=== PATIENT | male | born 1975 | race Caucasian/White ===

== ENCOUNTER 2019-05-25 01:08 | Inpatient (IN) | payer BC ==
[2019-05-25] MEDS ORDERED: niCARdipine 25 MG in Sodium Chloride 0.9% 250 ML 240 ML IVPB SCH (02:15)
[2019-05-25] MEDS ORDERED: Aspirin Chewable 81 MG TAB ONE (02:46)
[2019-05-25] MEDS ORDERED: niCARdipine 25 MG in Sodium Chloride 0.9% 250 ML 250 ML IVPB SCH (06:09)
[2019-05-25] MEDS ORDERED: Dextrose 5% in Water 1,000 ML IV PRN (06:09)
[2019-05-25] MEDS ORDERED: Insulin Regular 300 UNITS/3 ML VIAL SC PRN (06:09)
[2019-05-25] MEDS ORDERED: Dextrose 50% Abboject 50 ML SYRINGE SLOW IVP PRN (06:09)
[2019-05-25] MEDS ORDERED: Acetaminophen 325 MG TAB PO PRN (06:09)
[2019-05-25 06:57] LABS: Troponin I 0.047 ng/mL (< 0.028)
[2019-05-25] MEDS: Ondansetron PF 4 MG/2 ML Vial IVP PRN ×2 (07:46→15:04)
--- NOTE | 2019-05-25 08:01 | HP ---
PRIMARY CARE PHYSICIAN: Dr. Hood. CHIEF COMPLAINT: Headache and neck pain. HISTORY OF PRESENT ILLNESS: Mr. Gates is a very pleasant 44-year-old gentleman, who has a history of hypertension and diabetes. He also has a history of morbid obesity. He has had hypertension for about 4 years that he can remember, and to his knowledge, it was fairly well controlled up until about 6 months ago. He says he had a doctor's visit in [place] and this was about 3 months ago and he was told that his blood pressure was extremely high of about 200 systolic. He also says that when he saw his primary care physician about 6 months ago, it was also elevated, but he does not remember the exact number. He says he has been compliant on his medications. He has not used any cold or decongestants [id number] and says that he has been compliant with a low-sodium diet. But this morning, he started having headache and neck pain as well as saying that it seems like there was like some lines or a blurred vision on the his left eye. For this reason, he came to the ER for evaluation. In the ER, he was found to have a blood pressure over 200 systolic at an outside emergency room and then was transferred to our facility for further evaluation. Currently, the patient is in the ICU on a Cardene drip and is beginning to feel a little bit better, but does note some difficulty in his vision. REVIEW OF SYSTEMS: All systems were reviewed and are negative except for that mentioned in the history of present illness. PAST MEDICAL HISTORY: Significant for hypertension, diabetes mellitus, and obesity. PAST SURGICAL HISTORY: He has had back surgery before. ALLERGIES: TO MORPHINE, WHICH CAUSES HIM TO ITCH. SOCIAL HISTORY: He is a former smoker. He quit several years ago. He used to smoke a pack a day for 20 years. He also is a former drinker. He used to drink alcohol but no longer. Denies any drug use. FAMILY HISTORY: Significant for diabetes mellitus in his father. CURRENT MEDICATIONS: Include 1. Clonidine 0.2 mg twice daily. 2. Aspirin 81 mg daily. 3. Lovastatin 4 mg daily. 4. Metformin 1000 mg twice daily. 5. Lantus insulin 45 units daily. 6. NovoLog 10 units t.i.d. 7. Jardiance 10 mg daily. 8. 9 mg daily. 9. Gabapentin 600 mg t.i.d. 10. Furosemide 40 mg daily. 11. Amlodipine 2.5 mg daily. PHYSICAL EXAMINATION: GENERAL: He is alert and oriented. He appears to be in no acute distress. VITAL SIGNS: Blood pressure is 196/107, heart rate 101, respiratory rate of 16, temperature, he is afebrile. HEENT: Pupils are equal, round, and reactive to light. Extraocular muscles are intact. Sclerae anicteric. Throat, no erythema, no exudates. NECK: No adenopathy, no bruits. LUNGS: Clear to auscultation. There is no wheezing, no rales, no rhonchi. CARDIOVASCULAR: He has a normal S1, S2. There is no S3 or S4. No murmurs, clicks, or rubs. ABDOMEN: Obese, it is soft, nontender, and nondistended. Positive for bowel sounds. No rebound. No guarding. No organomegaly. EXTREMITIES: There is no clubbing or cyanosis. No edema. No calf tenderness. No joint effusions. He has palpable dorsalis pedis pulses bilaterally. NEUROLOGIC: Grossly nonfocal. LABORATORY DATA: CT scan of the brain is negative for any acute intracranial abnormalities. CBC, white blood cell count is 9.2, hemoglobin 17.3, hematocrit is 55.9, and platelet count is 330. Sodium 141, potassium 3.9, chloride is 104, CO2 is 25, BUN of 28, creatinine 1.97, glucose is 112. EKG, is sinus rhythm. He has a rate of 93 and evidence of an incomplete right bundle-branch block. This is by my reading. Chest x-ray also by my reading shows no infiltrate or effusion. ASSESSMENT: 1. This is a pleasant 44-year-old gentleman, who presents to the emergency room with headache and visual changes with an elevated blood pressure. He is being admitted to the ICU for hypertensive emergency. We will continue the Cardene drip. We will increase the dose of his amlodipine as well as consider starting labetalol as it does not appear that he is currently on a beta-bruce and with this degree of elevation in his blood pressure, I suspect he will need a more powerful subtype of the beta-bruce. We will also get a renal ultrasound with resistance pattern to see if he is at risk for renal artery stenosis and we will also be checking an echocardiogram as well. 2. Diabetes mellitus. The patient says that this is generally well controlled. We will go ahead and restart his usual medications as well as a sliding scale insulin. 3. The patient will be placed on DVT and GI prophylaxis. A Critical Care consult will also be obtained. Job ID: [id number]
[2019-05-25] MEDS: cloNIDine 0.2 MG TAB PO SCH ×2 (08:05→20:17)
[2019-05-25] MEDS: niCARdipine 50 MG in Sodium Chloride 0.9% 250 ML 250 ML IVPB SCH ×4 (08:29→16:32)
--- NOTE | 2019-05-25 08:54 | CON ---
DATE OF CONSULTATION: 05/25/2019 REASON FOR CONSULTATION: Hypertensive emergency. HISTORY OF PRESENT ILLNESS: The patient is a 44-year-old male who came to the [facility] last night with chest pain, nausea, and visual changes. He was noted to have a blood pressure of 230/120. He was started on esmolol and nitroglycerin drip. Here he has been converted over to nicardipine. He continues to suffer from headache and nausea. His blood pressure is currently 176/103. PAST MEDICAL HISTORY: 1. Hypertension. 2. Diabetes mellitus type 2, insulin requiring. 3. Hyperlipidemia. 4. Tardive dyskinesia. 5. Peripheral neuropathy from diabetes mellitus. PAST SURGICAL HISTORY: 1. L2-L3 surgery. 2. Head surgery in the past. PSYCHIATRIC HISTORY: Unremarkable. SOCIAL HISTORY: Quit smoking several years ago. Does not consume alcohol. Does not use illicit drugs. He is a former delivery truck driver. He is . MEDICATIONS: Prior to admission 1. Gabapentin 600 mg three times daily. 2. Metformin 1000 mg three times daily. 3. Jardiance 10 mg daily. 4. Amlodipine 2.5 mg daily. 5. Austedo 6 mg once weekly. 6. Clonidine 0.2 mg twice daily. 7. Lasix 40 mg daily. 8. Lovastatin 40 mg daily. 9. Aspirin 81 mg daily. REVIEW OF SYSTEMS: Remarkable for what is noted above. ALLERGIES: MORPHINE. PHYSICAL EXAMINATION: VITAL SIGNS: Temperature 98.3, pulse 115, blood pressure 193/100, O2 saturation 94%, currently on nicardipine 50 mg/hour. HEENT: He is class IV Mallampati airway. NECK: No adenopathy, JVD or bruits. LUNGS: Clear to auscultation. CARDIAC: S1, S2 regular without audible murmur. ABDOMEN: Soft, obese, nontender, nondistended. EXTREMITIES: No clubbing, cyanosis, or edema. DIAGNOSTIC IMAGING: Brain CT demonstrates no acute findings. Chest x-ray, normal heart size, normal lung andrade somewhat under penetrated film. LABORATORY DATA: Sodium 141, potassium 3.9, chloride 104, CO2 of 25, BUN 28, creatinine 1.9, glucose 112. Troponin 0.047. BNP 54.7, albumin 3.3. White blood cell count 9.2, hematocrit 55.9, hemoglobin 17.3, and platelet count 330. ASSESSMENT: 1. Hypertensive emergency. 2. Diabetes mellitus type 2, insulin requiring. 3. Chest pain with mildly elevated troponin. 4. Polycythemia of unknown etiology. 5. Possible obstructive sleep apnea. RECOMMENDATION: 1. Agree with nicardipine drip. 2. May need Hematology consultation for further workup of polycythemia. 3. Needs an outpatient sleep study. Sleep apnea is associated with uncontrolled hypertension. Job ID: [id number]
[2019-05-25] MEDS ORDERED: Promethazine HCl 25 MG/ML VIAL IM PRN (09:15)
--- NOTE | 2019-05-25 09:32 | CT ---
PRELIMINARY REPORT/[facility]/EMERGENCY AFTER HOURS PROCEDURE: PROCEDURE INFORMATION: Exam: CT Head Without Contrast Exam date and time: 05/25/2019 2:07 AM Age: 44 years old Clinical history: Visual disturbance; Patient HX: M44 w/ HX dm presents to the ED for evaluation of H TN, chest pain and vision changes. PT describes vision change as "black lines TECHNIQUE: Imaging protocol: Computed tomography of the head without contrast. COMPARISON: No relevant prior studies available. FINDINGS: Brain: No evidence of acute intracranial hemorrhage, extraxial fluid or midline shift. No evidence of acute large vessel infarction. Small lacunar infarcts right frontal, right temporal areas in subcort ical white matter. Small chronic infarct right cerebellum. Ventricles: Normal. No ventriculomegaly. Bones/joints: Small defect left frontal bone. Sinuses: Visualized sinuses are unremarkable. No fluid levels. Mastoid air cells: Visualized mastoid air cells are well aerated. Soft tissues: Mild right posterior scalp swelling/hematoma. IMPRESSION: 1. No evidence of acute intracranial hemorrhage, extraxial fluid or midline shift. 2. No evidence of acute large vessel infarction. 3. Mild right posterior scalp swelling/hematoma. Thank you for allowing us to participate in the care of your patient. Dictated and Authenticated by: Valentine Carlos MD 05/25/2019 2:16 AM Central Time ([place] & [place]) FINAL REPORT EMERGENCY AFTER HOURS CT BRAIN: DATE: 05/25/19 TIME: 0208 hours COMPARISON: 04/30/18. FINDINGS/IMPRESSION: Stable area of low attenuation change in the right cerebellar hemisphere region. Postop changes of th e left frontal region. Evidence for prior orbital floor fractures. No acute process. Report in agreement with preliminary report given on-call by [email or web address]. POS: [facility]
[2019-05-25] MEDS: Labetalol 100 MG TAB PO SCH ×2 (09:53→20:18)
--- NOTE | 2019-05-25 09:53 | PDOC.HOSPP ---
- Subjective Encounter Date: 05/25/19 Subjective: resting well with c/o nausea and vomiting - Objective Vital Signs & Weight: Vital Signs (12 hours) Temp Pulse Resp BP Pulse Ox 05/25/19 08:00 98.0 F 05/25/19 04:00 98.3 F 98 05/25/19 01:48 98.3 F 88 18 229/135 H 98 Weight Weight 400 lb 2.224 oz Most Recent Monitor Data Heart Rate from ECG 116 NIBP 161/87 NIBP BP-Mean 111 Respiration from ECG 13 SpO2 91 I&O: 05/24/19 05/25/19 05/26/19 06:59 06:59 06:59 Intake Total 100 250 Output Total 500 Balance -400 250 Hospitalist ROS - Review of Systems Other: headache - Medication Medications: Active Medications Generic Name Dose Route Start Last Admin Trade Name Freq PRN Reason Stop Dose Admin Clonidine 0.2 mg 05/25/19 09:00 05/25/19 08:05 Catapres PO 0.2 mg BID TYRONE Administration Nicardipine HCl 50 mg/ Sodium 270 mls @ 0 mls/hr 05/25/19 08:00 05/25/19 08: 29 Chloride IVPB 270 mls INF TYRONE Administration Protocol Titrate Ondansetron HCl 4 mg 05/25/19 07:32 05/25/19 07:46 Zofran IVP 4 mg Q8H PRN Administration Nausea/Vomiting Promethazine HCl 12.5 mg 05/25/19 09:15 05/25/19 09:32 Phenergan IM 12.5 mg Q4H PRN Administration Nausea/Vomiting - Exam Eye: PERRL, anicteric sclera ENT: normocephalic atraumatic, no oropharyngeal lesions, moist mucosa Neck: supple, symmetric, no JVD, no thyromegaly, no lymphadenopathy, no carotid bruit Heart: RRR, no murmur, no gallops, no rubs, normal peripheral pulses Respiratory: CTAB, no wheezes, no rales, no ronchi, normal chest expansion, no tachypnea, normal percussion Gastrointestinal: soft, non-tender, non-distended, normal bowel sounds, no palpable masses, no hepatomegaly, no splenomegaly, no bruit Hosp A/P (1) Hypertensive emergency Code(s): I16.1 - HYPERTENSIVE EMERGENCY Status: Acute Plan: RIGHT NOW ON CLONIDINE,NORVASC AND LABETALOL. (2) Morbid obesity with BMI of 45.0-49.9, adult Code(s): E66.01 - MORBID (SEVERE) OBESITY DUE TO EXCESS CALORIES; Z68.42 - BODY MASS INDEX (BMI) 45.0-49.9, ADULT Status: Acute - Plan old records reviewed/req 1.BP control and taper cardine drip.
[2019-05-25] MEDS: Amlodipine 5 MG TAB PO SCH (09:54)
[2019-05-25] MEDS: Heparin 5,000 UNITS/ML VIAL SC SCH ×3 (09:55→20:18)
--- NOTE | 2019-05-25 09:55 | ULT ---
US Renal Bilateral STANDARD HISTORY: Hypertensive crisis COMPARISON: None. FINDINGS: The exam is technically difficult due to body habitus. Real-time imaging of the right and l eft kidneys were performed. The right kidney measures 13.9 cm, the left kidney 13.6 cm in size. There are no signs of cyst, mass or obstruction. Doppler evaluation with spectral analysis: The right renal artery velocity measurements are 151 cm/s. The left are 81 cm/s. Aortic velocities are 128 cm/s. The renal artery to aortic ratios are within normal limits. The resistive index on the right is 0.82 and on the left 0.74. Bladder region appears unremarkable. IMPRESSION: Mildly elevated right renal artery velocity measurements and a mildly elevated resistive index on the right. If clinically indicated CT angiography would be suggested for further assessment for renal artery stenosis.
[2019-05-25] MEDS: Insulin Regular 300 UNITS/3 ML VIAL SC PRN ×2 (11:29→17:01)
[2019-05-25] MEDS: traMADol HCl 50 MG TAB PO PRN (16:18)
[2019-05-26] MEDS: niCARdipine 50 MG in Sodium Chloride 0.9% 250 ML 250 ML IVPB SCH (01:32)
[2019-05-26 04:05] LABS: Anion Gap 12 mmol/L (10-20); BUN (Urea Nitrogen) 31 mg/dL (8.9-20.6); Calc. Creatinine Clearance 102 mL/min (70-130); Calcium 8.1 mg/dL (7.8-10.44); Carbon Dioxide 24 mmol/L (22-29); Chloride 105 mmol/L (98-107); Estimated GFR-MDRD 30; Glucose 182 mg/dL (70-105); Potassium 4.9 mmol/L (3.5-5.1); Sodium 136 mmol/L (136-145)
[2019-05-26 04:47] LABS: #Basophils 0.1 thou/uL (0.0-0.2); #Eosinphils 0.1 thou/uL (0.0-0.7); #Lymphocytes 2.1 thou/uL (1.20-3.40); #Monocytes 0.8 thou/uL (0.11-0.59); #Neutrophils 6.5 thou/uL (1.40-6.50); %Basophils 0.7 % (0.0-1.0); %Eosinophils 1.4 % (0.0-10.0); %Lymphocytes 21.6 % (21.0-51.0); %Monocytes 8.8 % (0.0-10.0); %Neutrophils 67.6 % (42.0-75.0); Hemoglobin 15.2 g/dL (14.0-18.0); Mean Corpuscular HGB CONC 33.5 g/dL (32.0-36.0); Mean Corpuscular Hemoglobin 28.8 pg (27.0-31.0); Mean Platelet Volume 7.2 fL (7.4-10.4); Platelet Count 254 thou/uL (130-400); RBC Distribution Width 12.5 % (11.5-14.5); Red Blood Cell (RBC) Count 5.28 mill/uL (4.70-6.10); White Blood Cell (WBC) Count 9.6 thou/uL (4.8-10.8)
[2019-05-26 06:13] VITALS: BMI 52.0
[2019-05-26] MEDS: Insulin Regular 300 UNITS/3 ML VIAL SC PRN ×3 (06:25→16:09)
[2019-05-26] MEDS ORDERED: Furosemide 40 MG TAB PO SCH (07:30)
--- NOTE | 2019-05-26 08:44 | PRG ---
DATE OF SERVICE: 05/26/2019 SUBJECTIVE: He remains in the CCU on a Cardene drip. The rate has been weaned to 3 mg/hour. He no longer has headache or chest pain. OBJECTIVE: VITAL SIGNS: Temperature 98.2, pulse 87, blood pressure 164/80, and O2 saturation 94%. HEENT: Unremarkable. NECK: No adenopathy, JVD, or bruits. LUNGS: Clear. CARDIAC: S1 and S2, regular. ABDOMEN: Soft. EXTREMITIES: Trace leg edema. LABORATORY DATA: White blood cell count 9.6, hematocrit 45.4, and platelet count 254. Sodium 136, potassium 4.9, chloride 105, CO2 of 24, BUN 31, creatinine 2.4, and glucose 182. ASSESSMENT: 1. Acute renal insufficiency, probably related to hypertensive nephrosclerosis. 2. Hypertensive emergency. 3. Obesity. 4. Likely underlying obstructive sleep apnea. PLAN: 1. Wean off nicardipine drip. 2. I started to add his Lasix back, but given his increase in creatinine, I think we should go ahead and hold that for another day or two. 3. He needs a sleep study as an outpatient. Job ID: [id number]
[2019-05-26] MEDS: Labetalol 100 MG TAB PO SCH ×2 (08:45→20:45)
[2019-05-26] MEDS: cloNIDine 0.2 MG TAB PO SCH ×2 (08:46→20:44)
[2019-05-26] MEDS: Heparin 5,000 UNITS/ML VIAL SC SCH ×3 (08:46→20:44)
[2019-05-26] MEDS: Amlodipine 5 MG TAB PO SCH (08:46)
--- NOTE | 2019-05-26 09:54 | PDOC.HOSPP ---
- Subjective Encounter Date: 05/26/19 Subjective: headache resolved - Objective Vital Signs & Weight: Vital Signs (12 hours) Temp 05/26/19 08:00 98.5 F 05/26/19 04:00 98.2 F 05/26/19 00:00 98.7 F Weight Weight 405 lb 10.409 oz Most Recent Monitor Data Heart Rate from ECG 93 NIBP 181/91 NIBP BP-Mean 121 Respiration from ECG 17 SpO2 96 I&O: 05/25/19 05/26/19 05/27/19 06:59 06:59 06:59 Intake Total 100 1179 250 Output Total 500 9345 525 Balance -400 -896 -275 Result Diagrams: 05/26/19 04:35 05/26/19 03:31 Additional Labs: Accuchecks 05/26/19 05/25/19 05/25/19 06:24 20:06 16:30 POC Glucose 171 H 194 H 171 H 05/25/19 11:26 POC Glucose 184 H Hospitalist ROS - Review of Systems Constitutional: reports: weakness - Medication Medications: Active Medications Generic Name Dose Route Start Last Admin Trade Name Freq PRN Reason Stop Dose Admin Amlodipine Besylate 5 mg 05/25/19 09:00 05/26/19 08:46 Norvasc PO 5 mg DAILY TYRONE Administration Clonidine 0.2 mg 05/25/19 09:00 05/26/19 08:46 Catapres PO 0.2 mg BID TYRONE Administration Heparin Sodium (Porcine) 5,000 units 05/25/19 09:00 05/26/19 08:46 Heparin SC 5,000 units TID TYRONE Administration Nicardipine HCl 50 mg/ Sodium 270 mls @ 0 mls/hr 05/25/19 08:00 05/26/19 01: 32 Chloride IVPB 270 mls INF TYRONE Administration Protocol Titrate Insulin Human Regular 0 units 05/25/19 06:09 05/26/19 06:25 Humulin R SC 2 unit .MODERATE SLIDING SC PRN Administration Moderate Correctional Scale Labetalol HCl 100 mg 05/25/19 09:00 05/26/19 08:45 Normodyne PO 100 mg BID TYRONE Administration Ondansetron HCl 4 mg 05/25/19 07:32 05/25/19 15:04 Zofran IVP 4 mg Q8H PRN Administration Nausea/Vomiting Promethazine HCl 12.5 mg 05/25/19 09:15 05/25/19 09:32 Phenergan IM 12.5 mg Q4H PRN Administration Nausea/Vomiting Tramadol HCl 50 mg 05/25/19 07:33 05/25/19 16:18 Ultram PO 50 mg Q6H PRN Administration Moderate Pain (4-6) - Exam Eye: PERRL, anicteric sclera ENT: normocephalic atraumatic, no oropharyngeal lesions, moist mucosa Neck: supple, symmetric, no JVD, no thyromegaly, no lymphadenopathy, no carotid bruit Heart: RRR, no murmur, no gallops, no rubs, normal peripheral pulses Respiratory: CTAB, no wheezes, no rales, no ronchi, normal chest expansion, no tachypnea, normal percussion Gastrointestinal: soft, non-tender, non-distended, normal bowel sounds, no palpable masses, no hepatomegaly, no splenomegaly, no bruit Extremities: no cyanosis, no clubbing, no edema Skin: normal turgor, no lesions, no rashes Neurological: cranial nerve grossly intact, normal sensation to touch, no weakness, no focal deficits, no new deficit Musculoskeletal: normal tone, normal strength, no muscle wasting Psychiatric: normal affect, normal behavior, A&O x 3 Hosp A/P (1) Hypertensive emergency Code(s): I16.1 - HYPERTENSIVE EMERGENCY Status: Acute Plan: resolving and will taper cardine drip. (2) Morbid obesity with BMI of 45.0-49.9, adult Code(s): E66.01 - MORBID (SEVERE) OBESITY DUE TO EXCESS CALORIES; Z68.42 - BODY MASS INDEX (BMI) 45.0-49.9, ADULT Status: Acute - Plan old records reviewed/req 1.BP control and taper cardine drip. 2.Will contoinue overlapped anti-hypertensives.
[2019-05-26] MEDS: traMADol HCl 50 MG TAB PO PRN (10:24)
[2019-05-26] MEDS: AUSTEDO 6 MG PO SCH ×2 (11:38→20:48)
[2019-05-26] MEDS ORDERED: niCARdipine 50 MG in Sodium Chloride 0.9% 250 ML 230 ML IVPB SCH (13:30)
[2019-05-27 04:58] LABS: #Eosinphils 0.2 thou/uL (0.0-0.7); #Lymphocytes 1.8 thou/uL (1.20-3.40); #Monocytes 0.7 thou/uL (0.11-0.59); #Neutrophils 5.4 thou/uL (1.40-6.50); %Basophils 0.6 % (0.0-1.0); %Eosinophils 2.4 % (0.0-10.0); %Monocytes 8.7 % (0.0-10.0); %Neutrophils 66.3 % (42.0-75.0); Mean Corpuscular Hemoglobin 28.5 pg (27.0-31.0); Mean Corpuscular Volume 86.5 fL (78.0-98.0); Mean Platelet Volume 7.5 fL (7.4-10.4); Platelet Count 262 thou/uL (130-400); RBC Distribution Width 12.7 % (11.5-14.5); Red Blood Cell (RBC) Count 5.26 mill/uL (4.70-6.10); White Blood Cell (WBC) Count 8.1 thou/uL (4.8-10.8)
[2019-05-27 05:19] LABS: ALT (SGPT) Less than 7 U/L (8-55); AST (SGOT) 10 U/L (5-34); Albumin 2.8 g/dL (3.5-5.0); Alkaline Phosphatase 62 U/L (40-110); Anion Gap 11 mmol/L (10-20); BUN (Urea Nitrogen) 27 mg/dL (8.9-20.6); Bilirubin, Total 0.4 mg/dL (0.2-1.2); Calc. Creatinine Clearance 121 mL/min (70-130); Calcium 8.6 mg/dL (7.8-10.44); Carbon Dioxide 27 mmol/L (22-29); Chloride 106 mmol/L (98-107); Estimated GFR-MDRD 36; Globulin 2.7 g/dL (2.4-3.5); Glucose 156 mg/dL (70-105); Potassium 3.7 mmol/L (3.5-5.1); Protein, Total 5.5 g/dL (6.0-8.3); Sodium 140 mmol/L (136-145)
[2019-05-27] MEDS: Amlodipine 5 MG TAB PO SCH (07:52)
[2019-05-27] MEDS: cloNIDine 0.2 MG TAB PO SCH (07:52)
[2019-05-27] MEDS: Labetalol 100 MG TAB PO SCH (07:52)
[2019-05-27 08:48] LABS: Hemoglobin A1c 6.8 % (4.0-6.0)
[2019-05-27] MEDS ORDERED: NIFEdipine XL 60 MG TAB PO SCH (09:00)
[2019-05-27] MEDS: Heparin 5,000 UNITS/ML VIAL SC SCH ×3 (09:56→20:47)
[2019-05-27] MEDS: AUSTEDO 6 MG PO SCH ×2 (09:58→20:47)
--- NOTE | 2019-05-27 10:52 | PDOC.HOSPP ---
- Subjective Encounter Date: 05/27/19 Encounter Time: 10:35 Subjective: Patient denies CP, SOB, N/V/D/C. Denies any lightheadedness, fever or chills. States that he was informed he has some kidney damage. Not aware of a diagnosis of CKD and does not follow up with nephrology regularly. Lives at home with and children. Doesn't use a cane or walker. - Objective Vital Signs & Weight: Vital Signs (12 hours) Temp Pulse Resp BP BP BP Pulse Ox 05/27/19 09:55 87 188/96 H 05/27/19 07:52 87 188/96 H 05/27/19 07:31 98.5 F 87 18 188/96 H 96 05/27/19 03:57 98.1 F 80 16 176/85 H 93 L 05/26/19 23:45 79 169/80 H Weight Weight 398 lb 8 oz Most Recent Monitor Data Heart Rate from ECG 92 NIBP 196/100 NIBP BP-Mean 132 Respiration from ECG 16 SpO2 97 I&O: 05/26/19 05/27/19 05/28/19 06:59 06:59 06:59 Intake Total 1179 2380 Output Total 2070 4200 Balance -896 -0790 Result Diagrams: 05/27/19 04:03 05/27/19 04:03 Additional Labs: Accuchecks 05/27/19 05/26/19 05/26/19 05:10 22:51 20:59 POC Glucose 133 H 173 H 193 H 05/26/19 05/26/19 16:12 11:36 POC Glucose 189 H 231 H Hospitalist ROS - Medication Medications: Active Medications Generic Name Dose Route Start Last Admin Trade Name Freq PRN Reason Stop Dose Admin Heparin Sodium (Porcine) 5,000 units 05/25/19 09:00 05/27/19 09:56 Heparin SC 5,000 units TID TYRONE Administration Insulin Human Regular 0 units 05/25/19 06:09 05/26/19 16:09 Humulin R SC 2 unit .MODERATE SLIDING SC PRN Administration Moderate Correctional Scale Labetalol HCl 100 mg 05/25/19 09:00 05/27/19 07:52 Normodyne PO 100 mg BID TYRONE Administration Nifedipine 60 mg 05/27/19 09:00 05/27/19 09:55 Procardia Xl PO 60 mg DAILY TYRONE Administration Ondansetron HCl 4 mg 05/25/19 07:32 05/25/19 15:04 Zofran IVP 4 mg Q8H PRN Administration Nausea/Vomiting Austedo 6 Mg 2 each 05/26/19 09:00 05/27/19 09:58 PO 05/30/19 21:00 2 each BID TYRONE Administration Promethazine HCl 12.5 mg 05/25/19 09:15 05/25/19 09:32 Phenergan IM 12.5 mg Q4H PRN Administration Nausea/Vomiting - Exam General Appearance: NAD, awake alert Eye: PERRL, anicteric sclera Heart: RRR, no murmur, no gallops, no rubs Respiratory: CTAB, no wheezes, normal chest expansion Gastrointestinal: soft, non-tender, normal bowel sounds Gastrointestinal - other findings: obese Hosp A/P (1) HTN (hypertension) Code(s): I10 - ESSENTIAL (PRIMARY) HYPERTENSION Status: Chronic Qualifiers: Hypertension type: essential hypertension Qualified Code(s): I10 - Essential (primary) hypertension Plan: Had HTN urgency at presentation Now off cardene drip Was on amlodipine this AM Given his CKD-3, will switch to Nifedipine XR 60 mg PO daily Monitor BP and adjust meds DC clonidine due to risk of rebound HTN (2) CKD (chronic kidney disease), stage III Code(s): N18.3 - CHRONIC KIDNEY DISEASE, STAGE 3 (MODERATE) Status: Chronic Plan: New diagnosis Not under the care of renal now Will consult nephrology US kidneys with no obstruction Check phos, PTH and Vit. D levels Needs outpatient follow up with nephrology after DC Likely due to combination of diabetic and hypertensive nephropathy Avoid nephrotoxic meds and hypotension (3) DM type 2 (diabetes mellitus, type 2) Status: Chronic Qualifiers: Diabetes mellitus chcf insulin use: with salvage determiner use Diabetes mellitus complication status: with kidney complications Diabetes mellitus complication detail: with chronic kidney disease Chronic kidney disease stage : stage 3 (moderate) Qualified Code(s): E11.22 - Type 2 diabetes mellitus with diabetic chronic kidney disease; N18.3 - Chronic kidney disease, stage 3 ( moderate); Z79.4 - exterminator termite (current) use of insulin Plan: HA1C of 6.8 Diabetic diet, basal insulin and SSI Monitor sugars and adjust regimen accordingly DC metformin given CKD - 3/4 (4) Morbid obesity with BMI of 50.0-59.9, adult Code(s): E66.01 - MORBID (SEVERE) OBESITY DUE TO EXCESS CALORIES; Z68.43 - BODY MASS INDEX (BMI) 50.0-59.9, ADULT Status: Chronic
--- NOTE | 2019-05-27 11:59 | CON ---
DATE OF CONSULTATION: REASON FOR CONSULTATION: Elevated creatinine. HISTORY OF PRESENT ILLNESS: A very pleasant 44-year-old gentleman, presented to the hospital for headache and neck pain, for uncontrolled blood pressure, the patient was started on Cardene drip. His creatinine was 2.5, which improved to 2. The patient has had diabetes mellitus and has had a workup for renal artery stenosis. PAST MEDICAL HISTORY: Significant for hypertension, diabetes mellitus, obesity, chronic kidney disease, and neck surgery. ALLERGIES: REVIEWED. HOME MEDICATIONS: List reviewed. HOSPITAL MEDICATIONS: List reviewed. REVIEW OF SYSTEMS: A 15-point review of system was performed, negative except for positives noted above. GENERAL: HEAD: NECK: No swelling or lumps. NOSE: No epistaxis or discharge. EYES: No diplopia or pain. RESPIRATORY: CARDIOVASCULAR: GASTROINTESTINAL: /PREPARER MAKING DEPARTMENT: MUSCULOSKELETAL: No joint pain. NEUROPSYCHIATRIC SYSTEMS: No suicidal ideation. No ideation. SKIN: Denies any rash or ulcer. CONSTITUTIONAL: No fever or chills. PHYSICAL EXAMINATION: GENERAL: The patient is awake and alert. VITAL SIGNS: Afebrile, pulse 75, breathing 16, blood pressure was . GENERAL APPEARANCE AND MENTAL STATUS: Fair. HEAD/NECK: Normocephalic. Atraumatic. EYES: EOMI. No deformity. EARS: Clear. No ulcers. NOSE: Intact. No lesions. MOUTH: Clear. No discharge. THROAT: Clear. No exudate. LUNGS: Clear. No crackles. CARDIAC: S1, S2. No rub. ABDOMEN: Benign. Bowel sounds positive. GENITALIA/RECTUM: Muñoz absent. BACK/EXTREMITIES: Edema 0+. NEUROLOGICAL: Alert and motor intact. SKIN: LYMPHATICS: LABORATORY DATA: Reviewed. ASSESSMENT AND PLAN: 1. Acute kidney injury with chronic kidney disease, most likely due to chronic diabetic and hypertensive disease. We would recommend increasing the labetalol to 200 b.i.d. and increasing the nifedipine to 90 mg daily. 2. Medication based on GFR appropriate. 3. Anemia, stable . We will consider ADITYA once creatinine stabilizes. Job ID: [id number]
[2019-05-27] MEDS: Insulin Regular 300 UNITS/3 ML VIAL SC PRN ×2 (12:14→18:35)
[2019-05-27 12:19] LABS: Amphetamine Not Detected (NotDetected); Barbiturates Screen Not Detected (NotDetected); Benzodiazepine Screen Not Detected (NotDetected); Cocaine Metabolite Screen Not Detected (NotDetected); Medtox Control Line Valid? VALID (VALID); Medtox Reader # READER 4; Methadone Not Detected (NotDetected); Methamphetamine Not Detected (NotDetected); Opiate Screen Not Detected (NotDetected); Oxycodone Screen Not Detected (NotDetected); Phencyclidine (PCP) Not Detected (NotDetected); THC/Cannabinoid Screen Not Detected (NotDetected); Tricyclic Screen Not Detected (NotDetected)
[2019-05-27 12:51] LABS: Phosphorus 3.1 mg/dL (2.3-4.7)
[2019-05-27] MEDS ORDERED: Labetalol 100 MG TAB PO SCH ×2 (16:30→21:00)
[2019-05-27] MEDS ORDERED: cloNIDine 0.1 MG TAB PO PRN (20:16)
[2019-05-27] MEDS ORDERED: hydrALAZINE 20 MG/ML VIAL SLOW IVP PRN (20:18)
[2019-05-27] MEDS ORDERED: Insulin Glargine 25 UNITS in Pre-Filled Syringe 1 EACH SC SCH (21:00)
[2019-05-28] MEDS ORDERED: Gabapentin 300 MG CAP PO SCH ×2 (00:15→09:00)
[2019-05-28 05:08] LABS: #Basophils 0.1 thou/uL (0.0-0.2); #Eosinphils 0.2 thou/uL (0.0-0.7); #Lymphocytes 1.7 thou/uL (1.20-3.40); #Monocytes 0.8 thou/uL (0.11-0.59); #Neutrophils 6.1 thou/uL (1.40-6.50); %Basophils 0.6 % (0.0-1.0); %Eosinophils 1.9 % (0.0-10.0); %Lymphocytes 19.3 % (21.0-51.0); %Monocytes 8.7 % (0.0-10.0); %Neutrophils 69.4 % (42.0-75.0); Hemoglobin 15.8 g/dL (14.0-18.0); Mean Corpuscular HGB CONC 32.9 g/dL (32.0-36.0); Mean Corpuscular Hemoglobin 28.3 pg (27.0-31.0); Mean Corpuscular Volume 85.9 fL (78.0-98.0); Mean Platelet Volume 7.5 fL (7.4-10.4); Platelet Count 270 thou/uL (130-400); RBC Distribution Width 12.7 % (11.5-14.5); Red Blood Cell (RBC) Count 5.58 mill/uL (4.70-6.10); White Blood Cell (WBC) Count 8.8 thou/uL (4.8-10.8)
[2019-05-28 05:23] LABS: Anion Gap 10 mmol/L (10-20); BUN (Urea Nitrogen) 24 mg/dL (8.9-20.6); Calc. Creatinine Clearance 129 mL/min (70-130); Calcium 8.9 mg/dL (7.8-10.44); Carbon Dioxide 26 mmol/L (22-29); Chloride 106 mmol/L (98-107); Estimated GFR-MDRD 39; Glucose 196 mg/dL (70-105); Potassium 3.8 mmol/L (3.5-5.1); Sodium 138 mmol/L (136-145)
[2019-05-28] MEDS: Heparin 5,000 UNITS/ML VIAL SC SCH (08:06)
[2019-05-28] MEDS: AUSTEDO 6 MG PO SCH (08:06)
[2019-05-28] MEDS ORDERED: Labetalol 100 MG TAB PO SCH (09:00)
[2019-05-28] MEDS ORDERED: Ergocalciferol 1.25 MG(50,000 UNITS) CAP PO SCH (09:00)
[2019-05-28] MEDS ORDERED: NIFEdipine XL 60 MG TAB PO SCH (09:00)
[2019-05-28] MEDS: Insulin Regular 300 UNITS/3 ML VIAL SC PRN (11:47)
[2019-05-28 12:09] VITALS: TEMP 98.4
--- NOTE | 2019-05-28 12:09 | PRG ---
DATE OF SERVICE: 05/28/2019 SUBJECTIVE: A 44-year-old gentleman being seen for acute kidney injury. The patient denied any nausea, vomiting, or chest pain. OBJECTIVE: See above. The patient is awake and alert. GENERAL APPEARANCE AND MENTAL STATUS: Fair. VITAL SIGNS: Afebrile, pulse 75, breathing 16, and blood pressure 150/82. HEAD/NECK: Normocephalic. Atraumatic. EYES: EOMI. No deformity. EARS: Clear. No ulcers. NOSE: Intact. No lesions. MOUTH: Clear. No discharge. THROAT: Clear. No exudate. LUNGS: Clear. No crackles. CARDIAC: S1, S2. No rub. ABDOMEN: Benign. Bowel sounds positive. GENITALIA/RECTUM: Muñoz absent. BACK/EXTREMITIES: Edema 0+. NEUROLOGICAL: Alert and motor intact. SKIN: LYMPHATICS: LABORATORY DATA: Labs show creatinine 1.8. ASSESSMENT AND PLAN: 1. Acute kidney injury with chronic kidney disease, stage 3, improved. 2. Acute tubular necrosis, improved. 3. Hypertension, stable. 4. Anemia, stable. The patient will follow up as outpatient in the clinic. 5. Low vitamin D level. Recommend 50,000 units of vitamin D every week for 4 weeks. Job ID: [id number]
[2019-05-28 12:10] VITALS: BP 158/68
--- NOTE | 2019-05-28 15:09 | DIS ---
DATE OF ADMISSION: 05/25/2019 DATE OF DISCHARGE: 05/28/2019 PRIMARY CARE PHYSICIAN: See Barrera MD ADMISSION DIAGNOSES: 1. Hypertensive urgency. 2. Acute kidney injury on chronic kidney disease. 3. Diabetes mellitus, type 2. DISCHARGE DIAGNOSES: 1. Essential hypertension with hypertensive urgency on presentation. 2. Diabetes mellitus type 2 with diabetic nephropathy and chronic kidney disease, stage 3. 3. Acute kidney injury on chronic kidney disease, stage 3. 4. Morbid obesity. PROCEDURES AND IMAGING DURING HOSPITAL STAY: The patient had an echocardiogram which reveals a preserved ejection fraction of 55% to 60%. No evidence of mitral regurgitation or mitral valve stenosis. The patient underwent a renal ultrasound which revealed mildly elevated renal artery velocity measurements and mildly elevated resistive index on the right. The patient underwent a CT scan of the brain/head on the day of presentation, which did not reveal any acute intracranial hemorrhage or large vessel infarction. HOSPITAL COURSE: The patient is a 44-year-old male with past medical history of diabetes mellitus and essential hypertension, who presented to the emergency department due to headache. The patient was found to have elevated blood pressures with the systolic blood pressure in the 200s. The patient was admitted with diagnosis of hypertensive urgency and placed on Cardene drip. He was also started on labetalol as well as amlodipine. The patient was initially felt to have acute kidney injury. However, the patient was subsequently found to have chronic kidney disease, stage 3. Hence, the amlodipine was switched to nifedipine extended release. Nephrology was also consulted. The patient was evaluated by Dr. Moses Grijalva. Ultrasound of the kidneys did not demonstrate any obstructive uropathy. The patient's blood pressure adequately controlled on nifedipine 90 mg p.o. daily and labetalol 200 mg p.o. b.i.d. His metformin has been discontinued due to his chronic kidney disease, stage 3. As the patient's blood pressures adequately controlled and he has been cleared by Nephrology, the patient has been deemed stable to be discharged to home today. On the day of discharge, the patient was sitting on the couch and appears to be in no acute distress. Auscultation of the lungs revealed clear breath sounds bilaterally. DISCHARGE INSTRUCTIONS: Discharge disposition: Home. Discharge medications have been reconciled. New medications include: 1. Nifedipine extended release 90 mg p.o. daily. 2. Labetalol 200 mg p.o. b.i.d. 3. Vitamin D2, 50,000 units p.o. once week. Discharge followup: 1. Primary care physician, Dr. See Barrera in [address] Moses Grijalva in 3 to 4 weeks. Discharge activity: As tolerated. Discharge diet: Diabetic, low-sodium, heart healthy diet. TIME SPENT: Total time taken for discharge - 40 minutes. Job ID: [id number]
[2019-05-31] MEDS ORDERED: AUSTEDO 6 MG PO SCH (09:00)
[2019-05-31] MEDS ORDERED: AUSTEDO 9 MG PO SCH (09:00)
== END 2019-05-28 12:05 | disposition home or self-care (01) | DRG 304 ==
LOC: ERS 01:08 → CCU 02:12 → 2NO 05-26 22:35
PROVIDERS: ADMIT Internal Medicine; ATTEND Internal Medicine
PROC: 3E0234Z Introduction of Serum, Toxoid and Vaccine into Muscle, Percutaneous Approach (ICD-10-PCS; principal; 2019-05-25)
DX: I16.1 Hypertensive emergency (principal); N17.0 Acute kidney failure with tubular necrosis; Z68.43 Body mass index [BMI] 50.0-59.9, adult; Z23 Encounter for immunization; E78.5 Hyperlipidemia, unspecified; E78.00 Pure hypercholesterolemia, unspecified; E66.01 Morbid (severe) obesity due to excess calories; E11.42 Type 2 diabetes mellitus with diabetic polyneuropathy; D75.1 Secondary polycythemia; I12.9 Hypertensive chronic kidney disease with stage 1 through stage 4 chronic kidney disease, or unspecified chronic kidney disease; N18.3 Chronic kidney disease, stage 3 (moderate); E11.22 Type 2 diabetes mellitus with diabetic chronic kidney disease; D63.1 Anemia in chronic kidney disease; E11.21 Type 2 diabetes mellitus with diabetic nephropathy; Z87.820 Personal history of traumatic brain injury; Z87.891 Personal history of nicotine dependence; Z88.5 Allergy status to narcotic agent; Z79.82 Long term (current) use of aspirin; Z79.899 Other long term (current) drug therapy; Z79.4 Long term (current) use of insulin
CPT/HCPCS: 36415; 36416; 70450; 76770; 80048; 80053; 80306; 82306; 83036; 83970; 84100; 84484; 85025; 93306; 93975; J0360; J1644; J1815; J2405; J2550; J7050

== ENCOUNTER 2019-06-05 14:06 | Inpatient (IN) | payer BC ==
--- NOTE | 2019-06-05 15:16 | RAD ---
PORTABLE CHEST: HISTORY: Chest pain. FINDINGS: The lungs appear clear. No infiltrate or vascular congestion. Heart size is upper normal. IMPRESSION: No acute process. POS: [facility]
[2019-06-05 15:26] LABS: #Eosinphils 0.1 thou/uL (0.0-0.7); #Lymphocytes 1.3 thou/uL (1.20-3.40); #Monocytes 0.6 thou/uL (0.11-0.59); #Neutrophils 6.2 thou/uL (1.40-6.50); %Basophils 0.3 % (0.0-1.0); %Eosinophils 1.2 % (0.0-10.0); %Lymphocytes 16.3 % (21.0-51.0); %Neutrophils 75.3 % (42.0-75.0); Hemoglobin 16.7 g/dL (14.0-18.0); Mean Corpuscular HGB CONC 32.6 g/dL (32.0-36.0); Mean Corpuscular Hemoglobin 28.1 pg (27.0-31.0); Mean Corpuscular Volume 86.1 fL (78.0-98.0); Mean Platelet Volume 6.9 fL (7.4-10.4); Platelet Count 308 thou/uL (130-400); RBC Distribution Width 12.5 % (11.5-14.5); Red Blood Cell (RBC) Count 5.95 mill/uL (4.70-6.10); White Blood Cell (WBC) Count 8.2 thou/uL (4.8-10.8)
[2019-06-05 15:45] LABS: ALT (SGPT) 8 U/L (8-55); AST (SGOT) 16 U/L (5-34); Albumin 3.4 g/dL (3.5-5.0); Alkaline Phosphatase 79 U/L (40-110); Anion Gap 13 mmol/L (10-20); BUN (Urea Nitrogen) 23 mg/dL (8.9-20.6); Bilirubin, Total 0.4 mg/dL (0.2-1.2); Calc. Creatinine Clearance 0 mL/min (70-130); Calcium 8.9 mg/dL (7.8-10.44); Carbon Dioxide 26 mmol/L (22-29); Chloride 103 mmol/L (98-107); Estimated GFR-MDRD 32; Globulin 3.3 g/dL (2.4-3.5); Glucose 132 mg/dL (70-105); Lipase 23 U/L (8-78); Potassium 4.5 mmol/L (3.5-5.1); Protein, Total 6.7 g/dL (6.0-8.3); Sodium 137 mmol/L (136-145)
[2019-06-05] MEDS ORDERED: Furosemide 40 MG/4 ML VIAL ONE (16:11)
[2019-06-05] MEDS ORDERED: Ondansetron PF 4 MG/2 ML Vial IVP PRN (16:20)
[2019-06-05] MEDS ORDERED: Ondansetron ODT 4 MG TAB SL PRN (16:20)
[2019-06-05] MEDS ORDERED: Acetaminophen 325 MG TAB PO PRN ×2 (16:20→22:42)
--- NOTE | 2019-06-05 18:08 | CON ---
DATE OF CONSULTATION: REASON FOR CONSULTATION: Edema and acute renal failure. HISTORY OF PRESENT ILLNESS: This is a very pleasant 44-year-old gentleman, who presented to the hospital with worsening edema and rise in creatinine. The patient was in his usual state of health after discharge on May 28 and presented to the hospital with increasing nausea and dyspnea on minimal exertion just up to 20 feet. The patient denies no chest pain, but has orthopnea and PND and has 4+ edema. PAST MEDICAL HISTORY: Hypertension, diabetes, obesity, and neck surgery. ALLERGIES: REVIEWED. HOME MEDICATIONS: List reviewed. REVIEW OF SYSTEMS: A 15-point review of system was performed, negative except for positives noted above. GENERAL: HEAD: NECK: No swelling or lumps. NOSE: No epistaxis or discharge. EYES: No diplopia or pain. RESPIRATORY: CARDIOVASCULAR: GASTROINTESTINAL: /MILIEU COORDINATOR: MUSCULOSKELETAL: No joint pain. NEUROPSYCHIATRIC SYSTEMS: No suicidal ideation. No ideation. SKIN: Denies any rash or ulcer. CONSTITUTIONAL: No fever or chills. SOCIAL: No alcohol or drug use. PHYSICAL EXAMINATION: GENERAL: The patient is awake and alert, in [id number] distress. VITAL SIGNS: Afebrile, pulse 75, breathing 16, and blood pressure was 170/80. GENERAL APPEARANCE AND MENTAL STATUS: Fair. HEAD/NECK: Normocephalic. Atraumatic. EYES: EOMI. No deformity. EARS: Clear. No ulcers. NOSE: Intact. No lesions. MOUTH: Clear. No discharge. THROAT: Clear. No exudate. LUNGS: Clear. No crackles. CARDIAC: S1, S2. No rub. ABDOMEN: Benign. Bowel sounds positive. GENITALIA/RECTUM: Muñoz absent. BACK/EXTREMITIES: Edema 0+. NEUROLOGICAL: Alert and motor intact. SKIN: LYMPHATICS: LABORATORY DATA: Creatinine 2.2. ASSESSMENT AND PLAN: Acute kidney injury with chronic kidney disease, most likely due to cardiorenal syndrome. Continue aggressive diuresis with Lasix 40 mg IV 3 times a day. Anemia, stable. Medication based on GFR appropriate. No indication for dialysis. I would recommend cardiac evaluation for dyspnea to rule out any occult coronary artery disease. Job ID: [id number]
[2019-06-05 18:11] VITALS: BMI 49.2
[2019-06-05] MEDS ORDERED: Dextrose 5% in Water 1,000 ML IV PRN (18:14)
[2019-06-05] MEDS ORDERED: HumaLOG 300 UNITS/3 ML VIAL SC PRN (18:14)
[2019-06-05] MEDS ORDERED: Dextrose 50% Abboject 50 ML SYRINGE SLOW IVP PRN (18:14)
[2019-06-05 18:35] LABS: Troponin I Less than 0.010 ng/mL (< 0.028)
--- NOTE | 2019-06-05 18:52 | ULT ---
Venous duplex sonogram bilateral lower extremity HISTORY: Bilateral leg pain and edema. FINDINGS: Each common femoral vein and greater saphenous junction were evaluated along with each femo ral, deep femoral, popliteal, and posterior tibial vein. There is good color and spectral Doppler flow and compression. IMPRESSION: No sonographic evidence of DVT within either lower extremity.
--- NOTE | 2019-06-05 19:20 | HP ---
TIME OF ASSESSMENT: 1700 CHIEF COMPLAINT: Shortness of breath and chest pain. HISTORY OF PRESENT ILLNESS: Mr. Gates is a 44-year-old gentleman who presents to the emergency department with complaints of persisting chest pain and shortness of breath with any exertion. He describes the chest pain as a sensation of tightness which again occurs any time he tries to walk including short walks to the bathroom. Patient states he is feeling this way prior to his most recent admission and since being discharge, has noted persistent symptoms. He had been admitted on May 25 until May 28 and was treated for hypertensive urgency as well as acute on chronic kidney disease. The patient due to his renal function, he underwent adjustment in his blood pressure medications. The amlodipine was switched to nifedipine extended release and he was seen by Dr. Grijalva who obtained an ultrasound that showed no obstructive uropathy. The patient was discharged after adequate blood pressure control was obtained. He was advised to follow up with his primary care physician and Dr. Grijalva as an outpatient. The patient states that though his symptoms have not worsened since discharge, they have not improved either. He has persisting swelling in the lower extremities, which is unchanged. He denies having any recent fevers, chills, or sweats. Denies any cough or hemoptysis. According to the patient when he is resting, he has absolutely no episodes of shortness of breath or chest pain. It is only with any exertion that the tightness and shortness of breath come on. Of note, during his admission last month, he did undergo an echocardiogram that showed a normal-sized left ventricle with an EF of 55% to 60%. He had no evidence of any valve stenosis or regurgitation. In the emergency department, the patient underwent laboratory studies that showed normal blood count. Sodium was 137, potassium 4.5, BUN 13, creatinine 2.23, GFR 32, glucose 132, and calcium 8.9. LFTs unremarkable troponin I negative. BNP 33. Albumin 3.4. Lipase normal. Imaging data done in the emergency department included a chest x-ray which shows no acute process. According to Dr. Denis, the case was discussed with Dr. Grijalva, who given the lower extremity edema, advised 40 mg of Lasix and to continue with 40 mg twice daily as he was believed to have shortness of breath associated with CHF exacerbation. PAST MEDICAL HISTORY: 1. Morbid obesity. 2. CKD, stage 3. 3. Type 2 diabetes mellitus. 4. Hypertension. 5. Hyperlipidemia. 6. Tardive dyskinesia. PAST SURGICAL HISTORY: 1. L2-L3 surgery. 2. Head surgery, status post head injury. SOCIAL HISTORY: Patient is a former smoker. He quit more than 2 years ago. Denies any alcohol consumption or illicit drug use. ALLERGIES: MORPHINE CAUSES ITCHING. CURRENT MEDICATIONS: 1. Lovastatin. 2. Gabapentin. 3. Amlodipine. 4. Vitamin D2. 5. Labetalol. 6. Nifedipine. 7. Austedo. PHYSICAL EXAMINATION: GENERAL: The patient appears morbidly obese. He is resting on stretcher and is in no acute distress. VITAL SIGNS: Temperature 98.2, pulse 77, respirations 14, blood pressure 166/83, and O2 saturation 98% on room air. HEENT: Normocephalic and atraumatic. Pupils are equal, round, and reactive to light. Sclerae icterus. Oropharynx is clear. NECK: Supple. LUNGS: Clear to auscultation bilaterally without any wheezes, rales, or rhonchi. CARDIAC: Regular rate and rhythm without audible murmurs, rubs, or gallops. CHEST WALL: No chest wall tenderness. ABDOMEN: Morbidly obese. Nondistended. No guarding or rigidity. No renal angle tenderness. EXTREMITIES: Notable for lower extremity swelling, the right appears worse than the left. NEUROLOGIC: Alert and oriented x3. No neuro deficits on exam. Speech is normal. SKIN: Face appears flushed. Otherwise, skin is normal, warm, and dry. INVESTIGATIONS: As mentioned above in HPI. IMPRESSION AND PLAN: Mr. Gates is a 44-year-old gentleman who presents with shortness of breath and chest tightness. Has been referred for management of the followin. Acute coronary syndrome, rule out. Chest x-ray was unremarkable. He has not had an EKG which was unremarkable per Dr. Moore. Initial troponin negative. We will continue to trend troponins. Patient remains pain-free and states he is usually pain-free as well as he is not moving. Given his sedentary nature and lower leg swelling, we will obtain venous Doppler to assess for possibility of deep venous thromboses. If negative, we will discuss further with attending. We will obtain a D-dimer. If positive, will likely undergo V/Q scan since renal function would limit from being able to undergo CT angiogram. Cardiology consult has been placed. 2. Hypertension. Resume home medications once verified. Monitor blood pressure. 3. Lower extremity edema. Continue Lasix as per Dr. Grijalva. 4. Hyperlipidemia. Resume home medications once verified. 5. Diabetes mellitus. Insulins. Monitor blood glucose. Insulin sliding scale ordered. 6. Gastrointestinal prophylaxis with famotidine. 7. Code status. Full. His surrogate decision maker is his , Giovanna Gates. Patient's case was discussed with Dr. Pizano, who agrees with the plan of care as described above. Job ID: [id number]
[2019-06-05] MEDS: Gabapentin 300 MG CAP PO SCH (20:12)
[2019-06-05] MEDS: Simvastatin 5 MG TAB PO SCH (20:13)
[2019-06-05] MEDS: Labetalol 100 MG TAB PO SCH (20:16)
[2019-06-05] MEDS ORDERED: Deutetrabenazine [Austedo] 12 MG PO SCH (21:00)
[2019-06-05] MEDS ORDERED: Gabapentin 100 MG CAP PO SCH (21:00)
[2019-06-05 21:39] LABS: Troponin I 0.025 ng/mL (< 0.028)
[2019-06-05] MEDS ORDERED: hydrALAZINE 20 MG/ML VIAL SLOW IVP PRN (22:40)
[2019-06-05] MEDS ORDERED: Acetaminophen 650 MG Suppository PR PRN (22:42)
[2019-06-05 22:43] LABS: Thyroid Stimulating Hormone 0.9233 uIU/mL (0.35-4.94)
[2019-06-06 05:32] LABS: #Basophils 0.1 thou/uL (0.0-0.2); #Eosinphils 0.2 thou/uL (0.0-0.7); #Lymphocytes 1.9 thou/uL (1.20-3.40); #Monocytes 0.6 thou/uL (0.11-0.59); #Neutrophils 5.1 thou/uL (1.40-6.50); %Basophils 0.8 % (0.0-1.0); %Eosinophils 2.8 % (0.0-10.0); %Lymphocytes 24.1 % (21.0-51.0); %Monocytes 8.1 % (0.0-10.0); %Neutrophils 64.2 % (42.0-75.0); Hemoglobin 16.2 g/dL (14.0-18.0); Mean Corpuscular HGB CONC 32.7 g/dL (32.0-36.0); Mean Corpuscular Hemoglobin 28.1 pg (27.0-31.0); Mean Corpuscular Volume 86.1 fL (78.0-98.0); Platelet Count 287 thou/uL (130-400); RBC Distribution Width 12.6 % (11.5-14.5); Red Blood Cell (RBC) Count 5.77 mill/uL (4.70-6.10)
[2019-06-06 05:47] LABS: Anion Gap 13 mmol/L (10-20); BUN (Urea Nitrogen) 22 mg/dL (8.9-20.6); Calc. Creatinine Clearance 118 mL/min (70-130); Calcium 8.6 mg/dL (7.8-10.44); Carbon Dioxide 25 mmol/L (22-29); Chloride 104 mmol/L (98-107); Estimated GFR-MDRD 37; Glucose 101 mg/dL (70-105); Potassium 3.6 mmol/L (3.5-5.1); Sodium 138 mmol/L (136-145)
[2019-06-06] MEDS ORDERED: Amlodipine 5 MG TAB PO SCH (09:00)
[2019-06-06] MEDS ORDERED: FLU VACC QS2019-20(6MOS UP)/PF 60 MCG/0.5 ML SYRINGE IM ONE (09:00)
[2019-06-06] MEDS: Gabapentin 300 MG CAP PO SCH ×3 (09:06→20:08)
[2019-06-06] MEDS: Aspirin Chewable 81 MG TAB PO SCH (09:06)
[2019-06-06] MEDS: Famotidine/PF 20 mg/2ml Vial SLOW IVP SCH ×2 (09:07→20:08)
[2019-06-06] MEDS: Labetalol 100 MG TAB PO SCH ×2 (09:07→20:09)
[2019-06-06] MEDS: NIFEdipine XL 60 MG TAB PO SCH (09:07)
[2019-06-06] MEDS ORDERED: Furosemide 40 MG/4 ML VIAL SLOW IVP SCH ×2 (12:15→12:45)
--- NOTE | 2019-06-06 12:31 | PDOC.HOSPP ---
- Subjective Encounter Date: 06/06/19 Encounter Time: 10:25 Subjective: no chest pain or sob or palp feels better no prior cardiac stress test per patient - Objective Vital Signs & Weight: Vital Signs (12 hours) Temp Pulse Resp BP BP BP BP 06/06/19 12:05 80 157/77 H 06/06/19 11:27 98.5 F 82 16 189/92 H 06/06/19 09:07 82 170/86 H 06/06/19 09:06 82 170/86 H 06/06/19 07:50 98.2 F 82 22 H 178/101 H 186/98 H 06/06/19 04:45 98.5 F 87 18 148/80 H BP Pulse Ox 06/06/19 12:05 06/06/19 11:27 96 06/06/19 09:07 06/06/19 09:06 06/06/19 07:50 170/86 H 96 06/06/19 04:45 94 L Weight Weight 383 lb 8 oz I&O: 06/05/19 06/06/19 06/07/19 06:59 06:59 06:59 Intake Total 720 Output Total 1750 Balance -1030 Result Diagrams: 06/06/19 04:58 06/06/19 04:58 Additional Labs: Accuchecks 06/06/19 06/05/19 10:44 20:54 POC Glucose 94 120 H Hospitalist ROS - Medication Medications: Active Medications Generic Name Dose Route Start Last Admin Trade Name Freq PRN Reason Stop Dose Admin Amlodipine Besylate 2.5 mg 06/06/19 09:00 06/06/19 09:06 Norvasc PO 2.5 mg DAILY TYRONE Administration Aspirin 81 mg 06/06/19 09:00 06/06/19 09:06 Aspirin Chewable PO 81 mg DAILY TYRONE Administration Famotidine 20 mg 06/06/19 09:00 06/06/19 09:07 Pepcid SLOW IVP 20 mg Q12HR TYRONE Administration Gabapentin 600 mg 06/05/19 21:00 06/06/19 09:06 Neurontin PO 600 mg TID TYRONE Administration Labetalol HCl 150 mg 06/05/19 21:00 06/06/19 09:07 Normodyne PO 150 mg BID TYRONE Administration Nifedipine 120 mg 06/06/19 09:00 06/06/19 09:07 Procardia Xl PO 120 mg DAILY TYRONE Administration Simvastatin 10 mg 06/05/19 21:00 06/05/19 20:13 Zocor PO 10 mg HS TYRONE Administration - Exam General Appearance: NAD, awake alert Eye: PERRL, anicteric sclera ENT: no oropharyngeal lesions, moist mucosa Neck: supple, no JVD Heart: RRR, no murmur Respiratory: no wheezes, no rales Gastrointestinal: soft, non-tender, non-distended, normal bowel sounds Extremities: no cyanosis, no edema Neurological: cranial nerve grossly intact, no focal deficits Psychiatric: normal affect, A&O x 3 Hosp A/P (1) Chest pain Code(s): R07.9 - CHEST PAIN, UNSPECIFIED Status: Acute (2) [place] (acute kidney injury) Code(s): N17.9 - ACUTE KIDNEY FAILURE, UNSPECIFIED Status: Acute (3) Morbid obesity with BMI of 45.0-49.9, adult Code(s): E66.01 - MORBID (SEVERE) OBESITY DUE TO EXCESS CALORIES; Z68.42 - BODY MASS INDEX (BMI) 45.0-49.9, ADULT Status: Chronic (4) CKD (chronic kidney disease), stage III Code(s): N18.3 - CHRONIC KIDNEY DISEASE, STAGE 3 (MODERATE) Status: Chronic (5) DM type 2 (diabetes mellitus, type 2) Status: Chronic Qualifiers: Diabetes mellitus oil heaterman insulin use: with oil heaterman use Diabetes mellitus complication status: with kidney complications Diabetes mellitus complication detail: with chronic kidney disease Chronic kidney disease stage : stage 3 (moderate) Qualified Code(s): E11.22 - Type 2 diabetes mellitus with diabetic chronic kidney disease; N18.3 - Chronic kidney disease, stage 3 ( moderate); Z79.4 - halfway (current) use of insulin (6) HTN (hypertension) Code(s): I10 - ESSENTIAL (PRIMARY) HYPERTENSION Status: Chronic Qualifiers: - Plan stress test if his weight is ok with nuclear stress test table hemostable continue home meds as above got diuresed per nephr adv creatinine is down to 1.9 this am from 2.3
--- NOTE | 2019-06-06 13:20 | PRG ---
DATE OF SERVICE: 06/06/2019 SUBJECTIVE: A 44-year-old gentleman, being seen for acute kidney injury. The patient denied any nausea, vomiting, or chest pain. OBJECTIVE: See above. Awake, alert, in no acute distress. VITAL SIGNS: Afebrile, pulse 80, breathing 16, and blood pressure 157/77. GENERAL APPEARANCE AND MENTAL STATUS: Fair. HEAD/NECK: Normocephalic. Atraumatic. EYES: EOMI. No deformity. EARS: Clear. No ulcers. NOSE: Intact. No lesions. MOUTH: Clear. No discharge. THROAT: Clear. No exudate. LUNGS: Clear. No crackles. CARDIAC: S1, S2. No rub. ABDOMEN: Benign. Bowel sounds positive. GENITALIA/RECTUM: Muñoz absent. BACK/EXTREMITIES: Edema 0+. NEUROLOGICAL: Alert and motor intact. SKIN: LYMPHATICS: LABORATORY DATA: Creatinine 1.9. ASSESSMENT AND PLAN: 1. Acute kidney injury with chronic kidney disease stage 3, improved. 2. Acute tubular necrosis. Improved. 3. Hypertension, stable. 4. Congestive heart failure. Continue Lasix. Cardiology consult noted. Job ID: [id number]
[2019-06-06] MEDS: Simvastatin 5 MG TAB PO SCH (20:09)
--- NOTE | 2019-06-07 02:06 | CON ---
DATE OF CONSULTATION: REASON FOR CONSULTATION: Throat and chest tightness, peripheral edema, uncontrolled hypertension, morbid obesity. HISTORY OF PRESENT ILLNESS: Mr. Gilberto Gates is a very pleasant gentleman. He has developed a very vuseuywhb-mz-pzlhpmi hypertension. He was recently admitted to the hospital and placed on high dose nifedipine which helped control his blood pressure, but his peripheral edema has worsened, however, very concerning to him he has also developed a tightness in his throat and across his chest with low level of activity. FAMILY HISTORY: His father in his 40s, but his father was "a bad diabetic" and had a urinary tract infection with sepsis. He self catheterized himself. The patient is an only child. The patient does not use tobacco. Otherwise, he has been noted to have daytime sleepiness. He wakes up tired. He snores. It sounds like he has sleep apnea. The patient also has intermittent numbness to his legs when he walks, sounds like low back symptoms. MEDICATIONS: At home, the patient was takin. Procardia XL 120 mg a day. 2. Labetalol. 3. Lovastatin. 4. Aspirin. 5. Insulin. REVIEW OF SYSTEMS: CONSTITUTIONAL: No significant weight gain or loss. VISION: No changes. HEARING: No changes. PULMONARY: No cough or wheezing. GASTROINTESTINAL: No nausea, vomiting, diarrhea. SKIN: No rashes. NEUROLOGIC: No unilateral weakness or numbness, but he did have intermittent bilateral numbness with walking. PHYSICAL EXAMINATION: GENERAL: This is a very pleasant gentleman. He is 6 feet 2 inches tall, 383 pounds on the bed scale. He said when they weighed gun downstairs he was 390 pounds. VITAL SIGNS: Blood pressure 174/87, pulse 80 and regular. EYES: Sclerae nonicteric. MOUTH: Mucous membranes moist. NECK: Supple. No lymphadenopathy. HEART: Distant heart sounds. I do not hear murmur, rub, or gallop. ABDOMEN: Morbidly obese. EXTREMITIES: No clubbing or cyanosis. There is moderate edema. I do not feel pedal pulses but could be due to the edema. I do not feel popliteal pulses. I do not feel femoral pulses, but they are probably very deep. Radial pulses are easily palpable. DIAGNOSTIC DATA: Echocardiogram done recently showed normal left ventricular function. EKG; sinus rhythm, no acute changes. ASSESSMENT: 1. Morbid obesity. 2. Severe hypertension. 3. Renal insufficiency. Estimated GFR is 37. 4. Edema, probably multifactorial, probably largely due secondary to nifedipine high doses being needed to control blood pressure. 5. Chest pressure, suspicious for angina. PLAN: 1. The stress test is being done. The second part will be completed tomorrow. 2. Discussed potential bariatric surgery such as gastric sleeve. He indicates he may be interested in that. 3. If the stress test is normal, may need to try to reduce the nifedipine dose and add hydralazine to try to help control the edema. I will be glad to follow with you this pleasant gentleman. Job ID: [id number]
[2019-06-07 05:01] LABS: #Basophils 0.1 thou/uL (0.0-0.2); #Eosinphils 0.2 thou/uL (0.0-0.7); #Lymphocytes 1.7 thou/uL (1.20-3.40); #Monocytes 0.8 thou/uL (0.11-0.59); #Neutrophils 5.8 thou/uL (1.40-6.50); %Basophils 0.6 % (0.0-1.0); %Eosinophils 2.5 % (0.0-10.0); %Lymphocytes 19.6 % (21.0-51.0); %Monocytes 9.7 % (0.0-10.0); %Neutrophils 67.6 % (42.0-75.0); Hemoglobin 16.5 g/dL (14.0-18.0); Mean Corpuscular Hemoglobin 29.7 pg (27.0-31.0); Mean Corpuscular Volume 87.4 fL (78.0-98.0); Mean Platelet Volume 7.2 fL (7.4-10.4); Platelet Count 275 thou/uL (130-400); RBC Distribution Width 12.5 % (11.5-14.5); Red Blood Cell (RBC) Count 5.54 mill/uL (4.70-6.10); White Blood Cell (WBC) Count 8.6 thou/uL (4.8-10.8)
[2019-06-07 05:20] LABS: Anion Gap 13 mmol/L (10-20); BUN (Urea Nitrogen) 22 mg/dL (8.9-20.6); Calc. Creatinine Clearance 106 mL/min (70-130); Calcium 8.7 mg/dL (7.8-10.44); Carbon Dioxide 26 mmol/L (22-29); Chloride 104 mmol/L (98-107); Estimated GFR-MDRD 33; Glucose 185 mg/dL (70-105); Potassium 3.7 mmol/L (3.5-5.1); Sodium 139 mmol/L (136-145)
[2019-06-07] MEDS: Aspirin Chewable 81 MG TAB PO SCH (08:12)
[2019-06-07] MEDS: Famotidine 20 MG TAB PO SCH ×2 (08:12→20:51)
[2019-06-07] MEDS: Gabapentin 300 MG CAP PO SCH ×3 (08:13→20:51)
[2019-06-07] MEDS: NIFEdipine XL 60 MG TAB PO SCH (08:13)
[2019-06-07] MEDS: Labetalol 100 MG TAB PO SCH ×2 (08:13→20:51)
--- NOTE | 2019-06-07 10:55 | NM ---
NM Cardiac Stress W EF WF HISTORY: Chest pain hypertension and diabetes. COMPARISON: None. FINDINGS: Examination is performed using 29.7 mCi of 90 9M technetium sestamibi on the stress and 10 mCi on the resting images. This shows a normal distribution of radiopharmaceutical without signs of ischemia or scar. Wall motion: There is a generalized hypokinesis. Left ventricular ejection fraction: The calculated left ventricular ejection fraction was 44%. IMPRESSION: 1. No evidence of ischemia. 2. Diminished left ventricular ejection fraction 44%, correlate with echocardiogram.
[2019-06-07] MEDS ORDERED: Sodium Chloride 0.9% 500 ML IV SCH (12:45)
[2019-06-07] MEDS ORDERED: Regadenoson 0.4 MG/5 ML SYRINGE ONE (12:50)
--- NOTE | 2019-06-07 12:58 | PRG ---
DATE OF SERVICE: 06/07/2019 SUBJECTIVE: Mr. Gates developed severe pain in the right first metacarpophalangeal joint of his right foot. It is read, extremely tender, looks like gout. No chest pain or pressure. PHYSICAL EXAMINATION: GENERAL: On examination, his blood pressure is 199/92, pulse is 80. LUNGS: Clear. CARDIAC: Normal S1 and normal S2. ABDOMEN: Soft, nontender. EXTREMITIES: No edema. IMAGING STUDIES: Stress test revealed depressed left ventricular function with an ejection fraction of 44%. There is no definite ischemia. ASSESSMENT: 1. Hypertension, it is very difficult to control. 2. Morbid obesity. 3. Throat tightness, possibly related to blood pressure, but also could be ischemic heart disease. 4. Episode of gout. PLAN: 1. Give him a dose of colchicine. 2. I recommend he undergo cardiac catheterization to risk stratify to see whether he has coronary artery disease. If he does not, he would be good candidate in my opinion for gastric sleeve. We will go ahead and give him some fluid as his creatinine actually went up to 2.2 with a diuresis. I certainly want to stabilize his kidney function prior to cardiac catheterization. Job ID: [id number]
[2019-06-07] MEDS ORDERED: Colchicine 0.6 MG TAB PO SCH ×3 (14:00→16:00)
[2019-06-07] MEDS: hydrALAZINE 25 MG TAB PO SCH ×2 (14:03→20:53)
[2019-06-07] MEDS: Sodium Chloride 0.9% 1,000 ML IV SCH (14:36)
--- NOTE | 2019-06-07 14:49 | PRG ---
DATE OF SERVICE: 06/07/2019 SUBJECTIVE: A 44-year-old gentleman, being seen for acute kidney injury. The patient denied nausea or chest pain. OBJECTIVE: See above. Awake, alert, in no acute distress. VITAL SIGNS: Pulse 77, breathing 16, blood pressure 148/86. GENERAL APPEARANCE AND MENTAL STATUS: Fair. HEAD/NECK: Normocephalic. Atraumatic. EYES: EOMI. No deformity. EARS: Clear. No ulcers. NOSE: Intact. No lesions. MOUTH: Clear. No discharge. THROAT: Clear. No exudate. LUNGS: Clear. No crackles. CARDIAC: S1, S2. No rub. ABDOMEN: Benign. Bowel sounds positive. GENITALIA/RECTUM: Muñoz absent. BACK/EXTREMITIES: Edema 0+. NEUROLOGICAL: Alert and motor intact. SKIN: LYMPHATICS: LABORATORY AND DIAGNOSTIC DATA: Labs show creatinine 2.2. ASSESSMENT AND PLAN: 1. Acute kidney injury with chronic kidney disease most likely due to cardiorenal syndrome and progressive diabetes mellitus. 2. Congestive heart failure, use Lasix as needed. 3. Hypertension, stable. 4. Anemia, stable. No indication for dialysis. We will follow renal function closely. Job ID: [id number]
[2019-06-07] MEDS: Simvastatin 5 MG TAB PO SCH (20:51)
[2019-06-08] MEDS: Sodium Chloride 0.9% 1,000 ML IV SCH ×2 (04:14→15:59)
[2019-06-08 05:32] LABS: Anion Gap 12 mmol/L (10-20); BUN (Urea Nitrogen) 24 mg/dL (8.9-20.6); Calc. Creatinine Clearance 103 mL/min (70-130); Calcium 8.4 mg/dL (7.8-10.44); Carbon Dioxide 24 mmol/L (22-29); Chloride 108 mmol/L (98-107); Estimated GFR-MDRD 33; Glucose 178 mg/dL (70-105); Potassium 3.9 mmol/L (3.5-5.1); Sodium 140 mmol/L (136-145)
[2019-06-08] MEDS: Famotidine 20 MG TAB PO SCH ×2 (09:19→20:23)
[2019-06-08] MEDS: NIFEdipine XL 60 MG TAB PO SCH (09:19)
[2019-06-08] MEDS: Gabapentin 300 MG CAP PO SCH ×3 (09:20→20:22)
[2019-06-08] MEDS: hydrALAZINE 25 MG TAB PO SCH ×3 (09:20→20:22)
[2019-06-08] MEDS: Aspirin Chewable 81 MG TAB PO SCH (09:20)
[2019-06-08] MEDS: Labetalol 100 MG TAB PO SCH ×2 (09:20→20:23)
[2019-06-08] MEDS: HumaLOG 300 UNITS/3 ML VIAL SC PRN (11:57)
--- NOTE | 2019-06-08 14:24 | PDOC.HOSPP ---
- Subjective Encounter Date: 06/08/19 Encounter Time: 10:45 Subjective: no chest pain or palp or sob is sitting in chair, at bedside - Objective Vital Signs & Weight: Vital Signs (12 hours) Temp Pulse Pulse Pulse Resp BP BP 06/08/19 11:33 97.5 F L 78 20 06/08/19 10:49 85 181/88 H 06/08/19 09:25 83 95 185/93 H 181/88 H 06/08/19 09:20 84 06/08/19 09:19 84 06/08/19 07:44 97.8 F 84 12 06/08/19 05:53 85 06/08/19 05:51 06/08/19 05:47 98.1 F 85 16 BP BP BP BP Pulse Ox 06/08/19 11:33 146/71 H 95 06/08/19 10:49 06/08/19 09:25 06/08/19 09:20 06/08/19 09:19 06/08/19 07:44 192/86 H 180/74 H 198/88 H 96 06/08/19 05:53 06/08/19 05:51 185/86 H 06/08/19 05:47 184/86 H 92 L Weight Weight 365 lb 3.2 oz I&O: 06/07/19 06/08/19 06/09/19 06:59 06:59 06:59 Intake Total 2400 1612 Output Total 4500 1650 700 Balance -2100 -38 -700 Result Diagrams: 06/07/19 04:32 06/08/19 04:51 Additional Labs: Accuchecks 06/08/19 06/08/19 06/07/19 10:35 05:28 20:56 POC Glucose 181 H 160 H 146 H 06/07/19 17:26 POC Glucose 143 H Hospitalist ROS - Medication Medications: Active Medications Generic Name Dose Route Start Last Admin Trade Name Freq PRN Reason Stop Dose Admin Aspirin 81 mg 06/06/19 09:00 06/08/19 09:20 Aspirin Chewable PO 81 mg DAILY TYRONE Administration Famotidine 20 mg 06/07/19 09:00 06/08/19 09:19 Pepcid PO 20 mg BID TYRONE Administration Gabapentin 600 mg 06/05/19 21:00 06/08/19 09:20 Neurontin PO 600 mg TID TYRONE Administration Hydralazine HCl 10 mg 06/05/19 22:40 06/08/19 05:53 Apresoline SLOW IVP 10 mg Q4H PRN Administration SBP Greater Than 180 Hydralazine HCl 25 mg 06/07/19 15:00 06/08/19 09:20 Apresoline PO 25 mg TID TYRONE Administration Sodium Chloride 1,000 mls @ 75 mls/hr 06/07/19 13:00 06/08/19 04:14 Normal Saline 0.9% IV 1,000 mls .[id number] TYRONE Administration Insulin Human Lispro 0 units 06/05/19 18:14 06/08/19 11:57 Humalog SC 2 unit .MODERATE SLIDING SC PRN Administration Moderate Correctional Scale Labetalol HCl 150 mg 06/05/19 21:00 06/08/19 09:20 Normodyne PO 150 mg BID TYRONE Administration Nifedipine 120 mg 06/06/19 09:00 06/08/19 09:19 Procardia Xl PO 120 mg DAILY TYRONE Administration Simvastatin 10 mg 06/05/19 21:00 06/07/19 20:51 Zocor PO 10 mg HS TYRONE Administration - Exam General Appearance: NAD, awake alert Eye: PERRL, anicteric sclera ENT: no oropharyngeal lesions, moist mucosa Neck: supple, no JVD Heart: RRR, no murmur Respiratory: no wheezes, no rales Gastrointestinal: soft, non-tender, non-distended, normal bowel sounds Extremities: no cyanosis, no edema Neurological: cranial nerve grossly intact, no focal deficits Psychiatric: normal affect, A&O x 3 Hosp A/P (1) Chest pain Code(s): R07.9 - CHEST PAIN, UNSPECIFIED Status: Acute (2) [place] (acute kidney injury) Code(s): N17.9 - ACUTE KIDNEY FAILURE, UNSPECIFIED Status: Resolved (3) Morbid obesity with BMI of 45.0-49.9, adult Code(s): E66.01 - MORBID (SEVERE) OBESITY DUE TO EXCESS CALORIES; Z68.42 - BODY MASS INDEX (BMI) 45.0-49.9, ADULT Status: Chronic (4) CKD (chronic kidney disease), stage III Code(s): N18.3 - CHRONIC KIDNEY DISEASE, STAGE 3 (MODERATE) Status: Chronic (5) DM type 2 (diabetes mellitus, type 2) Status: Chronic Qualifiers: Diabetes mellitus penitentiary insulin use: with penitentiary use Diabetes mellitus complication status: with kidney complications Diabetes mellitus complication detail: with chronic kidney disease Chronic kidney disease stage : stage 3 (moderate) Qualified Code(s): E11.22 - Type 2 diabetes mellitus with diabetic chronic kidney disease; N18.3 - Chronic kidney disease, stage 3 ( moderate); Z79.4 - pulp grinder (current) use of insulin (6) HTN (hypertension) Code(s): I10 - ESSENTIAL (PRIMARY) HYPERTENSION Status: Chronic Qualifiers: - Plan stress test is -ve for ischemia but showed low ef of 44% echo showed normal ef for cath in am, d/w . continue iv hydration hemostable continue home meds as above creatinine 2.1 to ambulate in hallway as tolerated
--- NOTE | 2019-06-08 16:10 | PRG ---
DATE OF SERVICE: SUBJECTIVE: Patient was seen and examined at bedside and overnight events noted. Patient denies any shortness of breath or chest pain or palpitation. No history of nausea or vomiting or diarrhea or fever or chills or cramps. OBJECTIVE: GENERAL: This is an obese male, in no apparent distress. VITAL SIGNS: Temperature 99. Heart rate 83. Respiratory rate 20. Blood pressure 144/88. HEENT: Atraumatic, normocephalic. Oral mucosa is moist NECK: Supple. CARDIOVASCULAR: S1, S2 heard. Rate and rhythm regular. RESPIRATORY: Clear to auscultation. GASTROINTESTINAL: Abdomen is soft. MUSCULOSKELETAL: No tenderness. No edema. DERMATOLOGIC: No skin rash. NEUROLOGIC: Alert and awake and oriented X3. No focal neurologic deficits. Moving all the extremities. PSYCHIATRIC: Mood and affect normal. LABORATORY DATA: Potassium is 3.9, BUN is 24, and creatinine is 2.1. ASSESSMENT AND PLAN: 1. Acute kidney injury on chronic kidney, stage 3, stable. 2. Obesity. 3. Cardiorenal syndrome. 4. Hypertension. 5. Anemia of chronic disease. Overall labs are stable. We will monitor. Avoid nephrotoxins. Job ID: [id number]
[2019-06-08] MEDS ORDERED: Communication Order-Pharmacy FS SCH (16:30)
[2019-06-08] MEDS: Simvastatin 5 MG TAB PO SCH (20:22)
[2019-06-09] MEDS: Gabapentin 300 MG CAP PO SCH ×3 (05:07→21:06)
[2019-06-09] MEDS: NIFEdipine XL 60 MG TAB PO SCH (05:08)
[2019-06-09] MEDS: Labetalol 100 MG TAB PO SCH ×2 (05:08→21:05)
[2019-06-09] MEDS: Aspirin Chewable 81 MG TAB PO SCH (05:08)
[2019-06-09] MEDS: Famotidine 20 MG TAB PO SCH ×2 (05:09→21:06)
[2019-06-09] MEDS: hydrALAZINE 25 MG TAB PO SCH ×3 (05:09→21:06)
[2019-06-09] MEDS: Sodium Chloride 0.9% 1,000 ML IV SCH (05:09)
[2019-06-09 05:50] LABS: Anion Gap 11 mmol/L (10-20); BUN (Urea Nitrogen) 21 mg/dL (8.9-20.6); Calc. Creatinine Clearance 117 mL/min (70-130); Calcium 8.4 mg/dL (7.8-10.44); Carbon Dioxide 24 mmol/L (22-29); Chloride 108 mmol/L (98-107); Estimated GFR-MDRD 39; Glucose 200 mg/dL (70-105); Potassium 3.6 mmol/L (3.5-5.1); Sodium 139 mmol/L (136-145)
[2019-06-09] MEDS ORDERED: Diazepam 5 MG TAB PO SCH (06:00)
[2019-06-09] MEDS ORDERED: Heparin (Artline) 1,000 ML ONE (06:44)
[2019-06-09] MEDS ORDERED: Verapamil 5 MG/2 ML VIAL ONE (07:32)
[2019-06-09] MEDS ORDERED: Heparin 10,000 UNITS/1 ML VIAL ONE (07:32)
[2019-06-09] MEDS ORDERED: Nitroglycerin 100MG/250ML BOT 250 ML ONE (07:32)
[2019-06-09] MEDS ORDERED: Fentanyl 100 MCG/2 ML VIAL ONE (07:44)
[2019-06-09] MEDS ORDERED: Midazolam HCl 2 mg/2 ml Vial ONE (07:45)
[2019-06-09] MEDS ORDERED: Ondansetron PF 4 MG/2 ML Vial ONE (08:08)
--- NOTE | 2019-06-09 09:31 | PRG ---
DATE OF SERVICE: 06/09/2019 SUBJECTIVE: Patient was seen and examined at bedside and overnight events noted. Patient denies any shortness of breath or chest pain or palpitation. No history of nausea or vomiting or diarrhea or fever or chills or cramps. OBJECTIVE: GENERAL: This is an obese male, in no apparent distress. VITAL SIGNS: pulse 81, respirations blood pressure 170/80. HEENT: Atraumatic, normocephalic. Oral mucosa is moist NECK: Supple. CARDIOVASCULAR: S1, S2 heard. Rate and rhythm regular. RESPIRATORY: Clear to auscultation. GASTROINTESTINAL: Abdomen is soft. MUSCULOSKELETAL: No tenderness. No edema. DERMATOLOGIC: No skin rash. NEUROLOGIC: Alert and awake and oriented X3. No focal neurologic deficits. Moving all the extremities. PSYCHIATRIC: Mood and affect normal. LABORATORY DATA: Potassium 3.6, BUN is 21, creatinine is 1.9. ASSESSMENT AND PLAN: 1. Acute kidney injury on chronic kidney disease stage 3. Renal function is stable, status post heart catheterization. We will monitor renal function 24 to 48 hours after contrast exposure. 2. Obesity. 3. Cardiorenal syndrome. Follow with Cardiology. 4. Hypertension. 5. Anemia. 6. Edema controlled. 7. Plan is to monitor renal function 24 to 48 hours after contrast exposure. Job ID: [id number]
[2019-06-09] MEDS ORDERED: Iopamidol 370 76% 100 ML VIAL ONE (10:45)
--- NOTE | 2019-06-09 15:13 | PDOC.HOSPP ---
- Subjective Encounter Date: 06/09/19 Encounter Time: 11:45 Subjective: had cath this am, no sob or pain at bedside - Objective Vital Signs & Weight: Vital Signs (12 hours) Temp Pulse Resp BP BP Pulse Ox 06/09/19 10:40 81 18 183/90 H 97 06/09/19 08:23 97.4 F L 81 16 94 L 06/09/19 05:09 86 06/09/19 05:08 86 06/09/19 05:07 98.5 F 86 18 174/82 H 94 L Weight Weight 365 lb 3.2 oz I&O: 06/08/19 06/09/19 06/10/19 06:59 06:59 06:59 Intake Total 1612 Output Total 1650 2150 Balance -38 -2150 Result Diagrams: 06/07/19 04:32 06/09/19 04:57 Additional Labs: Accuchecks 06/09/19 06/08/19 06/08/19 10:35 20:39 17:09 POC Glucose 195 H 158 H 159 H Hospitalist ROS - Medication Medications: Active Medications Generic Name Dose Route Start Last Admin Trade Name Freq PRN Reason Stop Dose Admin Aspirin 81 mg 06/06/19 09:00 06/09/19 05:08 Aspirin Chewable PO 81 mg DAILY TYRONE Administration Famotidine 20 mg 06/07/19 09:00 06/09/19 05:09 Pepcid PO 20 mg BID TYRONE Administration Gabapentin 600 mg 06/05/19 21:00 06/09/19 05:07 Neurontin PO 600 mg TID TYRONE Administration Hydralazine HCl 10 mg 06/05/19 22:40 06/08/19 05:53 Apresoline SLOW IVP 10 mg Q4H PRN Administration SBP Greater Than 180 Hydralazine HCl 25 mg 06/07/19 15:00 06/09/19 05:09 Apresoline PO 25 mg TID TYRONE Administration Sodium Chloride 1,000 mls @ 75 mls/hr 06/07/19 13:00 06/09/19 05:09 Normal Saline 0.9% IV 1,000 mls .[id number] TYRONE Administration Insulin Human Lispro 0 units 06/05/19 18:14 06/08/19 11:57 Humalog SC 2 unit .MODERATE SLIDING SC PRN Administration Moderate Correctional Scale Labetalol HCl 150 mg 06/05/19 21:00 06/09/19 05:08 Normodyne PO 150 mg BID TYRONE Administration Nifedipine 120 mg 06/06/19 09:00 06/09/19 05:08 Procardia Xl PO 120 mg DAILY TYRONE Administration - Exam General Appearance: awake alert Eye: PERRL, anicteric sclera ENT: no oropharyngeal lesions, moist mucosa Neck: supple, no JVD Heart: RRR, no murmur Respiratory: no wheezes, no rales Gastrointestinal: soft, non-tender, non-distended, normal bowel sounds Extremities: no cyanosis, no edema Neurological: cranial nerve grossly intact, no focal deficits Psychiatric: normal affect, A&O x 3 Hosp A/P (1) CAD (coronary artery disease) Code(s): I25.10 - ATHSCL HEART DISEASE OF [place] CORONARY ARTERY W/O ANG PCTRS Status: Acute Qualifiers: Coronary Disease-Associated Artery/Lesion type: [place] artery [place] vs. transplanted heart: [place] heart Associated angina: with stable angina Qualified Code(s): I25.118 - Atherosclerotic heart disease of [place] coronary artery with other forms of angina pectoris (2) Chest pain Code(s): R07.9 - CHEST PAIN, UNSPECIFIED Status: Acute (3) [place] (acute kidney injury) Code(s): N17.9 - ACUTE KIDNEY FAILURE, UNSPECIFIED Status: Resolved (4) Morbid obesity with BMI of 45.0-49.9, adult Code(s): E66.01 - MORBID (SEVERE) OBESITY DUE TO EXCESS CALORIES; Z68.42 - BODY MASS INDEX (BMI) 45.0-49.9, ADULT Status: Chronic (5) CKD (chronic kidney disease), stage III Code(s): N18.3 - CHRONIC KIDNEY DISEASE, STAGE 3 (MODERATE) Status: Chronic (6) DM type 2 (diabetes mellitus, type 2) Status: Chronic Qualifiers: Diabetes mellitus meterman insulin use: with meterman use Diabetes mellitus complication status: with kidney complications Diabetes mellitus complication detail: with chronic kidney disease Chronic kidney disease stage : stage 3 (moderate) Qualified Code(s): E11.22 - Type 2 diabetes mellitus with diabetic chronic kidney disease; N18.3 - Chronic kidney disease, stage 3 ( moderate); Z79.4 - jail (current) use of insulin (7) HTN (hypertension) Code(s): I10 - ESSENTIAL (PRIMARY) HYPERTENSION Status: Chronic Qualifiers: - Plan cath done this am shows severe 3 vessel disease for med mgmt and then cabg stress test is -ve for ischemia but showed low ef of 44% echo showed normal ef continue iv hydration hemostable continue home meds as above renal art usg last month showed mild increase in right renal art resistive indices to ambulate in hallway as tolerated dc plan per cardio adv dc zocor low dose add crestor 40mg.
--- NOTE | 2019-06-09 19:34 | PRG ---
DATE OF SERVICE: 06/09/2019 Mr. Gates underwent cardiac catheterization today, revealed that he had a calcified 70% LAD lesion, 60% circumflex lesion, 90% posterior descending artery stenosis. We discussed the options including bypass surgery. Obviously, he would be at increased risk of complications due to his weight. He is considering his options. In the meantime, we will reduce the Procardia XL and increase hydralazine. I think the Procardia XL is causing a lot of his edema. I think the really good option would be for if he could lose quite a bit of weight, then proceed to bypass surgery, but he said he has been having a lot of trouble in getting weight loss. We will re-discuss options tomorrow. Job ID: [id number]
[2019-06-09] MEDS ORDERED: Rosuvastatin 20 MG TAB PO SCH (21:00)
[2019-06-10 05:48] LABS: Cardiac Risk 3.9 (Less than 4.5)
[2019-06-10] MEDS: HumaLOG 300 UNITS/3 ML VIAL SC PRN ×2 (06:24→12:06)
[2019-06-10 08:39] LABS: Anion Gap 14 mmol/L (10-20); BUN (Urea Nitrogen) 19 mg/dL (8.9-20.6); Calc. Creatinine Clearance 114 mL/min (70-130); Calcium 8.3 mg/dL (7.8-10.44); Carbon Dioxide 19 mmol/L (22-29); Chloride 108 mmol/L (98-107); Estimated GFR-MDRD 38; Glucose 191 mg/dL (70-105); Potassium 4.2 mmol/L (3.5-5.1); Sodium 137 mmol/L (136-145)
[2019-06-10] MEDS ORDERED: Ezetimibe 10 MG TAB PO SCH (09:00)
[2019-06-10] MEDS ORDERED: Fenofibrate 48 MG TAB PO SCH (09:00)
[2019-06-10] MEDS ORDERED: NIFEdipine XL 90 MG TAB PO SCH (09:00)
[2019-06-10] MEDS ORDERED: Carvedilol 25 MG TAB PO SCH ×2 (09:15→17:00)
--- NOTE | 2019-06-10 09:43 | PRG ---
DATE OF SERVICE: 06/10/2019 SUBJECTIVE: Mr. Gates is doing okay, but still severely hypertensive. No chest pain or pressure. OBJECTIVE: VITAL SIGNS: Blood pressure 180/90, pulse 80. LUNGS: Clear. CARDIAC: Normal S1, normal S2. ABDOMEN: Obese. EXTREMITIES: Moderate edema. ASSESSMENT: 1. Coronary artery disease, 3-vessel disease with what appears to be a long calcified severe stenosis in the left anterior descending artery. I reviewed the films and I get to at least 80% proximal. 2. Morbid obesity. 3. Renal insufficiency. 4. Longstanding diabetes. 5. Mixed hyperlipidemia. 6. Hypertension, still poorly controlled. PLAN: 1. Change from labetalol to carvedilol. 2. Try to reduce Procardia XL in view of the severe edema. 3. He is on hydralazine. 4. Ultimately, I think his best option is bypass surgery, told him that he needs to try to lose weight, to try to condition himself as good as possible, to try to be in the best possible shape for bypass surgery. I have consulted Dr. Dumont about potential outpatient bypass surgery. Job ID: [id number]
[2019-06-10] MEDS: Aspirin Chewable 81 MG TAB PO SCH (09:50)
[2019-06-10] MEDS: hydrALAZINE 25 MG TAB PO SCH ×2 (09:50→14:41)
[2019-06-10] MEDS: Gabapentin 300 MG CAP PO SCH ×2 (09:50→14:41)
[2019-06-10] MEDS: Famotidine 20 MG TAB PO SCH (09:51)
[2019-06-10] MEDS: Labetalol 100 MG TAB PO SCH (09:57)
--- NOTE | 2019-06-10 10:53 | PRG ---
DATE OF SERVICE: 06/10/2019 SUBJECTIVE: Patient was seen and examined at bedside and overnight events noted. Patient denies any shortness of breath or chest pain or palpitation. No history of nausea or vomiting or diarrhea or fever or chills or cramps. OBJECTIVE: GENERAL: This is a morbidly obese male, in no apparent distress. VITAL SIGNS: Temperature 97.7. Heart rate 82. Respiratory rate 16. Blood pressure 184/91. HEENT: Atraumatic, normocephalic. Oral mucosa is moist NECK: Supple. CARDIOVASCULAR: S1, S2 heard. Rate and rhythm regular. RESPIRATORY: Clear to auscultation. GASTROINTESTINAL: Abdomen is soft. MUSCULOSKELETAL: No tenderness. No edema. DERMATOLOGIC: No skin rash. NEUROLOGIC: Alert and awake and oriented X3. No focal neurologic deficits. Moving all the extremities. PSYCHIATRIC: Mood and affect normal. LABORATORY DATA: Potassium is 4.2, BUN is 19, creatinine is 1.9. ASSESSMENT AND PLAN: 1. Acute kidney injury on chronic kidney disease, stage 3 with stable creatinine. 2. Obesity. 3. Hypertension. 4. Anemia. 5. Edema. 6. Recent contrast exposure. Follow up with Nephrology in 1 week if he is going home. Continue to closely monitor renal function as outpatient. It seems to be stable today. Job ID: [id number]
--- NOTE | 2019-06-10 12:53 | PDOC.HOSPP ---
- Subjective Encounter Date: 06/10/19 Encounter Time: 10:45 Subjective: no chest pain or palp or sob at bedside - Objective Vital Signs & Weight: Vital Signs (12 hours) Temp Pulse Resp BP BP Pulse Ox 06/10/19 11:58 98.2 F 80 14 147/74 H 93 L 06/10/19 09:57 82 06/10/19 09:50 98 06/10/19 08:00 97.7 F 82 16 184/91 H 96 06/10/19 04:58 97.7 F 85 18 176/81 H 93 L Weight Weight 365 lb 3.2 oz I&O: 06/09/19 06/10/19 06/11/19 06:59 06:59 06:59 Intake Total 1780 Output Total 2150 1600 Balance -2150 180 Result Diagrams: 06/07/19 04:32 06/10/19 05:06 Additional Labs: Accuchecks 06/10/19 06/10/19 06/09/19 10:38 05:07 21:07 POC Glucose 199 H 173 H 154 H 06/09/19 17:08 POC Glucose 172 H Hospitalist ROS - Medication Medications: Active Medications Generic Name Dose Route Start Last Admin Trade Name Freq PRN Reason Stop Dose Admin Aspirin 81 mg 06/06/19 09:00 06/10/19 09:50 Aspirin Chewable PO 81 mg DAILY TYRONE Administration Ezetimibe 10 mg 06/10/19 09:00 06/10/19 09:50 Zetia PO 10 mg DAILY TYRONE Administration Famotidine 20 mg 06/07/19 09:00 06/10/19 09:51 Pepcid PO 20 mg BID TYRONE Administration Fenofibrate 48 mg 06/10/19 09:00 06/10/19 09:51 Tricor PO 48 mg DAILY TYRONE Administration Gabapentin 600 mg 06/05/19 21:00 06/10/19 09:50 Neurontin PO 600 mg TID TYRONE Administration Hydralazine HCl 10 mg 06/05/19 22:40 06/08/19 05:53 Apresoline SLOW IVP 10 mg Q4H PRN Administration SBP Greater Than 180 Hydralazine HCl 50 mg 06/09/19 21:00 06/10/19 09:50 Apresoline PO 50 mg TID TYRONE Administration Insulin Human Lispro 0 units 06/05/19 18:14 06/10/19 12:06 Humalog SC 2 unit .MODERATE SLIDING SC PRN Administration Moderate Correctional Scale Nifedipine 90 mg 06/10/19 09:00 06/10/19 09:51 Procardia Xl PO 90 mg DAILY TYRONE Administration Rosuvastatin Calcium 40 mg 06/09/19 21:00 06/09/19 21:06 Crestor PO 40 mg HS TYRONE Administration - Exam General Appearance: awake alert Eye: PERRL, anicteric sclera ENT: no oropharyngeal lesions, moist mucosa Neck: supple, no JVD Heart: RRR, no murmur Respiratory: no wheezes, no rales Gastrointestinal: soft, non-tender, non-distended, normal bowel sounds Extremities: no cyanosis, 1+ LE edema Neurological: cranial nerve grossly intact, no focal deficits Psychiatric: normal affect, A&O x 3 Hosp A/P (1) CAD (coronary artery disease) Code(s): I25.10 - ATHSCL HEART DISEASE OF [place] CORONARY ARTERY W/O ANG PCTRS Status: Acute Qualifiers: Coronary Disease-Associated Artery/Lesion type: [place] artery [place] vs. transplanted heart: [place] heart Associated angina: with stable angina Qualified Code(s): I25.118 - Atherosclerotic heart disease of [place] coronary artery with other forms of angina pectoris (2) Chest pain Code(s): R07.9 - CHEST PAIN, UNSPECIFIED Status: Acute (3) [place] (acute kidney injury) Code(s): N17.9 - ACUTE KIDNEY FAILURE, UNSPECIFIED Status: Resolved (4) Morbid obesity with BMI of 45.0-49.9, adult Code(s): E66.01 - MORBID (SEVERE) OBESITY DUE TO EXCESS CALORIES; Z68.42 - BODY MASS INDEX (BMI) 45.0-49.9, ADULT Status: Chronic (5) CKD (chronic kidney disease), stage III Code(s): N18.3 - CHRONIC KIDNEY DISEASE, STAGE 3 (MODERATE) Status: Chronic (6) DM type 2 (diabetes mellitus, type 2) Status: Chronic Qualifiers: Diabetes mellitus termite treater helper insulin use: with termite treater helper use Diabetes mellitus complication status: with kidney complications Diabetes mellitus complication detail: with chronic kidney disease Chronic kidney disease stage : stage 3 (moderate) Qualified Code(s): E11.22 - Type 2 diabetes mellitus with diabetic chronic kidney disease; N18.3 - Chronic kidney disease, stage 3 ( moderate); Z79.4 - tank terminal gauger (current) use of insulin (7) HTN (hypertension) Code(s): I10 - ESSENTIAL (PRIMARY) HYPERTENSION Status: Chronic Qualifiers: - Plan cath done 06/09/2019 showed severe 3 vessel disease for med mgmt and then cabg after some weight loss per cardiology stress test is -ve for ischemia but showed low ef of 44% echo showed normal ef hemostable renal art usg last month showed mild increase in right renal art resistive indices to ambulate in hallway as tolerated dc plan per cardio adv is on coreg, hydralazine, procardia xl, zetia, tricor and crestor 40mg.
[2019-06-10 15:25] VITALS: BP 177/86; TEMP 97.3
--- NOTE | 2019-06-10 17:00 | DIS ---
DATE OF ADMISSION: 06/05/2019 DATE OF DISCHARGE: 06/10/2019 DISCHARGE DISPOSITION: To home. PRIMARY DISCHARGE DIAGNOSES: Acute kidney injury on top of chronic kidney disease, stage 3-4; hypertensive urgency on arrival; coronary artery disease with three vessel disease for likely coronary artery bypass graft in the coming weeks; morbid obesity; diabetes mellitus type 2. PROCEDURES DONE DURING HOSPITALIZATION: Echo with 2D Doppler done showed EF of 50% to 55%. Technically, this was a suboptimal study due to obesity. Nuclear stress test done showed no evidence of ischemia. There was diminished LV ejection fraction of 44%. Cardiac catheterization done on 06/09/2019 showed severe proximal LAD disease, severe proximal RPDA, and moderate distal left circumflex disease/stenosis. Ultrasound venous Doppler of lower extremities done showed no evidence of DVT. H and H, 16 and 48 and platelet count 275. Discharge BUN and creatinine are 19 and 1.9. Total cholesterol 140, triglycerides 315, LDL 41, HDL 36. Vitamin B12 912, folic acid 13.4, TSH 0.92. BNP 33. Initial BUN and creatinine 23 and 2.2. DISCHARGE MEDICATIONS: 1. Aspirin 81 mg p.o. daily. 2. Jardiance 10 mg daily. 3. Gabapentin 600 mg p.o. three times daily. 4. NovoLog 3 times daily before meals. 5. Lantus 45 units subcu daily. 6. Coreg 25 mg twice daily. 7. Vitamin D2 50,000 units once weekly. 8. Zetia 10 mg daily. 9. Tricor 48 mg daily. 10. Hydralazine 50 mg three times daily. 11. Procardia XL 90 mg daily. 12. Crestor 40 mg p.o. nightly. ALLERGIES: TO MORPHINE. INPATIENT CONSULTATIONS: 1. Dr. Yepez for Cardiology. 2. Dr. Grijalva/Juana for Nephrology. DISCHARGE PLAN: The patient to follow up with Dr. Yepez in 1 week. He needs to follow up with Dr. Dumont for Cardiothoracic surgery in 2 to 3 weeks, primary care physician, Dr. See Barrera in 1 week. BRIEF COURSE DURING HOSPITALIZATION: The patient initially came to ER with complaints of shortness of breath and chest pain. The patient was found to have had hypertensive urgency with acute kidney injury on top of chronic kidney disease stage 3. His hypertension was gently titrated down. In view of the patient's multiple risk factors, he has had Cardiology consultation with Dr. Yepez. The patient's renal function was holding up. He has had a nuclear stress test done, which showed no reversible ischemia, but ejection fraction was low. In view of multiple risk factors, the patient was taken for cardiac catheterization. He was found to have had severe three-vessel disease. The patient weighs nearly 365 pounds with BMI of 46. To avoid unnecessary risk factors, the patient has been advised to reduce weight prior to attempting to revascularize with CABG. He will follow up with Dr. Dumont in 2 to 3 weeks. His medications were optimized. He is hemodynamically stable, ambulating and eating well prior to discharge. He is cleared for discharge by Dr. Yepez. Please see a [id number] documentation for the day of discharge on [employer]. Job ID: [id number]
--- NOTE | 2019-06-11 01:22 | PQF ---
[employer] Win[employer] Viewer GISELLE QUICK JR, VINAYA KUMAR MD [id number] [address] [place] [address] [id number] CLINICAL DOCUMENTATION CLARIFICATION FORM: POST DISCHARGE Addendum to original discharge summary date: ____ Late entry note date: __ DATE: 06/10/19 ATTN: Rex Juarez Please exercise your independent, professional judgment in responding to the clarification form. Clinical indicators are provided on the bottom of this form for your review Can you please further clarify if Acute Tubular Necrosis is ruled in or ruled out? Acute tubular necrosis [ ] Ruled in diagnosis [ ] Continue to treat [ ] Resolved [ ] Ruled out diagnosis [ ] Cannot rule out diagnosis [ x ] Other diagnosis _please ask , as far as I know he had joan on top of his ckd [ ] Unable to determine In addition, please specify: Present on Admission (POA): [ ] Yes [ ] No [ ] Unable to determine For continuity of documentation, please document condition throughout progress notes and discharge summary. Thank You. CLINICAL INDICATORS - SIGNS / SYMPTOMS / LABS DS pg.1- acute kidney injury on top of chronic kidney disease stage 3-4 H and P pg.1- BUN 13, Creatinine 2.23, GFR [address] Grijalva pg.2- acute kidney injury with chronic kidney disease most likely due to cardiorenal PN 12 Dr. Grijalva pg.1- Acute Tubular Necrosis. Improved RISK FACTORS Hypertensive urgency- DS pg.1 DS type 2- DS pg.1 Hypertension- H and P pg.2 Hyperlipidemia- H and P pg.3 CHF- PN 12 TREATMENTS Nephro Consult- Dr. Grijalva IV fluids- MAR Creatinine Monitoring- Laboratory (This form is maintained as a part of the permanent medical record) 2014 [employer]. All Rights Reserved [email or web address] [not provided] LEXI
[2019-06-12] MEDS ORDERED: Ergocalciferol 1.25 MG(50,000 UNITS) CAP PO SCH (09:00)
== END 2019-06-10 16:51 | disposition home or self-care (01) | DRG 287 ==
LOC: ERS 14:06 → OBSVTOIN 17:47 → 2SW 17:47
PROVIDERS: ADMIT Hospitalist; ATTEND Hospitalist
PROC: B2111ZZ Fluoroscopy of Multiple Coronary Arteries using Low Osmolar Contrast (ICD-10-PCS; principal; 2019-06-09)
DX: I25.110 Atherosclerotic heart disease of native coronary artery with unstable angina pectoris (principal); Z68.42 Body mass index [BMI] 45.0-49.9, adult; I13.0 Hypertensive heart and chronic kidney disease with heart failure and stage 1 through stage 4 chronic kidney disease, or unspecified chronic kidney disease; N17.9 Acute kidney failure, unspecified; N18.4 Chronic kidney disease, stage 4 (severe); E11.22 Type 2 diabetes mellitus with diabetic chronic kidney disease; E78.00 Pure hypercholesterolemia, unspecified; G24.01 Drug induced subacute dyskinesia; E66.01 Morbid (severe) obesity due to excess calories; I50.9 Heart failure, unspecified; M10.9 Gout, unspecified; D63.1 Anemia in chronic kidney disease; E78.2 Mixed hyperlipidemia; I16.0 Hypertensive urgency; Z87.891 Personal history of nicotine dependence; Z88.5 Allergy status to narcotic agent; Z79.899 Other long term (current) drug therapy; Z79.4 Long term (current) use of insulin
CPT/HCPCS: 36415; 36416; 71045; 78452; 80048; 80053; 80061; 82607; 82746; 83690; 83735; 83880; 84443; 84484; 84550; 85025; 85379; 90471; 90686; 90732; 93005; 93017; 93306; 93454; 93970; 96374; 99152; A9500; C1769; G0008; G0009; J0360; J1644; J1940; J2250; J2405; J2785; J3010; Q9967; S0028

== ENCOUNTER 2020-01-15 06:23 | Outpatient (CLI) | payer BC, OTHER ==
[2020-01-16 12:24] LABS: SARS-CoV-2 MS2 Positive; SARS-CoV-2 N Gene Negative; SARS-CoV-2 S Gene Negative; SARS-CoV-2 orf1ab Negative
== END 2020-01-15 06:24 | disposition home or self-care (01) ==
LOC: LABBT 06:23
PROVIDERS: ATTEND Thoracic Surgery (Cardiothoracic Vascular Surgery)
DX: Z01.812 Encounter for preprocedural laboratory examination (principal); Z11.59 Encounter for screening for other viral diseases; I25.10 Atherosclerotic heart disease of native coronary artery without angina pectoris
CPT/HCPCS: 87635; U0003

== ENCOUNTER 2020-01-15 12:30 | Inpatient (IN) | payer BC ==
[2020-01-15 16:07] LABS: #Basophils 0.1 thou/uL (0.0-0.2); #Eosinphils 0.1 thou/uL (0.0-0.7); #Lymphocytes 1.4 thou/uL (1.20-3.40); #Monocytes 0.5 thou/uL (0.11-0.59); #Neutrophils 4.4 thou/uL (1.40-6.50); %Basophils 0.9 % (0.0-1.0); %Eosinophils 1.9 % (0.0-10.0); %Monocytes 7.4 % (0.0-10.0); %Neutrophils 67.8 % (42.0-75.0); Hemoglobin 17.8 g/dL (14.0-18.0); Mean Corpuscular HGB CONC 33.5 g/dL (32.0-36.0); Mean Corpuscular Hemoglobin 29.2 pg (27.0-31.0); Mean Corpuscular Volume 87.4 fL (78.0-98.0); Mean Platelet Volume 8.2 fL (7.4-10.4); Platelet Count 253 thou/uL (130-400); RBC Distribution Width 11.9 % (11.5-14.5); Red Blood Cell (RBC) Count 6.08 mill/uL (4.70-6.10); White Blood Cell (WBC) Count 6.4 thou/uL (4.8-10.8)
[2020-01-15 16:25] LABS: Anion Gap 12 mmol/L (10-20); BUN (Urea Nitrogen) 22 mg/dL (8.9-20.6); Calc. Creatinine Clearance 0 mL/min (70-130); Calcium 8.5 mg/dL (7.8-10.44); Carbon Dioxide 24 mmol/L (22-29); Chloride 104 mmol/L (98-107); Estimated GFR-MDRD 39; Glucose 231 mg/dL (70-105); Potassium 4.4 mmol/L (3.5-5.1); Sodium 136 mmol/L (136-145)
[2020-01-20] MEDS ORDERED: Midazolam HCl 5 mg/5 ml Vial ONE (06:31)
[2020-01-20] MEDS ORDERED: Fentanyl 100 MCG/2 ML VIAL ONE (06:31)
[2020-01-20] MEDS ORDERED: Midazolam HCl 2 mg/2 ml Vial ONE (06:31)
[2020-01-20] MEDS ORDERED: Dexmedetomidine 200 MCG/2 ML VIAL ONE (06:31)
[2020-01-20] MEDS ORDERED: Vecuronium 10 MG VIAL ONE ×3 (06:31→11:09)
[2020-01-20] MEDS ORDERED: Albumin 5% 500 ML ONE (06:34)
[2020-01-20] MEDS ORDERED: Heparin 10,000 UNITS/1 ML VIAL 30,000 UNITS in Sodium Chloride 0.9% 1,000 ML FS SCH (07:00)
[2020-01-20] MEDS ORDERED: Insulin Regular 300 UNITS/3 ML VIAL ONE (08:12)
[2020-01-20] MEDS ORDERED: Potassium Chloride 60 MEQ/30 ML VIAL ONE (11:09)
[2020-01-20] MEDS ORDERED: Nitroglycerin 50 MG/250 ML BOT ONE (11:09)
[2020-01-20] MEDS ORDERED: Ondansetron PF 4 MG/2 ML Vial ONE (11:09)
[2020-01-20] MEDS ORDERED: Cardioplegic Soln 1,000 ML BAG ONE (11:09)
[2020-01-20] MEDS ORDERED: Sodium Bicarb 50 MEQ/50 ML Abboject 8.4% SYRINGE ONE (11:09)
[2020-01-20] MEDS ORDERED: Glycopyrrolate 0.2 MG/ML 5 ML SYRINGE ONE (11:09)
[2020-01-20] MEDS ORDERED: Aminocaproic Acid 5 GM/20 ML VIAL ONE (11:09)
[2020-01-20] MEDS ORDERED: Ketorolac Tromethamine 30 MG/ML VIAL ONE (11:09)
[2020-01-20] MEDS ORDERED: Heparin 5,000 UNITS/ML VIAL ONE (11:09)
[2020-01-20] MEDS ORDERED: PROPOFOL 200 MG/20 ML VIAL ONE (11:09)
[2020-01-20] MEDS ORDERED: Heparin 30,000 units/30 ml VIAL ONE (11:09)
[2020-01-20] MEDS ORDERED: Calcium Chloride 1 GM/10 ML Abboject SYRINGE ONE (11:09)
[2020-01-20] MEDS ORDERED: Magnesium Sulfate 1 GM/2 ML VIAL ONE (11:09)
[2020-01-20] MEDS ORDERED: Lidocaine 1% PF 5 ML VIAL ONE ×2 (11:09)
[2020-01-20] MEDS ORDERED: Dexamethasone 20 MG/5 ML VIAL ONE (11:09)
[2020-01-20] MEDS ORDERED: EPHEDRINE 25 MG/5 ML SYRINGE ONE (11:09)
[2020-01-20] MEDS ORDERED: Protamine Sulfate 250 MG/25 ML VIAL ONE (11:09)
[2020-01-20] MEDS ORDERED: Papaverine 60 MG/2 ML VIAL ONE (11:09)
[2020-01-20] MEDS ORDERED: Lidocaine 2% PF 5 ML VIAL ONE (11:09)
[2020-01-20] MEDS ORDERED: Thrombin 5000 UNITS/5 ML VIAL ONE (11:09)
[2020-01-20 12:36] LABS: Base Excess (BEa) -2.5 mEq/L (-2.0 to +3.0); CO2 Tension 47.6 mmHg (35.0-45.0); Calcium, Ionized (arterial) 1.17 mmol/L (1.12-1.30); Carboxyhemoglobin (COHb) 0.8 gm% (0.0-3.0); Potassium - ABG Lab 3.94 mmol/L (3.70-5.30); pH, Arterial 7.32 (7.35-7.45)
[2020-01-20 12:37] LABS: Puncture Site ALINE
[2020-01-20] MEDS ORDERED: Bisacodyl 10 MG SUPP PR PRN (12:48)
[2020-01-20] MEDS ORDERED: Norepinephrine 8 MG/0.9% NS 250 ML IVPB PRN (12:48)
[2020-01-20] MEDS ORDERED: Post-Op Insulin Drip Protocol IVPB ONE (12:48)
[2020-01-20] MEDS ORDERED: niCARdipine 25 MG in Sodium Chloride 0.9% 250 ML 240 ML IVPB PRN (12:48)
[2020-01-20] MEDS ORDERED: Guaifenesin DM 100-10/5 ML UDCUP PO PRN (12:48)
[2020-01-20] MEDS ORDERED: Bisacodyl 5 MG TAB PO PRN (12:48)
[2020-01-20] MEDS ORDERED: DOPamine 400 MG/D5W 250 ML 250 ML IVPB PRN (12:48)
[2020-01-20] MEDS ORDERED: Mag-Al 1200 mg/1200 mg/30 ML UDCUP PO PRN (12:48)
[2020-01-20] MEDS ORDERED: Potassium Chloride 20 MEQ/100 ML PREMIX BAG IVPB PRN (12:48)
[2020-01-20] MEDS ORDERED: Acetaminophen 325 MG TAB PO PRN (12:48)
[2020-01-20] MEDS ORDERED: Nitroglycerin 50 MG/250 ML BOT 250 ML IVPB PRN (12:48)
[2020-01-20] MEDS ORDERED: hydrALAZINE 20 MG/ML VIAL SLOW IVP PRN (12:48)
[2020-01-20] MEDS ORDERED: Promethazine HCl 25 MG/ML VIAL IM PRN (12:48)
[2020-01-20] MEDS ORDERED: Hetastarch 6% 500 ML 500 ML IVPB PRN (12:48)
[2020-01-20] MEDS ORDERED: Magnesium 2 GM/50 ML 2 GM in Premix Bag 1 BAG IVPB SCH (12:48)
[2020-01-20 12:55] LABS: #Basophils 0.1 thou/uL (0.0-0.2); #Eosinphils 0.1 thou/uL (0.0-0.7); #Lymphocytes 1.3 thou/uL (1.20-3.40); #Monocytes 0.9 thou/uL (0.11-0.59); #Neutrophils 12.1 thou/uL (1.40-6.50); %Basophils 0.6 % (0.0-1.0); %Eosinophils 0.6 % (0.0-10.0); %Lymphocytes 9.1 % (21.0-51.0); %Monocytes 6.2 % (0.0-10.0); %Neutrophils 83.6 % (42.0-75.0); Hemoglobin 16.1 g/dL (14.0-18.0); Mean Corpuscular HGB CONC 32.9 g/dL (32.0-36.0); Mean Corpuscular Hemoglobin 28.7 pg (27.0-31.0); Mean Corpuscular Volume 87.2 fL (78.0-98.0); Platelet Count 209 thou/uL (130-400); RBC Distribution Width 11.8 % (11.5-14.5); Red Blood Cell (RBC) Count 5.61 mill/uL (4.70-6.10); White Blood Cell (WBC) Count 14.5 thou/uL (4.8-10.8)
[2020-01-20] MEDS ORDERED: HUMULIN R 100 UNITS in Sodium Chloride 0.9% 100 ML IVPB SCH (13:01)
[2020-01-20] MEDS ORDERED: Dextrose 50% Abboject 50 ML SYRINGE SLOW IVP PRN (13:01)
[2020-01-20] MEDS ORDERED: Dextrose 5% in Water 1,000 ML IV PRN (13:01)
--- NOTE | 2020-01-20 13:02 | RAD ---
Chest one view HISTORY: Heart surgery. Follow-up. COMPARISON: 06/05/2019. FINDINGS: Cardiac silhouette is magnified and upper limits of normal in size. Shallow inspiration acc entuates pulmonary markings that are upper limits of normal. Mediastinum is midline with new postoperative changes. Tip of a right subclavian central venous catheter projects over the right atrium. Opaque drain over t he mediastinum. No lobar consolidation or evidence of pneumothorax. IMPRESSION : Interval postoperative changes mediastinum with lines and tubes as detailed above.
[2020-01-20 13:04] LABS: INR-International Normal Ratio 1.1; PTT 29.9 sec (22.9-36.1); Prothrombin Time 13.7 sec (12.0-14.7)
[2020-01-20 13:09] LABS: Anion Gap 11 mmol/L (10-20); BUN (Urea Nitrogen) 32 mg/dL (8.9-20.6); Calc. Creatinine Clearance 98 mL/min (70-130); Carbon Dioxide 23 mmol/L (22-29); Chloride 109 mmol/L (98-107); Estimated GFR-MDRD 33; Glucose 115 mg/dL (70-105); Sodium 139 mmol/L (136-145)
[2020-01-20] MEDS: Lactated Ringer's 1,000 ML IV SCH (13:36)
[2020-01-20] MEDS: CEFAZOLIN 2 GM in Premix Bag 1 BAG IVPB SCH ×2 (13:39→21:40)
[2020-01-20 14:52] VITALS: BMI 46.2
[2020-01-20] MEDS: Fentanyl 100 MCG/2 ML VIAL SLOW IVP PRN ×2 (16:37→21:59)
[2020-01-20] MEDS: Ondansetron PF 4 MG/2 ML Vial IVP PRN ×2 (16:50→21:53)
[2020-01-20] MEDS: Promethazine HCl 25 MG/ML VIAL SLOW IVP PRN ×2 (17:56→22:19)
[2020-01-20 19:42] LABS: Hemoglobin 16.5 g/dL (14.0-18.0)
[2020-01-20 19:55] LABS: Potassium 5.8 mmol/L (3.5-5.1)
[2020-01-20] MEDS: Famotidine/PF 20 mg/2ml Vial SLOW IVP SCH (21:41)
[2020-01-21] MEDS: Lactated Ringer's 1,000 ML IV SCH ×4 (00:04→17:04)
[2020-01-21] MEDS: Promethazine HCl 25 MG/ML VIAL SLOW IVP PRN ×4 (01:30→13:30)
[2020-01-21] MEDS: Ondansetron PF 4 MG/2 ML Vial IVP PRN ×4 (03:34→20:44)
[2020-01-21] MEDS: Fentanyl 100 MCG/2 ML VIAL SLOW IVP PRN ×5 (03:41→19:49)
[2020-01-21 04:01] LABS: #Neutrophils 13.8 thou/uL (1.40-6.50); %Basophils 0.2 % (0.0-1.0); %Eosinophils 0.1 % (0.0-10.0); %Lymphocytes 6.4 % (21.0-51.0); %Monocytes 6.5 % (0.0-10.0); %Neutrophils 86.8 % (42.0-75.0); Hemoglobin 15.8 g/dL (14.0-18.0); Mean Corpuscular HGB CONC 31.2 g/dL (32.0-36.0); Mean Corpuscular Hemoglobin 27.4 pg (27.0-31.0); Mean Corpuscular Volume 87.8 fL (78.0-98.0); Mean Platelet Volume 8.2 fL (7.4-10.4); Platelet Count 260 thou/uL (130-400); RBC Distribution Width 12.3 % (11.5-14.5); Red Blood Cell (RBC) Count 5.77 mill/uL (4.70-6.10); White Blood Cell (WBC) Count 15.8 thou/uL (4.8-10.8)
[2020-01-21 04:37] LABS: Anion Gap 15 mmol/L (10-20); BUN (Urea Nitrogen) 34 mg/dL (8.9-20.6); Calc. Creatinine Clearance 95 mL/min (70-130); Calcium 8.4 mg/dL (7.8-10.44); Carbon Dioxide 20 mmol/L (22-29); Chloride 109 mmol/L (98-107); Estimated GFR-MDRD 31; Glucose 146 mg/dL (70-105); Potassium 5.1 mmol/L (3.5-5.1); Sodium 139 mmol/L (136-145)
[2020-01-21] MEDS: CEFAZOLIN 2 GM in Premix Bag 1 BAG IVPB SCH (05:41)
--- NOTE | 2020-01-21 07:53 | RAD ---
Exam: Chest one view HISTORY:Status post open heart surgery Comparison: 01/20/2020 FINDINGS: Cardiac silhouette:Cardiomegaly. There are sternotomy wires and vascular rings. Lines and tubes: Mediastinal drainage catheter and right-sided central venous catheter are redemonstr ated. Aorta: Unremarkable Pulmonary vessels: Normal Costophrenic angles: Small right-sided effusion LUNGS: Patchy opacities in the lung bases, right greater than left. Pneumothorax: None Osseous abnormalities: None IMPRESSION: Findings compatible with recent open heart surgery.
[2020-01-21] MEDS: Famotidine/PF 20 mg/2ml Vial SLOW IVP SCH (08:04)
[2020-01-21] MEDS: Carvedilol 6.25 MG TAB PO SCH ×2 (08:11→16:19)
[2020-01-21] MEDS: Ezetimibe 10 MG TAB PO SCH ×2 (08:11→08:12)
[2020-01-21] MEDS: Enoxaparin Sodium 40 MG/0.4 ML SYRINGE SC SCH (08:12)
[2020-01-21] MEDS: Empagliflozin 10 MG TAB PO SCH (08:13)
[2020-01-21] MEDS: Aspirin 325 MG TAB PO SCH (09:00)
[2020-01-21] MEDS: Citalopram 20 MG TAB PO SCH (09:20)
[2020-01-21] MEDS: hydrALAZINE 25 MG TAB PO SCH ×4 (09:20→20:44)
[2020-01-21] MEDS ORDERED: Insulin Glargine 7 UNITS in Pre-Filled Syringe 1 EACH SC SCH (09:30)
[2020-01-21] MEDS ORDERED: Metoprolol Tartrate 5 MG/5 ML VIAL IVP SCH (10:30)
--- NOTE | 2020-01-21 10:38 | CON ---
DATE OF CONSULTATION: HISTORY OF PRESENT ILLNESS: This is a 44-year-old morbidly obese gentleman, status post coronary artery bypass graft surgery. He is in the ICU, reason for consultation. He is also on an insulin drip. PAST MEDICAL HISTORY: Pertinent for: 1. Cardiomyopathy. 2. Coronary artery disease. 3. Diabetes. 4. Chronic pain. 5. Hypertension. 6. High cholesterol. PREVIOUS SURGERIES: Included: 1. Previous craniotomy for trauma . 2. History of lumbar surgery. 3. Recent CABG surgery. SOCIAL HISTORY: Former smoker, quit several years ago. No alcohol. HOME MEDICATIONS: 1. Hydralazine 25 three times a day. 2. Procardia 60. 3. Vascepa 2 mg twice a day. 4. Gabapentin 600. 5. Zetia 10. 6. Jardiance 10. 7. Celexa 20. 8. Coreg 25 b.i.d. ALLERGIES: MORPHINE. FAMILY HISTORY: Unremarkable. REVIEW OF SYSTEMS: Ten-point negative. PHYSICAL EXAMINATION: GENERAL: Morbidly obese gentleman. VITAL SIGNS: blood pressure 170/72, respiratory rate 18, pulse 80. CHEST: No wheezing, crackles. CARDIAC: Normal S1 and S2. No gallops. ABDOMEN: No masses. DIAGNOSTIC STUDIES: X-ray shows no acute infiltrates. ASSESSMENT: 1. Morbidly obese. 2. Diabetes. 3. Probably has sleep apnea. 4. Status post bypass surgery. 5. Diabetes. 6. Previous trauma. PLAN: The patient appears to be relatively comfortable. Continue PT and supportive care. We will follow him in the ICU. He is probably going to benefit from an outpatient sleep study. TIME SPENT: 70 minutes spent, 50% in direct patient care. Job ID: [id number]
--- NOTE | 2020-01-21 10:44 | PRG ---
DATE OF SERVICE: 01/21/2020 SUBJECTIVE: Mr. Gates feels very nauseated. No angina. His blood pressure is high. He is on IV nitroglycerin. OBJECTIVE: VITAL SIGNS: Blood pressure is 180 systolic on the arterial line. LUNGS: Clear. CARDIAC: Normal S1, S2. ABDOMEN: Obese, nontender. EXTREMITIES: Moderate edema. ASSESSMENT: 1. Postoperative. 2. Hypertensive. 3. Morbid obesity. PLAN: 1. He is back on carvedilol and lisinopril. 2. Jardiance. 3. Give him a single dose of metoprolol IV. Job ID: [id number]
--- NOTE | 2020-01-21 11:19 | OP ---
DATE OF PROCEDURE: 01/20/2020 PREOPERATIVE DIAGNOSIS: Coronary disease. PROCEDURES PERFORMED: Coronary artery bypass graft x3, left internal mammary artery good quality to a 2 mm left anterior descending, saphenous vein good quality to a 2 mm distal obtuse marginal and a 1.5 mm patent ductus arteriosus. STANDARDS ENGINEER: Armaan Hogan MD TRANSFUSION: None. DESCRIPTION OF PROCEDURE: After adequate anesthesia had been obtained, an endovascular vein harvest of the left greater saphenous vein from just above the knee to the ankle was performed by Dr. Hogan while I did a median sternotomy. After opening the sternum, left internal mammary artery was harvested with some difficulty due to the patient's size. It was divided distally after heparinization. There was extremely large amount of thymic fat and the left side was removed to allow the mammary artery to course medially to the heart. The aorta and right atrium were cannulated and cardiopulmonary bypass begun. Aorta was cross-clamped and after a liter of cold blood cardioplegia, 3 distal anastomoses were completed. Cross-clamp was removed and the partial occluding clamp placed and 2 proximal anastomosis performed on the aortic root and marked with rings. The patient was then weaned from cardiopulmonary bypass; however, the right vein graft was too long and cardiopulmonary bypass was reinstituted. Partial occluding clamp was placed and the right coronary vein graft was shortened by about 2 to 2.5 cm. Following this, the patient was weaned from cardiopulmonary bypass. Cannula was removed. Protamine given systemically with the aortic cannulation site being secured with a 4-0 Prolene suture. Following protamine administration, suture lines were inspected anteriorly and inferiorly, and the circumflex could not be seen due to the patient's large heart. Mediastinal drains x2 were placed. The mammary artery lie medial to the left lung and the pleura was not entered. The sternum was reapproximated with combination of #7 interrupted wires on the manubrium, 3 zip ties on the sternum and then 3 additional wires inferiorly. Vancomycin paste was used on the sternal edges as well as platelet rich blood and platelet poor plasma. Subcutaneous tissue was closed in multiple layers and skin was closed. The patient was to be taken to the ICU in guarded condition. Job ID: [id number]
[2020-01-21] MEDS: Insulin Regular 300 UNITS/3 ML VIAL SC PRN ×3 (12:02→20:45)
[2020-01-21] MEDS: Metoclopramide HCl 10 MG/2 ML VIAL IVP PRN (15:39)
[2020-01-21] MEDS: Pantoprazole 40 MG VIAL IVP SCH (20:45)
[2020-01-21] MEDS: Rosuvastatin 20 MG TAB PO SCH (20:45)
[2020-01-22] MEDS: Insulin Regular 300 UNITS/3 ML VIAL SC PRN ×4 (00:11→16:24)
[2020-01-22] MEDS: Metoclopramide HCl 10 MG/2 ML VIAL IVP PRN (00:16)
[2020-01-22] MEDS: HYDROcodone/Acetaminophen 5/325 mg Tablet PO PRN ×4 (00:17→21:13)
[2020-01-22 05:05] LABS: #Lymphocytes 1.6 thou/uL (1.20-3.40); #Monocytes 1.3 thou/uL (0.11-0.59); #Neutrophils 9.8 thou/uL (1.40-6.50); %Basophils 0.3 % (0.0-1.0); %Eosinophils 0.1 % (0.0-10.0); %Lymphocytes 12.5 % (21.0-51.0); %Monocytes 10.5 % (0.0-10.0); %Neutrophils 76.6 % (42.0-75.0); Hemoglobin 13.8 g/dL (14.0-18.0); Mean Corpuscular HGB CONC 31.9 g/dL (32.0-36.0); Mean Corpuscular Hemoglobin 28.6 pg (27.0-31.0); Mean Corpuscular Volume 89.7 fL (78.0-98.0); Mean Platelet Volume 8.1 fL (7.4-10.4); Platelet Count 226 thou/uL (130-400); RBC Distribution Width 12.4 % (11.5-14.5); Red Blood Cell (RBC) Count 4.81 mill/uL (4.70-6.10); White Blood Cell (WBC) Count 12.7 thou/uL (4.8-10.8)
[2020-01-22 05:24] LABS: Anion Gap 10 mmol/L (10-20); BUN (Urea Nitrogen) 36 mg/dL (8.9-20.6); Calc. Creatinine Clearance 77 mL/min (70-130); Calcium 8.1 mg/dL (7.8-10.44); Carbon Dioxide 28 mmol/L (22-29); Chloride 106 mmol/L (98-107); Estimated GFR-MDRD 25; Glucose 148 mg/dL (70-105); Potassium 4.4 mmol/L (3.5-5.1); Sodium 140 mmol/L (136-145)
[2020-01-22] MEDS: Fentanyl 100 MCG/2 ML VIAL SLOW IVP PRN (06:07)
--- NOTE | 2020-01-22 07:45 | RAD ---
EXAM: Single view of the chest HISTORY: Status post open heart surgery COMPARISON: 01/21/2020 FINDINGS: Single view of the chest shows an enlarged but stable cardiomediastinal silhouette. The pa tient is status post CABG. The central venous catheter is unchanged in position. Atelectasis is seen in the lung bases. No pneumothorax is seen. The bones are unremarkable IMPRESSION: Stable exam
[2020-01-22] MEDS: Carvedilol 6.25 MG TAB PO SCH (08:01)
[2020-01-22] MEDS: Citalopram 20 MG TAB PO SCH (08:04)
[2020-01-22] MEDS: hydrALAZINE 25 MG TAB PO SCH ×3 (08:04→20:54)
[2020-01-22] MEDS: Aspirin 325 MG TAB PO SCH (08:04)
[2020-01-22] MEDS: Ezetimibe 10 MG TAB PO SCH (08:05)
[2020-01-22] MEDS: Enoxaparin Sodium 40 MG/0.4 ML SYRINGE SC SCH (08:59)
[2020-01-22] MEDS ORDERED: Carvedilol 6.25 MG TAB PO SCH (09:30)
[2020-01-22] MEDS: NIFEdipine XL 30 MG TAB PO SCH (09:36)
[2020-01-22] MEDS: Empagliflozin 10 MG TAB PO SCH (09:36)
[2020-01-22] MEDS: Pantoprazole 40 MG VIAL IVP SCH ×2 (09:37→20:54)
--- NOTE | 2020-01-22 09:38 | PRG ---
DATE OF SERVICE: SUBJECTIVE: Mr. Gates sitting up in the chair, not short of breath. No angina. OBJECTIVE: VITAL SIGNS: His blood pressure is high in the 160 systolic, the pulse in the 80s. LUNGS: Clear. CARDIAC: Normal S1, normal S2. ABDOMEN: Obese, nontender. EXTREMITIES: Mild edema. ASSESSMENT: 1. Status post bypass surgery, doing well. 2. Morbid obesity. 3. Hypertension. PLAN: 1. Resume home dose of carvedilol 25 mg twice a day. 2. Start him up again on Procardia XL. He was on 60 mg at home. We will start with 30 today, probably need to go to 60 tomorrow. Job ID: [id number]
[2020-01-22] MEDS ORDERED: Dextrose 5% in Water 1,000 ML IV PRN (11:25)
[2020-01-22] MEDS ORDERED: Dextrose 50% Abboject 50 ML SYRINGE SLOW IVP PRN (11:25)
[2020-01-22] MEDS: Lactated Ringer's 1,000 ML IV SCH (12:01)
[2020-01-22] MEDS ORDERED: Sodium Chloride 0.9% 1,000 ML IV SCH (12:15)
[2020-01-22] MEDS ORDERED: Mag-Al 1200 mg/1200 mg/30 ML UDCUP PO PRN (12:37)
[2020-01-22] MEDS ORDERED: Zolpidem Tartrate 5 MG TAB PO PRN (12:37)
[2020-01-22] MEDS ORDERED: Guaifenesin DM 100-10/5 ML UDCUP PO PRN (12:37)
[2020-01-22] MEDS ORDERED: Bisacodyl 10 MG SUPP PR PRN (12:37)
[2020-01-22] MEDS ORDERED: Mineral Oil ENEMA PR PRN (12:37)
[2020-01-22] MEDS ORDERED: Bisacodyl 5 MG TAB PO PRN (12:37)
[2020-01-22] MEDS ORDERED: Nitroglycerin 0.4 MG TAB (25 Tab Bottle) SL PRN (12:37)
[2020-01-22] MEDS ORDERED: diphenhydrAMINE 25 MG CAP PO PRN (12:37)
[2020-01-22] MEDS: Sodium Chloride 0.9% 1,000 ML IV SCH ×2 (13:17→17:16)
--- NOTE | 2020-01-22 14:39 | PRG ---
DATE OF SERVICE: 01/22/2020 SUBJECTIVE: Gilberto Gates this morning is sitting on the side of the bed, awake, responsive, in no distress. OBJECTIVE: VITAL SIGNS: Blood pressure 120/80, pulse 78, O2 saturations 90%. CHEST: No wheezing, no crackles. CARDIAC: Normal S1, S2. No gallops. ABDOMEN: No masses. He is status post CABG, morbidly obese, possible sleep apnea. DIAGNOSTIC DATA: His labs are unremarkable. White count 12,000, H and H are 13 and 48. Electrolytes are normal. Chest x-ray taken today shows cardiomegaly. IMPRESSION: Status post coronary artery bypass graft, morbidly obese, possibly sleep apnea. PLAN: I have ordered nocturnal CPAP. He was placed on the CPAP last night, I told the nurse to make sure they try on CPAP tonight, outpatient sleep study. Job ID: [id number]
[2020-01-22] MEDS: Carvedilol 25 MG TAB PO SCH (16:32)
[2020-01-22] MEDS: Rosuvastatin 20 MG TAB PO SCH (20:54)
[2020-01-23] MEDS: Sodium Chloride 0.9% 1,000 ML IV SCH (01:55)
[2020-01-23 05:33] LABS: #Eosinphils 0.1 thou/uL (0.0-0.7); #Lymphocytes 1.5 thou/uL (1.20-3.40); #Monocytes 1.2 thou/uL (0.11-0.59); #Neutrophils 6.7 thou/uL (1.40-6.50); %Basophils 0.5 % (0.0-1.0); %Eosinophils 0.8 % (0.0-10.0); %Lymphocytes 15.9 % (21.0-51.0); %Monocytes 12.4 % (0.0-10.0); %Neutrophils 70.4 % (42.0-75.0); Hemoglobin 13.3 g/dL (14.0-18.0); Mean Corpuscular HGB CONC 30.9 g/dL (32.0-36.0); Mean Corpuscular Hemoglobin 27.8 pg (27.0-31.0); Mean Corpuscular Volume 90.1 fL (78.0-98.0); Mean Platelet Volume 8.8 fL (7.4-10.4); Platelet Count 192 thou/uL (130-400); RBC Distribution Width 12.2 % (11.5-14.5); Red Blood Cell (RBC) Count 4.79 mill/uL (4.70-6.10); White Blood Cell (WBC) Count 9.5 thou/uL (4.8-10.8)
[2020-01-23] MEDS: HYDROcodone/Acetaminophen 5/325 mg Tablet PO PRN ×2 (05:43→13:40)
[2020-01-23 05:58] LABS: Anion Gap 12 mmol/L (10-20); BUN (Urea Nitrogen) 33 mg/dL (8.9-20.6); Calc. Creatinine Clearance 90 mL/min (70-130); Calcium 7.9 mg/dL (7.8-10.44); Carbon Dioxide 24 mmol/L (22-29); Chloride 106 mmol/L (98-107); Estimated GFR-MDRD 30; Glucose 164 mg/dL (70-105); Potassium 4.3 mmol/L (3.5-5.1); Sodium 138 mmol/L (136-145)
[2020-01-23] MEDS: Insulin Regular 300 UNITS/3 ML VIAL SC PRN ×3 (06:06→18:01)
--- NOTE | 2020-01-23 08:08 | RAD ---
CHEST 1 VIEW: INDICATION: History of CABG. COMPARISON: Prior examination dated 01/22/2020. IMPRESSION: Cardiomegaly, sternotomy changes, and right-sided subclavian central venous catheter are similar to t he comparison. Mild pulmonary vascular congestion remains. No definite pleural effusion or pneumoth orax is evident. POS: BH
[2020-01-23] MEDS: Enoxaparin Sodium 40 MG/0.4 ML SYRINGE SC SCH (08:27)
[2020-01-23] MEDS: NIFEdipine XL 30 MG TAB PO SCH (08:27)
[2020-01-23] MEDS: Aspirin 325 mg Enteric Coated Tablet PO SCH (08:28)
[2020-01-23] MEDS: Pantoprazole 40 MG VIAL IVP SCH ×2 (08:28→20:50)
[2020-01-23] MEDS: Citalopram 20 MG TAB PO SCH (08:29)
[2020-01-23] MEDS: Ezetimibe 10 MG TAB PO SCH (08:29)
[2020-01-23] MEDS: hydrALAZINE 25 MG TAB PO SCH ×3 (08:29→20:50)
[2020-01-23] MEDS: Carvedilol 25 MG TAB PO SCH ×2 (08:29→18:01)
[2020-01-23] MEDS: Furosemide 40 MG TAB PO SCH ×2 (08:33→15:24)
--- NOTE | 2020-01-23 12:08 | PDOC.CPN ---
- Subjective Date: 01/23/20 Time: 11:15 Interval history: Mr. Gates is sitting up in the chair at bedside, watching TV. Feels "okay" per his report, denies SOB, chest pain, or chest tightness. He reports walking with PT, but feels limited in mobility by his harper catheter. Telemetry reviewed, no overnight events. - Review of Systems General: denies: fever/chills, weight/appetite/sleep changes, night sweats, fatigue Respiratory: denies: cough, congestion, shortness of breath, exercise intolerance Cardiovascular: denies: chest pain, palpitation, edema, paroxysmal nocturnal dyspnea, orthopnea Gastrointestinal: denies: nausea, vomiting, diarrhea, constipation, abd pain, GI bleeding - Objective Allergies/Adverse Reactions: Allergies Allergy/AdvReac Type Severity Reaction Status Date / Time morphine Allergy Intermediate ITCHING Verified 01/14/20 10:50 Visit Medications: Current Medications Hydrocodone Bitart/Acetaminophen ([place] 5/325) 1 tab PO Q4H PRN PRN Reason: Moderate Pain (4-6) Last Admin: 01/22/20 00:17 Dose: 1 tab Hydrocodone Bitart/Acetaminophen ([place] 5/325) 2 tab PO Q4H PRN PRN Reason: Severe Pain (7-10) Last Admin: 01/23/20 05:43 Dose: 2 tab Al Hydroxide/Mg Hydroxide (Maalox) 30 ml PO Q4H PRN PRN Reason: Indigestion Albuterol/Ipratropium (Duoneb) 3 ml NEB [id number] PRN PRN Reason: SHORTNESS OF BREATH Aspirin (Ecotrin) 325 mg PO DAILY [facility] Last Admin: 01/23/20 08:28 Dose: 325 mg Bisacodyl (Dulcolax) 10 mg PO Q12H PRN PRN Reason: Constipation Bisacodyl (Dulcolax) 10 mg [place] Q12H PRN PRN Reason: Constipation Carvedilol (Coreg) 25 mg PO BID-[facility] Last Admin: 01/23/20 08:29 Dose: 25 mg Citalopram Hydrobromide (Celexa) 20 mg PO DAILY [facility] Last Admin: 01/23/20 08:29 Dose: 20 mg Diphenhydramine HCl (Benadryl) 25 mg PO Q6H PRN PRN Reason: Itching & Insomnia or Rob Fred Ezetimibe (Zetia) 10 mg PO DAILY [facility] Last Admin: 01/23/20 08:29 Dose: 10 mg Enoxaparin Sodium (Lovenox) 40 mg SC 0900 [facility] Last Admin: 01/23/20 08:27 Dose: 40 mg Furosemide (Lasix) 40 mg PO 0900,1400 [facility] Last Admin: 01/23/20 08:33 Dose: 40 mg Guaifenesin/Dextromethorphan (Robitussin Dm) 15 ml PO Q4H PRN PRN Reason: Cough Hydralazine HCl (Apresoline) 25 mg PO TID [facility] Last Admin: 01/23/20 08:29 Dose: 25 mg Insulin Human Regular (Humulin R) 0 units SC .AGGRESSIVE SLIDING PRN; Protocol PRN Reason: AGGRESSIVE SLIDING SCALE Last Admin: 01/23/20 11:57 Dose: 3 unit Mineral Oil (Fleet Mineral Oil) 133 ml [place] DAILYPRN PRN PRN Reason: Constipation Nifedipine (Procardia Xl) 30 mg PO DAILY [facility] Last Admin: 01/23/20 08:27 Dose: 30 mg Nitroglycerin (Nitrostat) 0.4 mg SL Q5MIN PRN PRN Reason: Chest Pain Pantoprazole Sodium (Protonix) 40 mg IVP Q12HR [facility] Last Admin: 01/23/20 08:28 Dose: 40 mg Rosuvastatin Calcium (Crestor) 20 mg PO HS [facility] Last Admin: 01/22/20 20:54 Dose: 20 mg Zolpidem Tartrate (Ambien) 5 mg PO HSPRN PRN PRN Reason: Insomnia Vital Signs & Weight: Vital Signs Temp Pulse Resp BP Pulse Ox 01/23/20 07:15 99.0 F 76 18 155/74 H 92 L 01/23/20 03:19 98.8 F 70 16 118/63 91 L Weight 354 lb 11.2 oz - Quality Measures CV meds: Beta Devyn: Yes, Statin: Yes, Plavix/Effient/Brilinta: No, Anticoagulant: No - Medication Contraindications No ADITYA/ARB reason: Medical contraindication (CKD) - Physical Exam General: alert & oriented x3, appears well, no apparent distress HEENT: mucus membranes moist Neck: supple neck, no JVD/HJR Cardiac: regular rate and rhythm, no murmur, S1/S2 Lungs: normal breath sounds, no wheeze, rales, rhonchi Neuro: grossly intact Abdomen: active bowel sounds, soft Extremities: 1+ LE edema - Labs Result Diagrams: 01/23/20 04:35 01/23/20 04:35 - Telemetry Sinus rhythms and dysrhythmias: sinus rhythm - Assessment/Plan Assessment/Plan: Assessment: 1. CAD, S/P CABG x3 01/19 2. HTN 3. Morbid Obesity 4. CKD Plan: Doing well, blood pressure improving with nifedipine, will titrate as needed. Encouraged to increase ambulation, will discontinue harper. Continue ASA, statin, BB.
--- NOTE | 2020-01-23 16:01 | PRG ---
DATE OF SERVICE: 01/23/2020 SUBJECTIVE: The patient is doing fairly well. He has no complaints about his breathing. OBJECTIVE: VITAL SIGNS: Afebrile - all vitals stable. HEENT: Unremarkable. NECK: No adenopathy or JVD. LUNGS: Clear. ASSESSMENT: 1. Status post coronary artery bypass grafting surgery. 2. Likely obstructive sleep apnea. PLAN: At some point, he will need outpatient sleep study. Dr. Dodson will see again on Saturday. Job ID: [id number]
[2020-01-23] MEDS: Rosuvastatin 20 MG TAB PO SCH (20:50)
[2020-01-24 05:10] LABS: Anion Gap 11 mmol/L (10-20); BUN (Urea Nitrogen) 30 mg/dL (8.9-20.6); Calc. Creatinine Clearance 109 mL/min (70-130); Carbon Dioxide 26 mmol/L (22-29); Chloride 105 mmol/L (98-107); Estimated GFR-MDRD 37; Glucose 150 mg/dL (70-105); Potassium 3.6 mmol/L (3.5-5.1); Sodium 138 mmol/L (136-145)
[2020-01-24] MEDS: Carvedilol 25 MG TAB PO SCH ×2 (08:33→18:02)
[2020-01-24] MEDS: Citalopram 20 MG TAB PO SCH (08:33)
[2020-01-24] MEDS: Furosemide 40 MG TAB PO SCH ×2 (08:33→14:53)
[2020-01-24] MEDS: hydrALAZINE 25 MG TAB PO SCH ×3 (08:33→20:01)
[2020-01-24] MEDS: NIFEdipine XL 60 MG TAB PO SCH (08:33)
[2020-01-24] MEDS: Ezetimibe 10 MG TAB PO SCH (08:33)
[2020-01-24] MEDS: Aspirin 325 mg Enteric Coated Tablet PO SCH (08:33)
[2020-01-24] MEDS: HYDROcodone/Acetaminophen 5/325 mg Tablet PO PRN ×3 (08:34→20:02)
[2020-01-24] MEDS: Enoxaparin Sodium 40 MG/0.4 ML SYRINGE SC SCH (08:34)
[2020-01-24] MEDS: Pantoprazole 40 MG VIAL IVP SCH ×2 (08:34→20:01)
--- NOTE | 2020-01-24 08:41 | PDOC.CPN ---
- Subjective Date: 01/24/20 Time: 08:20 Interval history: Mr. Gates was seen and examined. Had a good night, feels much better with harper catheter out. Denies any acute complaints or concerns. Denies any chest pain or tightness, denies SOB, on RA. Has already ambulated with PT this am, did well with this. Telemetry reviewed, no overnight events. - Review of Systems General: denies: fever/chills, weight/appetite/sleep changes, night sweats, fatigue Respiratory: denies: cough, congestion, shortness of breath, exercise intolerance Cardiovascular: denies: chest pain, palpitation, edema, paroxysmal nocturnal dyspnea, orthopnea Gastrointestinal: denies: nausea, vomiting, diarrhea, constipation, abd pain, GI bleeding - Objective Allergies/Adverse Reactions: Allergies Allergy/AdvReac Type Severity Reaction Status Date / Time morphine Allergy Intermediate ITCHING Verified 01/14/20 10:50 Visit Medications: Current Medications Hydrocodone Bitart/Acetaminophen ([place] 5/325) 1 tab PO Q4H PRN PRN Reason: Moderate Pain (4-6) Last Admin: 01/22/20 00:17 Dose: 1 tab Hydrocodone Bitart/Acetaminophen ([place] 5/325) 2 tab PO Q4H PRN PRN Reason: Severe Pain (7-10) Last Admin: 01/23/20 13:40 Dose: 2 tab Al Hydroxide/Mg Hydroxide (Maalox) 30 ml PO Q4H PRN PRN Reason: Indigestion Albuterol/Ipratropium (Duoneb) 3 ml NEB [id number] PRN PRN Reason: SHORTNESS OF BREATH Aspirin (Ecotrin) 325 mg PO DAILY [facility] Last Admin: 01/23/20 08:28 Dose: 325 mg Bisacodyl (Dulcolax) 10 mg PO Q12H PRN PRN Reason: Constipation Bisacodyl (Dulcolax) 10 mg [place] Q12H PRN PRN Reason: Constipation Carvedilol (Coreg) 25 mg PO BID-[facility] Last Admin: 01/23/20 18:01 Dose: 25 mg Citalopram Hydrobromide (Celexa) 20 mg PO DAILY [facility] Last Admin: 01/23/20 08:29 Dose: 20 mg Diphenhydramine HCl (Benadryl) 25 mg PO Q6H PRN PRN Reason: Itching & Insomnia or Rob Fred Ezetimibe (Zetia) 10 mg PO DAILY [facility] Last Admin: 01/23/20 08:29 Dose: 10 mg Enoxaparin Sodium (Lovenox) 40 mg SC 0900 [facility] Last Admin: 01/23/20 08:27 Dose: 40 mg Furosemide (Lasix) 40 mg PO 0900,1400 [facility] Last Admin: 01/23/20 15:24 Dose: 40 mg Guaifenesin/Dextromethorphan (Robitussin Dm) 15 ml PO Q4H PRN PRN Reason: Cough Hydralazine HCl (Apresoline) 25 mg PO TID [facility] Last Admin: 01/23/20 20:50 Dose: 25 mg Insulin Human Regular (Humulin R) 0 units SC .AGGRESSIVE SLIDING PRN; Protocol PRN Reason: AGGRESSIVE SLIDING SCALE Last Admin: 01/23/20 18:01 Dose: 3 unit Mineral Oil (Fleet Mineral Oil) 133 ml [place] DAILYPRN PRN PRN Reason: Constipation Nifedipine (Procardia Xl) 60 mg PO DAILY [facility] Nitroglycerin (Nitrostat) 0.4 mg SL Q5MIN PRN PRN Reason: Chest Pain Pantoprazole Sodium (Protonix) 40 mg IVP Q12HR [facility] Last Admin: 01/23/20 20:50 Dose: 40 mg Rosuvastatin Calcium (Crestor) 20 mg PO HS [facility] Last Admin: 01/23/20 20:50 Dose: 20 mg Zolpidem Tartrate (Ambien) 5 mg PO HSPRN PRN PRN Reason: Insomnia Vital Signs & Weight: Vital Signs Temp Pulse Resp BP BP Pulse Ox 01/24/20 08:29 98.6 F 85 18 182/94 H 93 L 01/24/20 04:00 97.6 F 77 18 165/82 H 92 L 01/24/20 01:13 93 L 01/23/20 23:53 76 135/78 01/23/20 20:50 78 Weight 356 lb 6.4 oz - Quality Measures CV meds: Beta Devyn: Yes, Statin: Yes, Plavix/Effient/Brilinta: No, Anticoagulant: No - Medication Contraindications No ADITYA/ARB reason: Medical contraindication (CKD) - Physical Exam General: alert & oriented x3, appears well HEENT: mucus membranes moist Neck: supple neck, no JVD/HJR Cardiac: regular rate and rhythm, no murmur, S1/S2 Lungs: clear to auscultation, normal breath sounds, no wheeze, rales, rhonchi Neuro: grossly intact Abdomen: unremarkable, active bowel sounds, soft, non-tender Extremities: no cyanosis, no clubbing, 1+ LE edema (left > right) Musculoskeletal: normal range of motion - Labs Result Diagrams: 01/23/20 04:35 01/24/20 04:24 - Telemetry Sinus rhythms and dysrhythmias: sinus rhythm - Assessment/Plan Assessment/Plan: Assessment: 1. CAD, S/P CABG x3 01/19 2. HTN-labile, increase nifedipine 3. Morbid Obesity 4. CKD- creatinine down to 1.99, stable Plan: Doing well, blood pressure labile, increase nifedipine. Encouraged to ambulate , use IS. Continue ASA, statin, BB. POC reviewed with Dr. Yepez.
[2020-01-24] MEDS ORDERED: Metolazone 5 MG TAB PO SCH (09:00)
[2020-01-24] MEDS ORDERED: Potassium Chloride 20 MEQ TAB PO SCH (09:15)
[2020-01-24] MEDS: Insulin Regular 300 UNITS/3 ML VIAL SC PRN ×3 (10:51→21:59)
[2020-01-24] MEDS: Rosuvastatin 20 MG TAB PO SCH (20:01)
[2020-01-25] MEDS: HYDROcodone/Acetaminophen 5/325 mg Tablet PO PRN ×2 (03:27→09:16)
[2020-01-25 04:20] LABS: Anion Gap 11 mmol/L (10-20); BUN (Urea Nitrogen) 30 mg/dL (8.9-20.6); Calc. Creatinine Clearance 111 mL/min (70-130); Calcium 8.3 mg/dL (7.8-10.44); Carbon Dioxide 28 mmol/L (22-29); Chloride 102 mmol/L (98-107); Estimated GFR-MDRD 38; Glucose 175 mg/dL (70-105); Potassium 3.4 mmol/L (3.5-5.1); Sodium 138 mmol/L (136-145)
[2020-01-25] MEDS: Insulin Regular 300 UNITS/3 ML VIAL SC PRN ×2 (06:19→11:09)
[2020-01-25] MEDS ORDERED: Potassium Chloride 20 MEQ TAB PO SCH ×2 (08:00→12:00)
--- NOTE | 2020-01-25 08:23 | PRG ---
DATE OF SERVICE: 01/25/2020 SUBJECTIVE: Mr. Gates is sitting up in bed. He says he feels well. No angina. No shortness of breath. OBJECTIVE: VITAL SIGNS: Blood pressure is still somewhat elevated, but improved, earlier it was 142/68, most recently 165/85. Pulse 76, regular. LUNGS: Clear. CARDIAC: Normal S1. Normal S2. EXTREMITIES: Only mild edema, which is actually improved for him. LABORATORY DATA: Creatinine is 1.94, which is better than previously. Potassium 3.4. ASSESSMENT: 1. Status post bypass surgery. 2. Hypertension, adequate control. 3. Mild hypokalemia. PLAN: Replete potassium. Okay to be released home later today or tomorrow per Dr. Dumont. Job ID: [id number]
[2020-01-25] MEDS: Carvedilol 25 MG TAB PO SCH (09:13)
[2020-01-25] MEDS: Aspirin 325 mg Enteric Coated Tablet PO SCH (09:14)
[2020-01-25] MEDS: Enoxaparin Sodium 40 MG/0.4 ML SYRINGE SC SCH (09:14)
[2020-01-25] MEDS: Citalopram 20 MG TAB PO SCH (09:14)
[2020-01-25] MEDS: NIFEdipine XL 60 MG TAB PO SCH (09:15)
[2020-01-25] MEDS: Furosemide 40 MG TAB PO SCH (09:15)
[2020-01-25] MEDS: Ezetimibe 10 MG TAB PO SCH (09:15)
[2020-01-25] MEDS: hydrALAZINE 25 MG TAB PO SCH (09:15)
[2020-01-25] MEDS: Pantoprazole 40 MG VIAL IVP SCH (09:16)
--- NOTE | 2020-01-25 10:32 | PRG ---
DATE OF SERVICE: 01/25/2020 SUBJECTIVE: This morning, he is better, less short of breath. X-ray shows improvement in his pulmonary edema. OBJECTIVE: VITAL SIGNS: Temperature 98, pulse 76, sats 100% on room air, and blood pressure 153/80. CHEST: No wheezing, no crackles. CARDIAC: Normal S1 and S2. No gallops. ABDOMEN: No masses. LABORATORY DATA: Creatinine is 1.94. ASSESSMENT: 1. Obstructive sleep apnea. 2. Status post coronary artery bypass grafting. PLAN: Disposition to home any time. He was told to follow up in the office for outpatient sleep study. Job ID: [id number]
[2020-01-25 11:25] VITALS: BP 153/73; TEMP 98.9
== END 2020-01-25 13:10 | disposition home or self-care (01) | DRG 236 ==
LOC: SURG A 01-20 05:40 → CCU 01-20 11:57 → 2NO 01-22 18:25
PROVIDERS: ADMIT Thoracic Surgery (Cardiothoracic Vascular Surgery); ATTEND Thoracic Surgery (Cardiothoracic Vascular Surgery)
PROC: 021109W Bypass Coronary Artery, Two Arteries from Aorta with Autologous Venous Tissue, Open Approach (ICD-10-PCS; principal; 2020-01-20)
PROC: 02100Z9 Bypass Coronary Artery, One Artery from Left Internal Mammary, Open Approach (ICD-10-PCS; 2020-01-20)
PROC: 06BQ3ZZ Excision of Left Saphenous Vein, Percutaneous Approach (ICD-10-PCS; 2020-01-20)
PROC: 5A1221Z Performance of Cardiac Output, Continuous (ICD-10-PCS; 2020-01-20)
DX: I25.10 Atherosclerotic heart disease of native coronary artery without angina pectoris (principal); Z68.42 Body mass index [BMI] 45.0-49.9, adult; J81.1 Chronic pulmonary edema; N18.9 Chronic kidney disease, unspecified; I12.9 Hypertensive chronic kidney disease with stage 1 through stage 4 chronic kidney disease, or unspecified chronic kidney disease; E66.01 Morbid (severe) obesity due to excess calories; E11.22 Type 2 diabetes mellitus with diabetic chronic kidney disease; I42.9 Cardiomyopathy, unspecified; G89.29 Other chronic pain; G47.33 Obstructive sleep apnea (adult) (pediatric); E78.00 Pure hypercholesterolemia, unspecified; E87.6 Hypokalemia; Z87.891 Personal history of nicotine dependence; Z88.6 Allergy status to analgesic agent
CPT/HCPCS: 36415; 36416; 36430; 71045; 80048; 82805; 85025; 85610; 85730; 86850; 86900; 86901; 93005; 93010; 93798; C9113; J0360; J0690; J1100; J1642; J1644; J1650; J1815; J1885; J2250; J2405; J2440; J2550; J2704; J2720; J2765; J3010; J3370; J3475; J3480; J3490; J7050; P9016; P9045; S0017; S0028

== ENCOUNTER 2020-03-09 13:22 | Outpatient (CLI) | payer BC ==
--- NOTE | 2020-03-09 14:00 | CT ---
CT ABDOMEN AND PELVIS WITHOUT IV CONTRAST: 03/09/20 INDICATIONS: Hematuria. FINDINGS: Lung bases clear. Liver, spleen and pancreas appear unremarkable. Stomach and duodenum unremarkable. Adrenal glands normal. Review of the kidneys shows no evidence of hydronephrosis. The ureters are normal caliber. There is n o evidence of urinary tract obstruction. Tiny 1 to 2 mm calculi are seen upper collecting structures of both kidneys. There is mild bilateral perinephric stranding which appears nonspecific and is slightly more pronounc ed on the right. The urinary bladder is mildly distended but is otherwise unremarkable. The prostate appears normal size. Small bowel loops appear normal. Appendix is normal. The colon is unremarkable. Aorta shows atheroscl erotic changes with calcification with no evidence of aneurysm. No mass or adenopathy. No free fluid. Degenerative spine changes with degenerative disc changes noted at L5-S1. IMPRESSION: 1. Tiny nonobstructing calculi in the upper collecting structures of both kidneys. 2. No evidence of ureteral calculus or obstruction. 3. Nonspecific perinephric stranding. POS: AGW
== END 2020-03-09 13:23 | disposition home or self-care (01) ==
LOC: BICCT 13:22
PROVIDERS: ATTEND Urology
DX: N40.1 Benign prostatic hyperplasia with lower urinary tract symptoms (principal); R39.198 Other difficulties with micturition; R31.29 Other microscopic hematuria; N28.9 Disorder of kidney and ureter, unspecified; N20.0 Calculus of kidney
CPT/HCPCS: 74176

== ENCOUNTER 2020-08-01 10:00 | Outpatient (CLI) | payer BC | END 2020-08-01 10:01 | disposition home or self-care (01) | LOC: DTY/OP 10:00 | PROVIDERS: ATTEND Surgery | DX: E11.9 Type 2 diabetes mellitus without complications (principal) | CPT/HCPCS: 97802 ==

== ENCOUNTER 2020-11-07 14:13 | Inpatient (IN) | payer BC ==
[2020-11-07] MEDS ORDERED: Piperacillin/Tazobactam 4.5 GM VIAL ONE (16:14)
[2020-11-07 16:45] LABS: #Basophils 0.1 thou/uL (0.0-0.2); #Eosinphils 0.3 thou/uL (0.0-0.7); #Lymphocytes 1.7 thou/uL (1.20-3.40); #Monocytes 0.7 thou/uL (0.11-0.59); #Neutrophils 6.6 thou/uL (1.40-6.50); %Basophils 1.1 % (0.0-1.0); %Eosinophils 2.9 % (0.0-10.0); %Lymphocytes 17.9 % (21.0-51.0); %Monocytes 7.4 % (0.0-10.0); %Neutrophils 70.7 % (42.0-75.0); Mean Corpuscular HGB CONC 33.5 g/dL (32.0-36.0); Mean Corpuscular Hemoglobin 29.6 pg (27.0-31.0); Mean Corpuscular Volume 88.4 fL (78.0-98.0); Mean Platelet Volume 7.4 fL (7.4-10.4); Platelet Count 291 thou/uL (130-400); RBC Distribution Width 11.3 % (11.5-14.5); Red Blood Cell (RBC) Count 5.38 mill/uL (4.70-6.10); White Blood Cell (WBC) Count 9.4 thou/uL (4.8-10.8)
[2020-11-07 17:07] LABS: ALT (SGPT) 21 U/L (8-55); AST (SGOT) 34 U/L (5-34); Albumin 2.6 g/dL (3.5-5.0); Alkaline Phosphatase 102 U/L (40-110); Anion Gap 15 mmol/L (10-20); BUN (Urea Nitrogen) 56 mg/dL (8.9-20.6); Bilirubin, Total 0.3 mg/dL (0.2-1.2); Calc. Creatinine Clearance 0 mL/min (70-130); Calcium 8.3 mg/dL (7.8-10.44); Carbon Dioxide 19 mmol/L (22-29); Chloride 108 mmol/L (98-107); Globulin 3.2 g/dL (2.4-3.5); Glucose 173 mg/dL (70-105); Potassium 4.8 mmol/L (3.5-5.1); Protein, Total 5.8 g/dL (6.0-8.3); Sodium 137 mmol/L (136-145)
[2020-11-07] MEDS ORDERED: Lidocaine 1% (PF) 30 ML VIAL ONE (17:51)
[2020-11-07] MEDS ORDERED: Fentanyl 100 MCG/2 ML VIAL ONE (18:12)
[2020-11-07] MEDS ORDERED: Acetaminophen 325 MG TAB PO PRN (19:50)
[2020-11-07] MEDS ORDERED: Ondansetron PF 4 MG/2 ML Vial IVP PRN (19:50)
[2020-11-07] MEDS ORDERED: Ondansetron ODT 4 MG TAB PO PRN (19:50)
[2020-11-07] MEDS ORDERED: Dextrose 50% Abboject 50 ML SYRINGE SLOW IVP PRN (20:20)
[2020-11-07] MEDS ORDERED: Dextrose 5% in Water 1,000 ML IV PRN (20:20)
[2020-11-07 20:34] VITALS: BMI 45.5
[2020-11-07] MEDS ORDERED: Icosapent Ethyl 1 GM CAPSULE PO SCH (22:00)
[2020-11-07] MEDS ORDERED: Gabapentin 300 MG CAP PO SCH (22:00)
[2020-11-07] MEDS ORDERED: Carvedilol 25 MG TAB PO SCH (22:00)
[2020-11-07] MEDS ORDERED: Rosuvastatin 20 MG TAB PO SCH (22:00)
[2020-11-07] MEDS: HYDROcodone/Acetaminophen 5/325 mg Tablet PO PRN (22:11)
[2020-11-07] MEDS: Sodium Chloride 0.9% 1,000 ML IV SCH (22:14)
[2020-11-08] MEDS: Piperacillin/Tazobactam 3.375 GM in Sodium Chloride 0.9% 100 ML IVPB SCH ×4 (01:18→23:37)
[2020-11-08 01:34] LABS: SARS-CoV-2 PCR by NAA Not Detected (NotDetected)
[2020-11-08] MEDS: HYDROcodone/Acetaminophen 5/325 mg Tablet PO PRN ×3 (06:00→23:39)
[2020-11-08 06:24] LABS: #Eosinphils 0.3 thou/uL (0.0-0.7); #Lymphocytes 1.5 thou/uL (1.20-3.40); #Monocytes 0.5 thou/uL (0.11-0.59); #Neutrophils 3.7 thou/uL (1.40-6.50); %Basophils 0.7 % (0.0-1.0); %Eosinophils 5.7 % (0.0-10.0); %Lymphocytes 25.4 % (21.0-51.0); %Monocytes 7.4 % (0.0-10.0); %Neutrophils 60.7 % (42.0-75.0); Hemoglobin 14.4 g/dL (14.0-18.0); Mean Corpuscular HGB CONC 32.5 g/dL (32.0-36.0); Mean Corpuscular Volume 89.1 fL (78.0-98.0); Mean Platelet Volume 7.1 fL (7.4-10.4); Platelet Count 261 thou/uL (130-400); RBC Distribution Width 11.4 % (11.5-14.5); Red Blood Cell (RBC) Count 4.98 mill/uL (4.70-6.10)
[2020-11-08 06:44] LABS: Anion Gap 12 mmol/L (10-20); BUN (Urea Nitrogen) 54 mg/dL (8.9-20.6); Calc. Creatinine Clearance 59 mL/min (70-130); Calcium 7.7 mg/dL (7.8-10.44); Carbon Dioxide 21 mmol/L (22-29); Chloride 110 mmol/L (98-107); Glucose 143 mg/dL (70-105); Potassium 4.4 mmol/L (3.5-5.1); Sodium 139 mmol/L (136-145)
[2020-11-08] MEDS ORDERED: Carvedilol 25 MG TAB PO SCH ×3 (08:00→09:00)
[2020-11-08] MEDS: Sodium Chloride 0.9% 1,000 ML IV SCH ×2 (08:42→21:24)
[2020-11-08] MEDS: Enoxaparin Sodium 40 MG/0.4 ML SYRINGE SC SCH (08:44)
[2020-11-08] MEDS: Icosapent Ethyl 1 GM CAPSULE PO SCH ×2 (08:44→21:25)
[2020-11-08] MEDS: Ezetimibe 10 MG TAB PO SCH (08:45)
[2020-11-08] MEDS: Carvedilol 6.25 MG TAB PO SCH ×2 (08:45→17:35)
[2020-11-08] MEDS: Gabapentin 300 MG CAP PO SCH ×3 (08:45→21:24)
[2020-11-08] MEDS: Amlodipine 10 MG TAB PO SCH (08:46)
[2020-11-08] MEDS: Aspirin 325 mg Enteric Coated Tablet PO SCH (08:46)
[2020-11-08] MEDS: Citalopram 20 MG TAB PO SCH (08:46)
[2020-11-08] MEDS ORDERED: Torsemide 10 MG TAB PO SCH (09:00)
[2020-11-08] MEDS: Lactinex Tablet PO SCH ×2 (10:36→21:25)
[2020-11-08] MEDS: Clindamycin/D5W 900 MG in Premix Bag 1 BAG IVPB SCH ×3 (10:37→23:37)
[2020-11-08] MEDS: Rosuvastatin 20 MG TAB PO SCH (21:25)
[2020-11-09] MEDS: Sodium Chloride 0.9% 1,000 ML IV SCH ×3 (05:00→23:27)
[2020-11-09 06:35] LABS: #Basophils 0.1 thou/uL (0.0-0.2); #Eosinphils 0.4 thou/uL (0.0-0.7); #Lymphocytes 1.8 thou/uL (1.20-3.40); #Monocytes 0.5 thou/uL (0.11-0.59); #Neutrophils 3.9 thou/uL (1.40-6.50); %Basophils 1.3 % (0.0-1.0); %Eosinophils 5.4 % (0.0-10.0); %Lymphocytes 26.3 % (21.0-51.0); Hemoglobin 14.1 g/dL (14.0-18.0); Mean Corpuscular HGB CONC 33.4 g/dL (32.0-36.0); Mean Corpuscular Hemoglobin 29.6 pg (27.0-31.0); Mean Corpuscular Volume 88.7 fL (78.0-98.0); Mean Platelet Volume 7.3 fL (7.4-10.4); Platelet Count 263 thou/uL (130-400); RBC Distribution Width 11.3 % (11.5-14.5); Red Blood Cell (RBC) Count 4.76 mill/uL (4.70-6.10); White Blood Cell (WBC) Count 6.6 thou/uL (4.8-10.8)
[2020-11-09 06:52] LABS: Anion Gap 10 mmol/L (10-20); BUN (Urea Nitrogen) 44 mg/dL (8.9-20.6); CRP (Inflammatory) 0.63 mg/dL (= or < 0.5); Calc. Creatinine Clearance 64 mL/min (70-130); Calcium 7.7 mg/dL (7.8-10.44); Carbon Dioxide 23 mmol/L (22-29); Chloride 108 mmol/L (98-107); Glucose 120 mg/dL (70-105); Potassium 4.4 mmol/L (3.5-5.1); Sodium 137 mmol/L (136-145)
[2020-11-09] MEDS: Ezetimibe 10 MG TAB PO SCH (08:23)
[2020-11-09] MEDS: Aspirin 325 mg Enteric Coated Tablet PO SCH (08:23)
[2020-11-09] MEDS: Gabapentin 300 MG CAP PO SCH ×3 (08:23→20:35)
[2020-11-09] MEDS: Lactinex Tablet PO SCH ×2 (08:23→20:35)
[2020-11-09] MEDS: Icosapent Ethyl 1 GM CAPSULE PO SCH ×2 (08:23→20:36)
[2020-11-09] MEDS: Carvedilol 6.25 MG TAB PO SCH ×2 (08:24→16:19)
[2020-11-09] MEDS: Citalopram 20 MG TAB PO SCH (08:24)
[2020-11-09] MEDS: Enoxaparin Sodium 40 MG/0.4 ML SYRINGE SC SCH (08:25)
[2020-11-09] MEDS: Clindamycin/D5W 900 MG in Premix Bag 1 BAG IVPB SCH ×2 (08:25→16:19)
[2020-11-09] MEDS: Amlodipine 10 MG TAB PO SCH (08:25)
[2020-11-09] MEDS: HYDROcodone/Acetaminophen 5/325 mg Tablet PO PRN ×2 (09:36→20:46)
[2020-11-09] MEDS: Piperacillin/Tazobactam 3.375 GM in Sodium Chloride 0.9% 100 ML IVPB SCH ×3 (09:38→23:27)
[2020-11-09] MEDS: hydrALAZINE 25 MG TAB PO SCH ×2 (15:13→20:36)
[2020-11-09] MEDS: HumaLOG 300 UNITS/3 ML VIAL SC PRN (16:31)
[2020-11-09] MEDS: Rosuvastatin 20 MG TAB PO SCH (20:35)
[2020-11-10] MEDS: Clindamycin/D5W 900 MG in Premix Bag 1 BAG IVPB SCH ×3 (00:47→16:20)
[2020-11-10 08:03] LABS: Anion Gap 13 mmol/L (10-20); BUN (Urea Nitrogen) 35 mg/dL (8.9-20.6); Calc. Creatinine Clearance 66 mL/min (70-130); Calcium 7.8 mg/dL (7.8-10.44); Carbon Dioxide 21 mmol/L (22-29); Chloride 111 mmol/L (98-107); Glucose 83 mg/dL (70-105); Potassium 4.3 mmol/L (3.5-5.1); Sodium 141 mmol/L (136-145)
[2020-11-10] MEDS: hydrALAZINE 25 MG TAB PO SCH ×3 (08:20→20:03)
[2020-11-10] MEDS: Amlodipine 10 MG TAB PO SCH (08:20)
[2020-11-10] MEDS: Enoxaparin Sodium 40 MG/0.4 ML SYRINGE SC SCH (08:20)
[2020-11-10] MEDS: Aspirin 325 mg Enteric Coated Tablet PO SCH (08:21)
[2020-11-10] MEDS: Gabapentin 300 MG CAP PO SCH ×3 (08:21→20:03)
[2020-11-10] MEDS: Lactinex Tablet PO SCH ×2 (08:21→20:03)
[2020-11-10] MEDS: Citalopram 20 MG TAB PO SCH (08:21)
[2020-11-10] MEDS: Carvedilol 6.25 MG TAB PO SCH ×2 (08:22→16:20)
[2020-11-10] MEDS: Ezetimibe 10 MG TAB PO SCH (08:22)
[2020-11-10] MEDS: Icosapent Ethyl 1 GM CAPSULE PO SCH ×2 (08:26→20:03)
[2020-11-10] MEDS: Piperacillin/Tazobactam 3.375 GM in Sodium Chloride 0.9% 100 ML IVPB SCH ×3 (10:00→23:37)
[2020-11-10] MEDS: HYDROcodone/Acetaminophen 5/325 mg Tablet PO PRN ×2 (10:07→20:02)
[2020-11-10] MEDS ORDERED: Fentanyl 100 MCG/2 ML VIAL ONE (11:13)
[2020-11-10] MEDS ORDERED: ePHEDrine Sulfate 50 MG/10 ML VIAL ONE (11:44)
[2020-11-10] MEDS ORDERED: Ondansetron PF 4 MG/2 ML Vial ONE (11:44)
[2020-11-10] MEDS ORDERED: PROPOFOL 200 MG/20 ML VIAL ONE (11:44)
[2020-11-10] MEDS ORDERED: Lidocaine 1% PF 5 ML VIAL ONE (11:44)
[2020-11-10] MEDS ORDERED: Lidocaine 1% w/Epinephrine 1:100K 20 ML VIAL ONE (12:21)
[2020-11-10] MEDS ORDERED: Bupivacaine PF 0.5% 30 ML VIAL ONE (12:21)
[2020-11-10] MEDS ORDERED: traMADol HCl 50 MG TAB PO PRN (13:05)
[2020-11-10] MEDS: Sodium Chloride 0.9% 1,000 ML IV SCH (14:48)
[2020-11-10] MEDS: Rosuvastatin 20 MG TAB PO SCH (20:03)
[2020-11-11] MEDS: Clindamycin/D5W 900 MG in Premix Bag 1 BAG IVPB SCH ×3 (00:53→16:15)
[2020-11-11] MEDS: Sodium Chloride 0.9% 1,000 ML IV SCH ×2 (06:13→15:33)
[2020-11-11 06:19] LABS: Hemoglobin A1c 5.8 % (4.0-6.0)
[2020-11-11 06:31] LABS: Anion Gap 12 mmol/L (10-20); BUN (Urea Nitrogen) 31 mg/dL (8.9-20.6); Calc. Creatinine Clearance 58 mL/min (70-130); Carbon Dioxide 21 mmol/L (22-29); Chloride 111 mmol/L (98-107); Glucose 90 mg/dL (70-105); Potassium 4.2 mmol/L (3.5-5.1); Sodium 140 mmol/L (136-145)
[2020-11-11] MEDS: Gabapentin 300 MG CAP PO SCH ×3 (07:47→20:55)
[2020-11-11] MEDS: Aspirin 325 mg Enteric Coated Tablet PO SCH (07:48)
[2020-11-11] MEDS: Icosapent Ethyl 1 GM CAPSULE PO SCH ×2 (07:48→20:56)
[2020-11-11] MEDS: hydrALAZINE 25 MG TAB PO SCH ×4 (07:48→20:55)
[2020-11-11] MEDS: Citalopram 20 MG TAB PO SCH (07:49)
[2020-11-11] MEDS: Amlodipine 10 MG TAB PO SCH (07:49)
[2020-11-11] MEDS: Lactinex Tablet PO SCH ×2 (07:49→20:56)
[2020-11-11] MEDS: Carvedilol 6.25 MG TAB PO SCH ×2 (07:50→16:15)
[2020-11-11] MEDS: Ezetimibe 10 MG TAB PO SCH (07:50)
[2020-11-11] MEDS: Enoxaparin Sodium 40 MG/0.4 ML SYRINGE SC SCH (07:50)
[2020-11-11] MEDS ORDERED: Carvedilol 6.25 MG TAB PO SCH ×2 (08:45)
[2020-11-11] MEDS: HYDROcodone/Acetaminophen 5/325 mg Tablet PO PRN ×2 (09:23→20:56)
[2020-11-11] MEDS: Piperacillin/Tazobactam 3.375 GM in Sodium Chloride 0.9% 100 ML IVPB SCH ×3 (09:24→23:28)
[2020-11-11] MEDS: Rosuvastatin 20 MG TAB PO SCH (20:56)
[2020-11-12] MEDS: Clindamycin/D5W 900 MG in Premix Bag 1 BAG IVPB SCH ×4 (01:02→21:25)
[2020-11-12] MEDS: Sodium Chloride 0.9% 1,000 ML IV SCH ×3 (01:08→23:55)
[2020-11-12 06:11] LABS: Anion Gap 12 mmol/L (10-20); BUN (Urea Nitrogen) 33 mg/dL (8.9-20.6); Calc. Creatinine Clearance 57 mL/min (70-130); Calcium 7.8 mg/dL (7.8-10.44); Carbon Dioxide 21 mmol/L (22-29); Chloride 111 mmol/L (98-107); Glucose 128 mg/dL (70-105); Sodium 140 mmol/L (136-145)
[2020-11-12] MEDS: Ezetimibe 10 MG TAB PO SCH (08:23)
[2020-11-12] MEDS: Lactinex Tablet PO SCH ×2 (08:24→21:24)
[2020-11-12] MEDS: hydrALAZINE 25 MG TAB PO SCH ×3 (08:24→21:23)
[2020-11-12] MEDS: Icosapent Ethyl 1 GM CAPSULE PO SCH ×2 (08:24→21:23)
[2020-11-12] MEDS: Gabapentin 300 MG CAP PO SCH ×3 (08:27→21:24)
[2020-11-12] MEDS: Aspirin 325 mg Enteric Coated Tablet PO SCH (08:27)
[2020-11-12] MEDS: Carvedilol 6.25 MG TAB PO SCH ×2 (08:27→16:50)
[2020-11-12] MEDS: Piperacillin/Tazobactam 3.375 GM in Sodium Chloride 0.9% 100 ML IVPB SCH ×3 (08:28→23:56)
[2020-11-12] MEDS: Citalopram 20 MG TAB PO SCH (08:28)
[2020-11-12] MEDS: Amlodipine 10 MG TAB PO SCH (08:28)
[2020-11-12] MEDS: Enoxaparin Sodium 40 MG/0.4 ML SYRINGE SC SCH (08:28)
[2020-11-12] MEDS: Rosuvastatin 20 MG TAB PO SCH (21:23)
[2020-11-12] MEDS: HYDROcodone/Acetaminophen 5/325 mg Tablet PO PRN (21:28)
[2020-11-13 05:24] LABS: #Basophils 0.1 thou/uL (0.0-0.2); #Eosinphils 0.3 thou/uL (0.0-0.7); #Lymphocytes 1.3 thou/uL (1.20-3.40); #Monocytes 0.7 thou/uL (0.11-0.59); #Neutrophils 8.5 thou/uL (1.40-6.50); %Basophils 0.8 % (0.0-1.0); %Eosinophils 2.5 % (0.0-10.0); %Lymphocytes 12.1 % (21.0-51.0); %Monocytes 6.1 % (0.0-10.0); %Neutrophils 78.6 % (42.0-75.0); Mean Corpuscular HGB CONC 33.6 g/dL (32.0-36.0); Mean Corpuscular Hemoglobin 29.9 pg (27.0-31.0); Mean Corpuscular Volume 89.1 fL (78.0-98.0); Platelet Count 285 thou/uL (130-400); RBC Distribution Width 11.6 % (11.5-14.5); Red Blood Cell (RBC) Count 5.01 mill/uL (4.70-6.10); White Blood Cell (WBC) Count 10.8 thou/uL (4.8-10.8)
[2020-11-13 05:45] LABS: Anion Gap 13 mmol/L (10-20); BUN (Urea Nitrogen) 37 mg/dL (8.9-20.6); Calc. Creatinine Clearance 56 mL/min (70-130); Calcium 8.2 mg/dL (7.8-10.44); Carbon Dioxide 20 mmol/L (22-29); Chloride 109 mmol/L (98-107); Glucose 121 mg/dL (70-105); Potassium 3.6 mmol/L (3.5-5.1); Sodium 138 mmol/L (136-145)
[2020-11-13] MEDS: Clindamycin/D5W 900 MG in Premix Bag 1 BAG IVPB SCH ×3 (05:53→21:29)
[2020-11-13] MEDS: Piperacillin/Tazobactam 3.375 GM in Sodium Chloride 0.9% 100 ML IVPB SCH ×3 (08:03→23:52)
[2020-11-13] MEDS: Lactinex Tablet PO SCH ×2 (08:05→21:28)
[2020-11-13] MEDS: Gabapentin 300 MG CAP PO SCH ×3 (08:05→21:28)
[2020-11-13] MEDS: hydrALAZINE 25 MG TAB PO SCH ×3 (08:06→21:28)
[2020-11-13] MEDS: Ezetimibe 10 MG TAB PO SCH (08:06)
[2020-11-13] MEDS: Aspirin 325 mg Enteric Coated Tablet PO SCH (08:06)
[2020-11-13] MEDS: Citalopram 20 MG TAB PO SCH (08:07)
[2020-11-13] MEDS: Carvedilol 6.25 MG TAB PO SCH ×2 (08:07→16:37)
[2020-11-13] MEDS: Amlodipine 10 MG TAB PO SCH (08:07)
[2020-11-13] MEDS: Enoxaparin Sodium 40 MG/0.4 ML SYRINGE SC SCH (08:09)
[2020-11-13] MEDS: Icosapent Ethyl 1 GM CAPSULE PO SCH ×2 (08:50→21:28)
[2020-11-13] MEDS: Rosuvastatin 20 MG TAB PO SCH (21:28)
[2020-11-14] MEDS: Clindamycin/D5W 900 MG in Premix Bag 1 BAG IVPB SCH ×3 (05:35→21:29)
[2020-11-14] MEDS: HumaLOG 300 UNITS/3 ML VIAL SC PRN (05:36)
[2020-11-14] MEDS: Piperacillin/Tazobactam 3.375 GM in Sodium Chloride 0.9% 100 ML IVPB SCH ×3 (07:55→23:29)
[2020-11-14] MEDS: Amlodipine 10 MG TAB PO SCH (07:57)
[2020-11-14] MEDS: hydrALAZINE 25 MG TAB PO SCH ×3 (07:57→21:28)
[2020-11-14] MEDS: Aspirin 325 mg Enteric Coated Tablet PO SCH (07:57)
[2020-11-14] MEDS: Carvedilol 6.25 MG TAB PO SCH (07:57)
[2020-11-14] MEDS: Citalopram 20 MG TAB PO SCH (07:58)
[2020-11-14] MEDS: Icosapent Ethyl 1 GM CAPSULE PO SCH ×2 (07:58→21:28)
[2020-11-14] MEDS: Ezetimibe 10 MG TAB PO SCH (07:58)
[2020-11-14] MEDS: Gabapentin 300 MG CAP PO SCH ×3 (07:58→21:28)
[2020-11-14] MEDS: Enoxaparin Sodium 40 MG/0.4 ML SYRINGE SC SCH (07:59)
[2020-11-14] MEDS: Lactinex Tablet PO SCH ×2 (07:59→21:28)
[2020-11-14] MEDS ORDERED: cloNIDine 0.1 MG TAB PO PRN (08:16)
[2020-11-14 11:02] LABS: Anion Gap 14 mmol/L (10-20); BUN (Urea Nitrogen) 36 mg/dL (8.9-20.6); Calc. Creatinine Clearance 53 mL/min (70-130); Calcium 7.8 mg/dL (7.8-10.44); Carbon Dioxide 20 mmol/L (22-29); Chloride 107 mmol/L (98-107); Glucose 187 mg/dL (70-105); Potassium 3.6 mmol/L (3.5-5.1); Sodium 137 mmol/L (136-145)
[2020-11-14] MEDS: Carvedilol 25 MG TAB PO SCH (16:27)
[2020-11-14] MEDS: Rosuvastatin 20 MG TAB PO SCH (21:28)
[2020-11-15] MEDS: Clindamycin/D5W 900 MG in Premix Bag 1 BAG IVPB SCH (05:43)
[2020-11-15] MEDS: Piperacillin/Tazobactam 3.375 GM in Sodium Chloride 0.9% 100 ML IVPB SCH (08:45)
[2020-11-15] MEDS: Icosapent Ethyl 1 GM CAPSULE PO SCH (08:45)
[2020-11-15] MEDS: Amlodipine 10 MG TAB PO SCH (08:46)
[2020-11-15] MEDS: Citalopram 20 MG TAB PO SCH (08:46)
[2020-11-15] MEDS: Carvedilol 25 MG TAB PO SCH (08:46)
[2020-11-15] MEDS: hydrALAZINE 25 MG TAB PO SCH (08:46)
[2020-11-15] MEDS: Lactinex Tablet PO SCH (08:47)
[2020-11-15] MEDS: Ezetimibe 10 MG TAB PO SCH (08:47)
[2020-11-15] MEDS: Enoxaparin Sodium 40 MG/0.4 ML SYRINGE SC SCH (08:47)
[2020-11-15] MEDS: Aspirin 325 mg Enteric Coated Tablet PO SCH (08:47)
[2020-11-15] MEDS: Gabapentin 300 MG CAP PO SCH (08:47)
[2020-11-15 11:19] LABS: Anion Gap 15 mmol/L (10-20); BUN (Urea Nitrogen) 39 mg/dL (8.9-20.6); Calc. Creatinine Clearance 53 mL/min (70-130); Carbon Dioxide 19 mmol/L (22-29); Chloride 109 mmol/L (98-107); Glucose 160 mg/dL (70-105); Potassium 3.9 mmol/L (3.5-5.1); Sodium 139 mmol/L (136-145)
[2020-11-15 11:43] VITALS: TEMP 98.2
[2020-11-15 11:45] VITALS: BP 169/80
[2020-11-16 12:12] LABS: Ref Lab Test Ordered ID SUS; Reference Lab Name LABCORP
== END 2020-11-15 12:28 | disposition home or self-care (01) | DRG 638 ==
LOC: ERS 14:13 → T4-A 18:09 → OBSVTOIN 11-08 07:24
PROVIDERS: ADMIT Family Medicine; ATTEND Internal Medicine
PROC: 0Y9N0ZZ Drainage of Left Foot, Open Approach (ICD-10-PCS; principal; 2020-11-10)
DX: E11.628 Type 2 diabetes mellitus with other skin complications (principal); L03.116 Cellulitis of left lower limb; E87.2 Acidosis; L02.612 Cutaneous abscess of left foot; Z68.42 Body mass index [BMI] 45.0-49.9, adult; Z20.822 Contact with and (suspected) exposure to COVID-19; I12.9 Hypertensive chronic kidney disease with stage 1 through stage 4 chronic kidney disease, or unspecified chronic kidney disease; E11.22 Type 2 diabetes mellitus with diabetic chronic kidney disease; I25.10 Atherosclerotic heart disease of native coronary artery without angina pectoris; E11.319 Type 2 diabetes mellitus with unspecified diabetic retinopathy without macular edema; N17.9 Acute kidney failure, unspecified; E88.09 Other disorders of plasma-protein metabolism, not elsewhere classified; E66.01 Morbid (severe) obesity due to excess calories; E11.40 Type 2 diabetes mellitus with diabetic neuropathy, unspecified; E78.00 Pure hypercholesterolemia, unspecified; G24.01 Drug induced subacute dyskinesia; N18.4 Chronic kidney disease, stage 4 (severe); E83.51 Hypocalcemia; Z95.1 Presence of aortocoronary bypass graft; Z88.5 Allergy status to narcotic agent; Z79.82 Long term (current) use of aspirin; Z79.899 Other long term (current) drug therapy; Z87.891 Personal history of nicotine dependence; Z79.84 Long term (current) use of oral hypoglycemic drugs; E88.81 Metabolic syndrome and other insulin resistance; D63.1 Anemia in chronic kidney disease; B96.89 Other specified bacterial agents as the cause of diseases classified elsewhere
CPT/HCPCS: 36415; 36416; 80048; 80053; 83036; 83605; 85025; 86140; 87070; 87076; 87077; 87205; 87635; 96365; 96375; 96376; G0378; J1650; J1815; J2001; J2405; J2543; J2704; J3010; J3490; S0020; U0003; U0005

== ENCOUNTER 2021-01-30 10:38 | Inpatient (IN) | payer BC ==
[2021-01-30 11:32] LABS: #Basophils 0.1 thou/uL (0.0-0.2); #Eosinphils 0.2 thou/uL (0.0-0.7); #Lymphocytes 1.5 thou/uL (1.20-3.40); #Monocytes 0.7 thou/uL (0.11-0.59); #Neutrophils 4.8 thou/uL (1.40-6.50); %Basophils 0.8 % (0.0-1.0); %Eosinophils 3.3 % (0.0-10.0); %Lymphocytes 20.8 % (21.0-51.0); %Neutrophils 66.1 % (42.0-75.0); Hemoglobin 11.9 g/dL (14.0-18.0); Mean Corpuscular HGB CONC 33.6 g/dL (32.0-36.0); Mean Corpuscular Hemoglobin 30.5 pg (27.0-31.0); Mean Corpuscular Volume 90.7 fL (78.0-98.0); Mean Platelet Volume 8.2 fL (7.4-10.4); Platelet Count 189 thou/uL (130-400); RBC Distribution Width 11.5 % (11.5-14.5); Red Blood Cell (RBC) Count 3.89 mill/uL (4.70-6.10); White Blood Cell (WBC) Count 7.3 thou/uL (4.8-10.8)
[2021-01-30 11:56] LABS: ALT (SGPT) 18 U/L (8-55); AST (SGOT) 28 U/L (5-34); Albumin 2.9 g/dL (3.5-5.0); Alkaline Phosphatase 67 U/L (40-110); Anion Gap 12 mmol/L (10-20); BUN (Urea Nitrogen) 69 mg/dL (8.9-20.6); Bilirubin, Total 0.3 mg/dL (0.2-1.2); Calc. Creatinine Clearance 0 mL/min (70-130); Calcium 7.7 mg/dL (7.8-10.44); Carbon Dioxide 25 mmol/L (22-29); Chloride 108 mmol/L (98-107); Globulin 2.4 g/dL (2.4-3.5); Glucose 129 mg/dL (70-105); Magnesium 2.2 mg/dL (1.6-2.6); Potassium 3.6 mmol/L (3.5-5.1); Protein, Total 5.3 g/dL (6.0-8.3); Sodium 141 mmol/L (136-145)
[2021-01-30] MEDS ORDERED: CEFAZOLIN 2 GM in Premix Bag 1 BAG IVPB SCH (12:45)
[2021-01-30] MEDS ORDERED: Labetalol HCl 100 MG/20 ML VIAL SLOW IVP PRN (13:01)
[2021-01-30] MEDS ORDERED: Dextrose 50% Abboject 50 ML SYRINGE SLOW IVP PRN (13:04)
[2021-01-30] MEDS ORDERED: Insulin Regular 300 UNITS/3 ML VIAL SC PRN ×2 (13:04)
[2021-01-30] MEDS ORDERED: Calcium Carbonate 500 MG ChewTAB PO PRN (13:04)
[2021-01-30] MEDS ORDERED: Dextrose 5% in Water 1,000 ML IV PRN (13:04)
[2021-01-30 13:27] LABS: SARS-CoV-2 NAA Rapid Test Not Detected (NotDetected)
[2021-01-30] MEDS ORDERED: Sodium Chloride 0.9% 40 ML ONE (16:35)
[2021-01-30] MEDS ORDERED: Heparin 10,000 UNITS/ 10 ML VIAL ONE (16:35)
[2021-01-30] MEDS ORDERED: Bupivacaine PF 0.5% 30 ML VIAL ONE (16:35)
[2021-01-30] MEDS ORDERED: Lidocaine 1% w/Epinephrine 1:100K 20 ML VIAL ONE (16:35)
[2021-01-30] MEDS ORDERED: Propofol 500 MG/50 ML VIAL ONE (16:42)
[2021-01-30] MEDS ORDERED: Fentanyl 100 MCG/2 ML VIAL ONE (16:42)
[2021-01-30] MEDS ORDERED: Midazolam HCl 2 mg/2 ml Vial ONE ×2 (16:42→17:08)
[2021-01-30] MEDS ORDERED: Ketamine 50 MG/ML (10ML VIAL) ONE (17:08)
[2021-01-30 17:40] LABS: Magnesium 2.2 mg/dL (1.6-2.6)
[2021-01-30] MEDS ORDERED: Ondansetron HCl/PF 4 MG/2 ML Vial IVP PRN (17:58)
[2021-01-30] MEDS ORDERED: Tuberculin PPD 0.1 ML VIAL I-DERMAL SCH (19:30)
[2021-01-30 19:58] VITALS: BMI 48.8
[2021-01-30] MEDS: Aspirin 325 mg Enteric Coated Tablet PO SCH ×2 (20:05→22:12)
[2021-01-30] MEDS: Carvedilol 25 MG TAB PO SCH ×2 (20:05→22:09)
[2021-01-30] MEDS ORDERED: HYDROcodone/Acetaminophen 5/325 mg Tablet PO PRN (21:03)
[2021-01-31] MEDS: Acetaminophen 325 MG TAB PO PRN (01:00)
[2021-01-31 06:15] LABS: #Basophils 0.1 thou/uL (0.0-0.2); #Eosinphils 0.3 thou/uL (0.0-0.7); #Lymphocytes 1.3 thou/uL (1.20-3.40); #Monocytes 0.6 thou/uL (0.11-0.59); #Neutrophils 4.4 thou/uL (1.40-6.50); %Eosinophils 3.9 % (0.0-10.0); %Lymphocytes 19.2 % (21.0-51.0); %Monocytes 9.2 % (0.0-10.0); %Neutrophils 66.6 % (42.0-75.0); Hemoglobin 11.7 g/dL (14.0-18.0); Mean Corpuscular HGB CONC 33.7 g/dL (32.0-36.0); Mean Corpuscular Hemoglobin 30.6 pg (27.0-31.0); Mean Corpuscular Volume 90.9 fL (78.0-98.0); Mean Platelet Volume 8.6 fL (7.4-10.4); Platelet Count 187 thou/uL (130-400); RBC Distribution Width 11.5 % (11.5-14.5); Red Blood Cell (RBC) Count 3.82 mill/uL (4.70-6.10); White Blood Cell (WBC) Count 6.6 thou/uL (4.8-10.8)
[2021-01-31 06:30] LABS: Anion Gap 9 mmol/L (10-20); BUN (Urea Nitrogen) 65 mg/dL (8.9-20.6); Calc. Creatinine Clearance 50 mL/min (70-130); Calcium 7.8 mg/dL (7.8-10.44); Carbon Dioxide 28 mmol/L (22-29); Chloride 109 mmol/L (98-107); Glucose 130 mg/dL (70-105); Potassium 3.9 mmol/L (3.5-5.1); Sodium 142 mmol/L (136-145)
[2021-01-31 06:50] LABS: HBSAB Concentration Less than 8.00 mIU/mL; HBSAg Index 0.18 S/CO (0-0.99); Hep B Core Total Ab Non-Reactive (NonReactive); Hep B Core Total Index 0.05 S/CO (0-0.79); Hep B Surf AB Non-Reactive (NonReactive); Hep B Surf Ag Non-Reactive S/CO (NonReactive); Hep C IgG Ab Non-Reactive (NonReactive); Hep C Index 0.15 S/CO (0-0.79)
[2021-01-31] MEDS ORDERED: Carvedilol 25 MG TAB PO SCH ×2 (08:00→21:00)
[2021-01-31] MEDS ORDERED: Heparin 10,000 UNITS/ 10 ML VIAL ONE (08:42)
[2021-01-31] MEDS ORDERED: Aspirin 325 mg Enteric Coated Tablet PO SCH (09:00)
[2021-01-31] MEDS: Citalopram 20 MG TAB PO SCH (12:43)
[2021-01-31] MEDS: Aspirin 325 mg Enteric Coated Tablet PO SCH (12:43)
[2021-01-31] MEDS: Ezetimibe 10 MG TAB PO SCH (12:43)
[2021-01-31] MEDS: hydrALAZINE 25 MG TAB PO SCH ×3 (12:45→21:11)
[2021-01-31] MEDS: Minoxidil 2.5 MG TAB PO SCH (12:45)
[2021-01-31] MEDS: Icosapent Ethyl 1 GM CAPSULE PO SCH ×2 (12:45→21:14)
[2021-01-31] MEDS: Gabapentin 300 MG CAP PO SCH ×2 (14:52→21:13)
[2021-01-31] MEDS: Heparin 5,000 UNITS/ML VIAL SC SCH ×2 (14:53→19:57)
[2021-01-31] MEDS ORDERED: CEFAZOLIN 2 GM in Premix Bag 1 BAG IVPB SCH (19:30)
[2021-01-31] MEDS: Rosuvastatin 10 MG TAB PO SCH (21:10)
[2021-02-01] MEDS: Carvedilol 25 MG TAB PO SCH ×2 (08:04→16:59)
[2021-02-01] MEDS ORDERED: Heparin 10,000 UNITS/ 10 ML VIAL ONE (08:47)
[2021-02-01] MEDS ORDERED: READ PPD TEST SITE PO SCH (09:00)
[2021-02-01] MEDS: hydrALAZINE 20 MG/ML VIAL SLOW IVP PRN (09:42)
[2021-02-01] MEDS ORDERED: Propofol 1,000 MG/100 ML VIAL IV ONE (12:48)
[2021-02-01] MEDS ORDERED: Fentanyl 100 MCG/2 ML VIAL ONE (12:48)
[2021-02-01] MEDS: Gabapentin 300 MG CAP PO SCH ×3 (12:59→21:08)
[2021-02-01] MEDS: hydrALAZINE 25 MG TAB PO SCH ×3 (13:00→20:27)
[2021-02-01] MEDS: Heparin 5,000 UNITS/ML VIAL SC SCH ×3 (13:00→20:27)
[2021-02-01] MEDS: Icosapent Ethyl 1 GM CAPSULE PO SCH ×2 (13:01→21:08)
[2021-02-01] MEDS ORDERED: Ketamine 50 MG/ML (10ML VIAL) ONE (13:10)
[2021-02-01] MEDS ORDERED: Midazolam HCl 2 mg/2 ml Vial ONE (13:10)
[2021-02-01] MEDS ORDERED: Lidocaine 1% w/Epinephrine 1:100K 20 ML VIAL ONE (13:16)
[2021-02-01] MEDS ORDERED: Heparin 5,000 UNITS/ML VIAL ONE (13:16)
[2021-02-01] MEDS ORDERED: Bupivacaine PF 0.5% 30 ML VIAL ONE (13:16)
[2021-02-01] MEDS ORDERED: PROPOFOL 200 MG/20 ML VIAL ONE (13:46)
[2021-02-01] MEDS ORDERED: ePHEDrine 50 MG/ML VIAL ONE (13:46)
[2021-02-01] MEDS ORDERED: Ondansetron PF 4 MG/2 ML Vial ONE (13:46)
[2021-02-01] MEDS ORDERED: Protamine Sulfate 50 MG/5 ML VIAL ONE (14:37)
[2021-02-01] MEDS ORDERED: Promethazine HCl 25 MG/ML VIAL IVPB PRN (15:04)
[2021-02-01] MEDS ORDERED: Promethazine HCl 25 MG/ML VIAL IM PRN (15:04)
[2021-02-01] MEDS ORDERED: Ondansetron HCl/PF 4 MG/2 ML Vial IVP PRN (15:04)
[2021-02-01] MEDS ORDERED: hydrALAZINE 20 MG/ML VIAL ONE (15:42)
[2021-02-01] MEDS: Aspirin 325 mg Enteric Coated Tablet PO SCH (16:57)
[2021-02-01] MEDS: Torsemide 10 MG TAB PO SCH (16:58)
[2021-02-01] MEDS: Minoxidil 2.5 MG TAB PO SCH (16:58)
[2021-02-01] MEDS: Ezetimibe 10 MG TAB PO SCH (16:59)
[2021-02-01] MEDS: Citalopram 20 MG TAB PO SCH (16:59)
[2021-02-01] MEDS ORDERED: Ondansetron PF 4 MG/2 ML Vial IVP PRN (20:08)
[2021-02-01] MEDS ORDERED: Ondansetron ODT 4 MG TAB PO PRN (20:08)
[2021-02-01] MEDS: Rosuvastatin 10 MG TAB PO SCH (21:08)
[2021-02-02] MEDS: Acetaminophen 325 MG TAB PO PRN (06:40)
[2021-02-02 07:29] VITALS: TEMP 97.8
[2021-02-02] MEDS ORDERED: Heparin 10,000 UNITS/ 10 ML VIAL ONE (09:12)
[2021-02-02] MEDS: hydrALAZINE 20 MG/ML VIAL SLOW IVP PRN (10:06)
[2021-02-02] MEDS: Heparin 5,000 UNITS/ML VIAL SC SCH ×2 (12:46→15:31)
[2021-02-02] MEDS: Carvedilol 25 MG TAB PO SCH ×2 (12:46→16:45)
[2021-02-02] MEDS: Gabapentin 300 MG CAP PO SCH ×2 (12:46→15:32)
[2021-02-02] MEDS: hydrALAZINE 25 MG TAB PO SCH ×2 (12:46→15:30)
[2021-02-02] MEDS: Icosapent Ethyl 1 GM CAPSULE PO SCH (12:47)
[2021-02-02] MEDS: Aspirin 325 mg Enteric Coated Tablet PO SCH (13:06)
[2021-02-02] MEDS: Citalopram 20 MG TAB PO SCH (13:07)
[2021-02-02] MEDS: Ezetimibe 10 MG TAB PO SCH (13:07)
[2021-02-02] MEDS: Minoxidil 2.5 MG TAB PO SCH (13:07)
[2021-02-02] MEDS: Torsemide 10 MG TAB PO SCH (13:08)
[2021-02-02 16:33] VITALS: BP 150/70
== END 2021-02-02 18:15 | disposition home or self-care (01) | DRG 673 ==
LOC: ERS 10:38 → ERHOLD 12:43 → T4-B 18:36
PROVIDERS: ADMIT Internal Medicine; ATTEND Internal Medicine
PROC: 0JH63XZ Insertion of Tunneled Vascular Access Device into Chest Subcutaneous Tissue and Fascia, Percutaneous Approach (ICD-10-PCS; principal; 2021-01-30)
PROC: 02HV33Z Insertion of Infusion Device into Superior Vena Cava, Percutaneous Approach (ICD-10-PCS; 2021-01-30)
PROC: B5181ZA Fluoroscopy of Superior Vena Cava using Low Osmolar Contrast, Guidance (ICD-10-PCS; 2021-01-30)
PROC: B548ZZA Ultrasonography of Superior Vena Cava, Guidance (ICD-10-PCS; 2021-01-30)
PROC: 031B0ZF Bypass Right Radial Artery to Lower Arm Vein, Open Approach (ICD-10-PCS; 2021-02-01)
DX: I12.0 Hypertensive chronic kidney disease with stage 5 chronic kidney disease or end stage renal disease (principal); N18.6 End stage renal disease; N17.9 Acute kidney failure, unspecified; Z68.42 Body mass index [BMI] 45.0-49.9, adult; Z20.822 Contact with and (suspected) exposure to COVID-19; E11.22 Type 2 diabetes mellitus with diabetic chronic kidney disease; E11.40 Type 2 diabetes mellitus with diabetic neuropathy, unspecified; E11.319 Type 2 diabetes mellitus with unspecified diabetic retinopathy without macular edema; E78.00 Pure hypercholesterolemia, unspecified; F41.9 Anxiety disorder, unspecified; D63.1 Anemia in chronic kidney disease; E88.81 Metabolic syndrome and other insulin resistance; I25.10 Atherosclerotic heart disease of native coronary artery without angina pectoris; I16.0 Hypertensive urgency; E66.01 Morbid (severe) obesity due to excess calories; E87.70 Fluid overload, unspecified; Z95.1 Presence of aortocoronary bypass graft; Z87.891 Personal history of nicotine dependence; Z88.5 Allergy status to narcotic agent; Z79.84 Long term (current) use of oral hypoglycemic drugs; Z79.82 Long term (current) use of aspirin; Z79.899 Other long term (current) drug therapy; Z83.3 Family history of diabetes mellitus
CPT/HCPCS: 36415; 36416; 71045; 80048; 80053; 82728; 83735; 85025; 86580; 86704; 86706; 86803; 87340; 90935; 93005; 93970; 94760; C1751; C1752; G0257; J0360; J0690; J1644; J1815; J2250; J2405; J2704; J2720; J3010; J3490; S0020; U0002; U0005

== ENCOUNTER 2021-02-09 19:00 | Outpatient (CLI) | payer BC | END 2021-02-09 19:01 | disposition home or self-care (01) | LOC: SLEEPLAB 19:00 | PROVIDERS: ATTEND Family Medicine | DX: G47.33 Obstructive sleep apnea (adult) (pediatric) (principal); G47.61 Periodic limb movement disorder; R53.83 Other fatigue; R06.83 Snoring; R35.1 Nocturia; I10 Essential (primary) hypertension; I11.0 Hypertensive heart disease with heart failure; I50.22 Chronic systolic (congestive) heart failure; G24.9 Dystonia, unspecified; E11.42 Type 2 diabetes mellitus with diabetic polyneuropathy; F32.9 Major depressive disorder, single episode, unspecified; G24.01 Drug induced subacute dyskinesia; S09.90XA Unspecified injury of head, initial encounter; G47.31 Primary central sleep apnea; E66.9 Obesity, unspecified; Z68.43 Body mass index [BMI] 50.0-59.9, adult | CPT/HCPCS: 95811 ==

== ENCOUNTER 2021-03-01 11:20 | Observation (INO) | payer BC ==
[~2021-03-01 11:20] MED LIST: Heparin 10,000 UNITS/ 10 ML VIAL ONE
[2021-03-01 12:03] LABS: #Basophils 0.1 thou/uL (0.0-0.2); #Eosinphils 0.3 thou/uL (0.0-0.7); #Lymphocytes 1.6 thou/uL (1.20-3.40); #Monocytes 0.6 thou/uL (0.11-0.59); %Basophils 1.1 % (0.0-1.0); %Eosinophils 4.2 % (0.0-10.0); %Lymphocytes 20.5 % (21.0-51.0); %Monocytes 8.5 % (0.0-10.0); %Neutrophils 65.7 % (42.0-75.0); Hemoglobin 12.1 g/dL (14.0-18.0); Mean Corpuscular HGB CONC 34.1 g/dL (32.0-36.0); Mean Corpuscular Hemoglobin 30.2 pg (27.0-31.0); Mean Corpuscular Volume 88.5 fL (78.0-98.0); Mean Platelet Volume 8.1 fL (7.4-10.4); Platelet Count 188 thou/uL (130-400); RBC Distribution Width 11.4 % (11.5-14.5); Red Blood Cell (RBC) Count 3.99 mill/uL (4.70-6.10); White Blood Cell (WBC) Count 7.6 thou/uL (4.8-10.8)
[2021-03-01 12:30] LABS: ALT (SGPT) 35 U/L (8-55); AST (SGOT) 39 U/L (5-34); Albumin 3.2 g/dL (3.5-5.0); Alkaline Phosphatase 79 U/L (40-110); Anion Gap 15 mmol/L (10-20); BUN (Urea Nitrogen) 71 mg/dL (8.9-20.6); Bilirubin, Total 0.4 mg/dL (0.2-1.2); Calc. Creatinine Clearance 0 mL/min (70-130); Calcium 7.9 mg/dL (7.8-10.44); Carbon Dioxide 21 mmol/L (22-29); Chloride 106 mmol/L (98-107); Globulin 2.5 g/dL (2.4-3.5); Glucose 193 mg/dL (70-105); Potassium 4.5 mmol/L (3.5-5.1); Protein, Total 5.7 g/dL (6.0-8.3); Sodium 137 mmol/L (136-145)
[2021-03-01] MEDS ORDERED: Sterile Water 10 ML VIAL IVP SCH ×2 (17:30→18:00)
[2021-03-01] MEDS ORDERED: Activase 2 MG VIAL CATH SCH ×2 (17:30→18:00)
[2021-03-01] MEDS ORDERED: cloNIDine 0.1 MG TAB PO SCH (20:15)
[2021-03-01] MEDS ORDERED: CEFAZOLIN 2 GM in Premix Bag 1 BAG IVPB SCH (21:30)
[2021-03-01] MEDS ORDERED: HYDROcodone/Acetaminophen 5/325 mg Tablet PO PRN (21:30)
[2021-03-01] MEDS ORDERED: Insulin Regular 300 UNITS/3 ML VIAL SC PRN (21:31)
[2021-03-01] MEDS ORDERED: Dextrose 5% in Water 1,000 ML IV PRN (21:31)
[2021-03-01] MEDS ORDERED: Dextrose 50% Abboject 50 ML SYRINGE SLOW IVP PRN (21:31)
[2021-03-01] MEDS ORDERED: Acetaminophen 325 MG TAB PO PRN (23:14)
[2021-03-01] MEDS ORDERED: hydrALAZINE 20 MG/ML VIAL SLOW IVP PRN (23:59)
[2021-03-01] MEDS ORDERED: Gabapentin 300 MG CAP PO SCH (23:59)
[2021-03-02 00:17] VITALS: BMI 44.9
[2021-03-02 01:37] LABS: SARS-CoV-2 NAA Rapid Test Not Detected (NotDetected)
[2021-03-02 05:52] LABS: #Basophils 0.1 thou/uL (0.0-0.2); #Eosinphils 0.3 thou/uL (0.0-0.7); #Lymphocytes 1.4 thou/uL (1.20-3.40); #Monocytes 0.6 thou/uL (0.11-0.59); #Neutrophils 4.3 thou/uL (1.40-6.50); %Basophils 1.6 % (0.0-1.0); %Eosinophils 4.8 % (0.0-10.0); %Lymphocytes 20.9 % (21.0-51.0); %Monocytes 9.4 % (0.0-10.0); %Neutrophils 63.2 % (42.0-75.0); Hemoglobin 12.1 g/dL (14.0-18.0); Mean Corpuscular Hemoglobin 30.1 pg (27.0-31.0); Mean Corpuscular Volume 88.5 fL (78.0-98.0); Platelet Count 174 thou/uL (130-400); RBC Distribution Width 11.4 % (11.5-14.5); Red Blood Cell (RBC) Count 4.01 mill/uL (4.70-6.10); White Blood Cell (WBC) Count 6.7 thou/uL (4.8-10.8)
[2021-03-02 06:01] LABS: ALT (SGPT) 26 U/L (8-55); AST (SGOT) 23 U/L (5-34); Albumin 2.9 g/dL (3.5-5.0); Alkaline Phosphatase 68 U/L (40-110); Anion Gap 10 mmol/L (10-20); BUN (Urea Nitrogen) 52 mg/dL (8.9-20.6); Bilirubin, Total 0.4 mg/dL (0.2-1.2); Calc. Creatinine Clearance 56 mL/min (70-130); Calcium 8.4 mg/dL (7.8-10.44); Carbon Dioxide 27 mmol/L (22-29); Chloride 106 mmol/L (98-107); Globulin 2.6 g/dL (2.4-3.5); Glucose 162 mg/dL (70-105); Potassium 3.7 mmol/L (3.5-5.1); Protein, Total 5.5 g/dL (6.0-8.3); Sodium 139 mmol/L (136-145)
[2021-03-02] MEDS ORDERED: Carvedilol 25 MG TAB PO SCH (09:00)
[2021-03-02] MEDS ORDERED: Torsemide 20 MG TAB PO SCH (09:00)
[2021-03-02] MEDS ORDERED: Ezetimibe 10 MG TAB PO SCH (09:00)
[2021-03-02] MEDS ORDERED: Aspirin 325 mg Enteric Coated Tablet PO SCH (09:00)
[2021-03-02] MEDS ORDERED: glipiZIDE 5 MG TAB PO SCH (09:00)
[2021-03-02] MEDS ORDERED: Minoxidil 2.5 MG TAB PO SCH (09:00)
[2021-03-02] MEDS ORDERED: Citalopram 20 MG TAB PO SCH (09:00)
[2021-03-02] MEDS ORDERED: Icosapent Ethyl 1 GM CAPSULE PO SCH (09:00)
[2021-03-02] MEDS ORDERED: Heparin 10,000 UNITS/ 10 ML VIAL ONE ×2 (09:28→13:04)
[2021-03-02] MEDS: Gabapentin 300 MG CAP PO SCH ×2 (09:35→14:50)
[2021-03-02] MEDS: hydrALAZINE 25 MG TAB PO SCH ×2 (09:35→14:50)
[2021-03-02] MEDS ORDERED: CEFAZOLIN 2 GM in Premix Bag 1 BAG IVPB SCH (11:15)
[2021-03-02] MEDS ORDERED: Lidocaine 1% w/Epinephrine 1:100K 30 ML VIAL ONE (13:04)
[2021-03-02] MEDS ORDERED: Bupivacaine PF 0.5% 30 ML VIAL ONE (13:04)
[2021-03-02] MEDS ORDERED: Sodium Chloride 0.9% 20 ML ONE (13:04)
[2021-03-02] MEDS ORDERED: PHENYLEPHRINE-NS 100 MCG/ML 10 ML SYRINGE ONE (13:27)
[2021-03-02] MEDS ORDERED: PROPOFOL 200 MG/20 ML VIAL ONE (13:27)
[2021-03-02] MEDS ORDERED: Lidocaine 2% PF 5 ML VIAL ONE (13:27)
[2021-03-02 20:46] VITALS: BP 156/86; TEMP 98.3
[2021-03-02] MEDS ORDERED: Rosuvastatin 20 MG TAB PO SCH (21:00)
[2021-03-02] MEDS ORDERED: Prevnar 13-Val Conj/PF 0.5 ML SYRINGE IM ONE (21:00)
== END 2021-03-02 20:34 | disposition home or self-care (01) ==
LOC: ERS 11:20 → SURG B 21:46
PROVIDERS: ADMIT Student in an Organized Health Care Education/Training Program; ATTEND Family Medicine
PROC: 0JPT3XZ Removal of Tunneled Vascular Access Device from Trunk Subcutaneous Tissue and Fascia, Percutaneous Approach (ICD-10-PCS; principal; 2021-03-02)
PROC: 0JH63XZ Insertion of Tunneled Vascular Access Device into Chest Subcutaneous Tissue and Fascia, Percutaneous Approach (ICD-10-PCS; 2021-03-02)
PROC: 05PY33Z Removal of Infusion Device from Upper Vein, Percutaneous Approach (ICD-10-PCS; 2021-03-02)
PROC: 05HM33Z Insertion of Infusion Device into Right Internal Jugular Vein, Percutaneous Approach (ICD-10-PCS; 2021-03-02)
DX: T82.41XA Breakdown (mechanical) of vascular dialysis catheter, initial encounter (principal); I13.2 Hypertensive heart and chronic kidney disease with heart failure and with stage 5 chronic kidney disease, or end stage renal disease; E11.22 Type 2 diabetes mellitus with diabetic chronic kidney disease; N18.6 End stage renal disease; I50.9 Heart failure, unspecified; E78.00 Pure hypercholesterolemia, unspecified; I25.118 Atherosclerotic heart disease of native coronary artery with other forms of angina pectoris; I45.10 Unspecified right bundle-branch block; E78.5 Hyperlipidemia, unspecified; D63.1 Anemia in chronic kidney disease; E88.09 Other disorders of plasma-protein metabolism, not elsewhere classified; E88.81 Metabolic syndrome and other insulin resistance; G24.01 Drug induced subacute dyskinesia; E66.01 Morbid (severe) obesity due to excess calories; Z68.41 Body mass index [BMI] 40.0-44.9, adult; Z87.891 Personal history of nicotine dependence; Z79.82 Long term (current) use of aspirin; Z79.84 Long term (current) use of oral hypoglycemic drugs; Z79.899 Other long term (current) drug therapy; Z88.5 Allergy status to narcotic agent; Z95.1 Presence of aortocoronary bypass graft; Z99.2 Dependence on renal dialysis; Z20.822 Contact with and (suspected) exposure to COVID-19
CPT/HCPCS: 36415; 37195; 71045; 80053; 85025; 90935; 93005; 96374; C1752; G0257; G0378; J0360; J0690; J1644; J2001; J2704; J2997; S0020; U0002

== ENCOUNTER 2021-05-12 11:00 | Inpatient (IN) | payer BC ==
[2021-05-17] MEDS ORDERED: Acetaminophen 500 MG TAB ONE (08:45)
[2021-05-17] MEDS ORDERED: Scopolamine 1.5 mg/72 hour Patch ONE (08:53)
[2021-05-17] MEDS ORDERED: Heparin 5,000 UNITS/ML VIAL ONE (08:53)
[2021-05-17] MEDS ORDERED: cefOXitin Sodium/Dextrose 2 GM/50 ML BAG ONE (08:53)
[2021-05-17] MEDS ORDERED: Heparin 10,000 UNITS/ 10 ML VIAL ONE (10:07)
[2021-05-17] MEDS ORDERED: Fentanyl 100 MCG/2 ML VIAL ONE ×2 (10:13→14:01)
[2021-05-17] MEDS ORDERED: HYDROmorphone 2 MG/ML VIAL ONE (10:13)
[2021-05-17] MEDS ORDERED: Lidocaine 1% w/Epinephrine 1:100K 20 ML VIAL ONE (10:13)
[2021-05-17] MEDS ORDERED: Bupivacaine 0.25% HCL 30 ML VIAL ONE (10:13)
[2021-05-17] MEDS ORDERED: Phenylephrine 10 MG/ML VIAL ONE (10:21)
[2021-05-17] MEDS ORDERED: Glycopyrrolate 0.2 MG/ML 5 ML SYRINGE ONE (10:35)
[2021-05-17] MEDS ORDERED: Dexamethasone 20 MG/5 ML VIAL ONE (10:35)
[2021-05-17] MEDS ORDERED: ePHEDrine 50 MG/ML VIAL ONE (10:35)
[2021-05-17] MEDS ORDERED: PHENYLEPHRINE-NS 100 MCG/ML 10 ML SYRINGE ONE (10:35)
[2021-05-17] MEDS ORDERED: Rocuronium Bromide 10 MG/ML (10ML VIAL) ONE (10:35)
[2021-05-17] MEDS ORDERED: diphenhydrAMINE 50 MG/ML VIAL ONE (10:35)
[2021-05-17] MEDS ORDERED: PROPOFOL 200 MG/20 ML VIAL ONE (10:35)
[2021-05-17] MEDS ORDERED: Ondansetron PF 4 MG/2 ML Vial ONE ×2 (10:35→12:56)
[2021-05-17] MEDS ORDERED: Promethazine HCl 25 MG/ML VIAL IVPB PRN (11:42)
[2021-05-17] MEDS ORDERED: Ondansetron HCl/PF 4 MG/2 ML Vial IVP PRN (11:42)
[2021-05-17] MEDS ORDERED: Promethazine HCl 25 MG/ML VIAL IM PRN ×2 (11:42→13:11)
[2021-05-17] MEDS ORDERED: diphenhydrAMINE 50 MG/ML VIAL IVP PRN (13:11)
[2021-05-17] MEDS ORDERED: Morphine 4 MG/ML VIAL SLOW IVP PRN ×2 (13:11→13:31)
[2021-05-17] MEDS ORDERED: Dextrose 5% in Water 1,000 ML IV PRN (13:11)
[2021-05-17] MEDS ORDERED: Ondansetron PF 4 MG/2 ML Vial IVP PRN (13:11)
[2021-05-17] MEDS ORDERED: Dextrose 50% Abboject 50 ML SYRINGE SLOW IVP PRN (13:11)
[2021-05-17] MEDS ORDERED: hydrALAZINE 20 MG/ML VIAL SLOW IVP PRN (13:11)
[2021-05-17] MEDS ORDERED: HumaLOG 300 UNITS/3 ML VIAL SC PRN (13:11)
[2021-05-17] MEDS ORDERED: Sodium Chloride 0.9% 1,000 ML IV SCH (13:15)
[2021-05-17] MEDS ORDERED: Fentanyl 100 MCG/2 ML VIAL SLOW IVP PRN (13:55)
[2021-05-17] MEDS: Carvedilol 25 MG TAB PO SCH (20:29)
[2021-05-17] MEDS: Gabapentin 300 MG CAP PO SCH (20:30)
[2021-05-17] MEDS: hydrALAZINE 25 MG TAB PO SCH (20:31)
[2021-05-17] MEDS: Hydrocodone-Acetamin 15 ML UDCUP PO PRN (20:38)
[2021-05-17 21:56] VITALS: BMI 45.5
[2021-05-18] MEDS: Hydrocodone-Acetamin 15 ML UDCUP PO PRN ×2 (00:38→06:32)
[2021-05-18 05:51] LABS: #Lymphocytes 0.9 thou/uL (1.20-3.40); #Monocytes 0.6 thou/uL (0.11-0.59); #Neutrophils 8.8 thou/uL (1.40-6.50); %Basophils 0.2 % (0.0-1.0); %Eosinophils 0.1 % (0.0-10.0); %Lymphocytes 8.4 % (21.0-51.0); %Monocytes 6.1 % (0.0-10.0); %Neutrophils 85.3 % (42.0-75.0); Mean Corpuscular Hemoglobin 30.3 pg (27.0-31.0); Mean Corpuscular Volume 89.1 fL (78.0-98.0); Mean Platelet Volume 7.2 fL (7.4-10.4); Platelet Count 240 thou/uL (130-400); RBC Distribution Width 11.7 % (11.5-14.5); White Blood Cell (WBC) Count 10.4 thou/uL (4.8-10.8)
[2021-05-18 06:19] LABS: Anion Gap 18 mmol/L (10-20); BUN (Urea Nitrogen) 35 mg/dL (8.9-20.6); Calc. Creatinine Clearance 43 mL/min (70-130); Carbon Dioxide 25 mmol/L (22-29); Chloride 100 mmol/L (98-107); Glucose 143 mg/dL (70-105); Potassium 4.5 mmol/L (3.5-5.1); Sodium 138 mmol/L (136-145)
[2021-05-18] MEDS: hydrALAZINE 25 MG TAB PO SCH ×2 (07:26→08:57)
[2021-05-18] MEDS: Gabapentin 300 MG CAP PO SCH (08:57)
[2021-05-18] MEDS ORDERED: Ezetimibe 10 MG TAB PO SCH (09:00)
[2021-05-18] MEDS ORDERED: Citalopram 20 MG TAB PO SCH (09:00)
[2021-05-18] MEDS ORDERED: Torsemide 20 MG TAB PO SCH (09:00)
[2021-05-18] MEDS ORDERED: Minoxidil 2.5 MG TAB PO SCH (09:00)
[2021-05-18] MEDS ORDERED: Pantoprazole 40 MG VIAL IVP SCH (09:00)
[2021-05-18] MEDS: Carvedilol 25 MG TAB PO SCH (09:05)
[2021-05-18] MEDS ORDERED: traMADol HCl 50 MG TAB PO PRN (09:36)
[2021-05-18] MEDS ORDERED: Acetaminophen 500 MG TAB PO PRN (09:37)
[2021-05-18 14:27] VITALS: BP 146/76; TEMP 97.8
== END 2021-05-18 13:58 | disposition home or self-care (01) | DRG 619 ==
LOC: SURG A 05-17 07:40
PROVIDERS: ADMIT Specialist; ATTEND Specialist
PROC: 0DB64Z3 Excision of Stomach, Percutaneous Endoscopic Approach, Vertical (ICD-10-PCS; principal; 2021-05-17)
DX: E66.01 Morbid (severe) obesity due to excess calories (principal); N18.6 End stage renal disease; I12.0 Hypertensive chronic kidney disease with stage 5 chronic kidney disease or end stage renal disease; E11.22 Type 2 diabetes mellitus with diabetic chronic kidney disease; I25.10 Atherosclerotic heart disease of native coronary artery without angina pectoris; E78.00 Pure hypercholesterolemia, unspecified; G89.29 Other chronic pain; E78.2 Mixed hyperlipidemia; D63.1 Anemia in chronic kidney disease; Z68.42 Body mass index [BMI] 45.0-49.9, adult; Z99.2 Dependence on renal dialysis; Z87.891 Personal history of nicotine dependence; Z88.2 Allergy status to sulfonamides; Z88.5 Allergy status to narcotic agent; Z01.812 Encounter for preprocedural laboratory examination; Z20.822 Contact with and (suspected) exposure to COVID-19
CPT/HCPCS: 36415; 36416; 80048; 80053; 83036; 85025; 88307; 94760; J0694; J1100; J1170; J1200; J1644; J2370; J2405; J2704; J3010; J3490; J7050; S0020; U0002; U0003; U0005

== ENCOUNTER 2021-05-16 16:49 | Outpatient (CLI) | payer BC ==
[2021-05-16 17:26] LABS: #Basophils 0.1 10x3/uL (0.0-0.2); #Eosinphils 0.2 10x3/uL (0.0-0.5); #Monocytes 0.5 10x3/uL (0.0-1.1); #Neutrophils 5.3 10x3/uL (1.5-8.4); %Basophils 1.1 % (0.0-2.0); %Eosinophils 2.9 % (0.0-6.0); %Lymphocytes 18.6 % (18.0-47.0); %Monocytes 6.8 % (0.0-10.0); %Neutrophils 70.3 % (40.0-75.0); Hemoglobin 14.4 g/dL (13.5-17.5); Mean Corpuscular HGB CONC 34.1 g/dL (32.0-36.0); Mean Corpuscular Hemoglobin 29.4 pg (27.0-33.0); Mean Corpuscular Volume 86.1 fl (81.2-95.1); Mean Platelet Volume 9.7 fl (7.4-10.4); Platelet Count 235 10x3/uL (150-450); RBC Distribution Width 12.2 % (11.5-14.5); White Blood Cell (WBC) Count 7.5 10x3/uL (3.5-10.5)
[2021-05-16 17:44] LABS: ALT (SGPT) 21 U/L (8-55); AST (SGOT) 25 U/L (5-34); Albumin 3.7 g/dL (3.5-5.0); Alkaline Phosphatase 87 U/L (40-110); Anion Gap 15 mmol/L (10-20); BUN (Urea Nitrogen) 42 mg/dL (8.9-20.6); Bilirubin, Total 0.6 mg/dL (0.2-1.2); Calc. Creatinine Clearance 0 mL/min (70-130); Calcium 8.5 mg/dL (7.8-10.44); Carbon Dioxide 23 mmol/L (22-29); Chloride 106 mmol/L (98-107); Globulin 2.6 g/dL (2.4-3.5); Glucose 97 mg/dL (70-105); Potassium 4.2 mmol/L (3.5-5.1); Protein, Total 6.3 g/dL (6.0-8.3); Sodium 140 mmol/L (136-145)
[2021-05-16 20:27] LABS: Hemoglobin A1c 5.9 % (4.0-6.0)
[2021-05-17 08:17] LABS: SARS-CoV-2 NAA Rapid Test Not Detected (NotDetected)
== END 2021-05-16 16:50 | disposition home or self-care (01) ==
LOC: LABBT 16:49
PROVIDERS: ATTEND Specialist
DX: Z01.812 Encounter for preprocedural laboratory examination (principal); I25.10 Atherosclerotic heart disease of native coronary artery without angina pectoris; E10.59 Type 1 diabetes mellitus with other circulatory complications; E10.22 Type 1 diabetes mellitus with diabetic chronic kidney disease; N18.9 Chronic kidney disease, unspecified; E66.01 Morbid (severe) obesity due to excess calories; H35.00 Unspecified background retinopathy; Z68.43 Body mass index [BMI] 50.0-59.9, adult; Z20.822 Contact with and (suspected) exposure to COVID-19
CPT/HCPCS: 80053; 83036; 85025; U0002; U0003; U0005

== ENCOUNTER 2021-07-09 14:58 | Emergency (ER) | payer BC ==
[~2021-07-09 14:58] MED LIST changes: -Heparin 10,000 UNITS/ 10 ML VIAL ONE; +Iopamidol-370 76% 500 ML 1 ML ONE
[2021-07-09 16:09] LABS: #Monocytes 0.5 thou/uL (0.11-0.59); #Neutrophils 4.4 thou/uL (1.40-6.50); %Basophils 0.4 % (0.0-1.0); %Eosinophils 0.7 % (0.0-10.0); %Monocytes 8.3 % (0.0-10.0); %Neutrophils 73.6 % (42.0-75.0); Hemoglobin 17.1 g/dL (14.0-18.0); Mean Corpuscular HGB CONC 34.8 g/dL (32.0-36.0); Mean Corpuscular Hemoglobin 31.2 pg (27.0-31.0); Mean Corpuscular Volume 89.8 fL (78.0-98.0); Mean Platelet Volume 7.7 fL (7.4-10.4); Platelet Count 247 thou/uL (130-400); RBC Distribution Width 12.3 % (11.5-14.5); Red Blood Cell (RBC) Count 5.49 mill/uL (4.70-6.10)
[2021-07-09] MEDS ORDERED: Ondansetron PF 4 MG/2 ML Vial ONE (16:38)
[2021-07-09] MEDS ORDERED: HYDROmorphone 0.5 MG/0.5 ML SYRINGE ONE (16:39)
[2021-07-09 17:45] LABS: ALT (SGPT) 14 U/L (8-55); AST (SGOT) 17 U/L (5-34); Alkaline Phosphatase 102 U/L (40-110); Anion Gap 16 mmol/L (10-20); BUN (Urea Nitrogen) 30 mg/dL (8.9-20.6); Bilirubin, Total 0.9 mg/dL (0.2-1.2); Calc. Creatinine Clearance 0 mL/min (70-130); Calcium 9.1 mg/dL (7.8-10.44); Carbon Dioxide 21 mmol/L (22-29); Chloride 110 mmol/L (98-107); Globulin 3.3 g/dL (2.4-3.5); Glucose 90 mg/dL (70-105); Lipase 26 U/L (8-78); Potassium 4.7 mmol/L (3.5-5.1); Protein, Total 6.3 g/dL (6.0-8.3); Sodium 142 mmol/L (136-145)
== END 2021-07-09 18:34 | disposition home or self-care (01) ==
LOC: ERS 14:58
DX: R10.10 Upper abdominal pain, unspecified (principal); I12.0 Hypertensive chronic kidney disease with stage 5 chronic kidney disease or end stage renal disease; N18.6 End stage renal disease; E11.22 Type 2 diabetes mellitus with diabetic chronic kidney disease; E11.319 Type 2 diabetes mellitus with unspecified diabetic retinopathy without macular edema; E78.00 Pure hypercholesterolemia, unspecified; Z87.891 Personal history of nicotine dependence
CPT/HCPCS: 36415; 74177; 80053; 83690; 85025; 93005; 96374; 96375; J1170; J2405; Q9967

== ENCOUNTER 2021-07-10 18:38 | Emergency (ER) | payer BC | END 2021-07-10 18:51 | disposition left against medical advice (07) | LOC: ERS 18:38 | DX: Z53.21 Procedure and treatment not carried out due to patient leaving prior to being seen by health care provider (principal) ==